=== PATIENT | female | born 1945 | race Caucasian/White ===

== ENCOUNTER 2017-06-12 07:41 | Day surgery (SDC) | payer MEDICARE ==
[2017-06-11 15:32] VITALS: BMI 31.2
--- NOTE | 2017-06-12 06:11 | HP ---
SHORT STAY HISTORY AND PHYSICAL HISTORY OF PRESENT ILLNESS: This is a 71-year-old female with anemia and occult GI bleeding. The patient was hospitalized in 01/2017 with abdominal pain and abnormal CAT scan. She has normal CBC. She was found to have poor energy, fatigue and tiredness over the last several months. She has seen Dr. Sheppard and was found to have anemia, which is microcytic. She was also seen by Dr. Vernon. The patient presently has no history of melena, hematochezia. No hematuria. The patient has seen Dr. Vernon and has received iron therapy. She had multiple stool testing done for occult blood. She had 5 stools done and all stools are positive for occult blood. The patient's anemia is getting better. She is currently much better. She comes in for an EGD and colonoscopy for anemia and also occult GI bleeding. ALLERGIES: SULFA. MEDICAL ILLNESSES: 1. Hypertension. 2. Hyperlipidemia. 3. Diabetes mellitus. 5. Colon polyp. 6. History of gastric polyp. 7. Family history of colon cancer. PHYSICAL EXAMINATION: VITAL SIGNS: Pulse is 70, blood pressure 130/80. HEENT: Conjunctivae are clear. CARDIOVASCULAR SYSTEM: Within normal limits. ABDOMEN: Soft to palpate. No organomegaly. No tenderness. No masses. ADMITTING DIAGNOSES: 1. Anemia, occult gastrointestinal bleed. 2. Colon polyp. PLAN: EGD and colonoscopy. MTDD
--- NOTE | 2017-06-12 11:53 | OP ---
DATE OF PROCEDURE: 06/12/2017 SURGEON: Oneida Miranda M.D. OPERATIVE PROCEDURE: 1. Colonoscopy with polypectomy. 2. Colonoscopy with 10 [place] heater probe therapy of polypectomy site. PREOPERATIVE DIAGNOSES: 1. Anemia. 2. History of colon polyp. 3. Occult gastrointestinal bleeding. POSTOPERATIVE DIAGNOSES: 1. Sigmoid diverticular disease. 2. Large, broad based sessile polyp in cecum, ascending colon. 3. Sessile polyp, hepatic flexure. 4. A sessile polyp descending colon, 2 sessile polyps x2 sigmoid colon. PROCEDURE IN DETAIL: The patient was placed on her left lateral position and was given sedation by A nesthesia Department. A rectal exam was done before the scope was advanced into the rectum. No lesi ons were felt on rectal exam. A [employer] video colonoscope was introduced into the rectum and advanced all the way into the cecum. The prep was excellent. The mucosa appeared normal. The appendiceal o rifice, ileocecal valve, and cecum, no pathology seen. The patient did have a polyp over the ascendi ng colon, cecum. This was a sessile broad-based polyp. This was removed completely with polypectomy snare. Post-polypectomy the polypectomy site showed mild friability. It was elected to cauterize t he polypectomy site with a 10-[place] probe with good hemostasis. A sessile hepatic flexure polyp rem corina with snare cautery with good hemostasis. Another sessile polyp over the descending colon remove d with snare cautery with good hemostasis. There were 2 small sessile polyps seen over the sigmoid c olon. Both were removed. The sigmoid colon does showed scattered diverticular disease. Retroflexio n of the scope in the rectum was normal.
--- NOTE | 2017-06-12 12:09 | OP ---
DATE OF SURGERY: 06/12/2017 DESCRIPTION OF PROCEDURE: A Pentax video gastroscope under direct vision was passed down the orophar ynx, past the GE junction, into the stomach and subsequently into the descending duodenum. The esoph ageal mucosa appeared normal. The GE junction, no pathology seen. Retroflexion failed to show any l esions in the fundus or cardia. The gastric body, gastric antrum, and incisura angularis, no patholo gy seen. The duodenal bulb and also the postbulbar area of the duodenum shows multiple ulcerations. The descending duodenum, no pathology seen. Biopsies obtained from the gastric antrum and gastric b tala. The stomach was decompressed and the scope removed. DISCHARGE PLANNING: Ms. Erika Guerrier is a very pleasant 71-year-old female with family h istory of colon cancer and also has a personal history of colon polyp. The patient was found to have anemia recently and has had stool exam done. The stool exam came back positive for occult blood. S he underwent a colonoscopy, polypectomy and also EGD with biopsy. DISCHARGE RECOMMENDATIONS: 1. Omeprazole 40 mg once a day. 2. Continue iron supplement. 3. The patient advised to call me if she develops abdominal pain, hematochezia or fever. 4. To come back to the clinic in 2 weeks.
[2017-06-12] MEDS ORDERED: Lidocaine 1% PF 5 ML VIAL ONE (14:45)
[2017-06-12] MEDS ORDERED: PROPOFOL 200 MG/20 ML VIAL ONE (14:45)
== END 2017-06-12 12:00 | disposition home or self-care (01) ==
LOC: SDC 07:41
PROVIDERS: ATTEND Internal Medicine Gastroenterology
PROC: 0DBK8ZX Excision of Ascending Colon, Via Natural or Artificial Opening Endoscopic, Diagnostic (ICD-10-PCS; principal; 2017-06-12)
PROC: 0DBL8ZX Excision of Transverse Colon, Via Natural or Artificial Opening Endoscopic, Diagnostic (ICD-10-PCS; 2017-06-12)
PROC: 0DBN8ZX Excision of Sigmoid Colon, Via Natural or Artificial Opening Endoscopic, Diagnostic (ICD-10-PCS; 2017-06-12)
PROC: 0DBM8ZX Excision of Descending Colon, Via Natural or Artificial Opening Endoscopic, Diagnostic (ICD-10-PCS; 2017-06-12)
PROC: 0DBH8ZX Excision of Cecum, Via Natural or Artificial Opening Endoscopic, Diagnostic (ICD-10-PCS; 2017-06-12)
PROC: 0DB68ZX Excision of Stomach, Via Natural or Artificial Opening Endoscopic, Diagnostic (ICD-10-PCS; 2017-06-12)
DX: D12.0 Benign neoplasm of cecum (principal); D12.4 Benign neoplasm of descending colon; D12.3 Benign neoplasm of transverse colon; D12.5 Benign neoplasm of sigmoid colon; K29.50 Unspecified chronic gastritis without bleeding; D50.0 Iron deficiency anemia secondary to blood loss (chronic); R19.5 Other fecal abnormalities; K57.30 Diverticulosis of large intestine without perforation or abscess without bleeding; I10 Essential (primary) hypertension; E78.5 Hyperlipidemia, unspecified; E11.9 Type 2 diabetes mellitus without complications; Z88.2 Allergy status to sulfonamides; Z80.0 Family history of malignant neoplasm of digestive organs; Z87.19 Personal history of other diseases of the digestive system; Z98.890 Other specified postprocedural states
CPT/HCPCS: 36416; 88305; 88312; J2001; J2704

== ENCOUNTER 2018-01-03 08:56 | Outpatient (CLI) | payer MEDICARE ==
--- NOTE | 2018-01-03 11:13 | ULT ---
COMPLETE ABDOMINAL ULTRASOUND: History: 72-year-old female with iron deficiency anemia, chronic kidney disease stage 3, check for liver size and texture and splenic size. R16.1 FINDINGS: The liver is minimally enlarged with heterogeneous echogenicity measuring approximately 20 cm in cran iocaudal length. The gallbladder has been removed. Common bile duct 0.8 cm without significant intrah epatic ductal dilatation. The visualized pancreas, IVC, and aorta are unremarkable. The spleen is at least borderline enlarged. By prior CT, maximum anterior posterior length was approximately 15 cm, on today's study spleen size measures approximately 6.1 x 11.3 x 11.5 cm which by volume size is certai nly borderline to minimally enlarged and probably not significantly changed. 4.4 x 4.9 cm diameter le ft lower pole renal cyst with other smaller too small to definitely characterized low attenuation foc i, evidence for multiple small cysts. No renal hydronephrosis. No abnormal fluid collection. IMPRESSION: Minimal liver enlargement with heterogenicity, evidence for nonspecific hepatic parenchymal disease. Status post cholecystectomy with 0.8 cm common bile duct but no intrahepatic ductal dilatation. At le ast borderline sized to minimally enlarged spleen with little change from the prior study, CT of 02-11-17. Bilateral renal cysts. No evidence for other significant acute process. POS: [facility]
== END 2018-01-03 08:57 | disposition home or self-care (01) ==
LOC: SCSULT 08:56
PROVIDERS: ATTEND Internal Medicine Medical Oncology
DX: R16.2 Hepatomegaly with splenomegaly, not elsewhere classified (principal); N28.1 Cyst of kidney, acquired; K76.9 Liver disease, unspecified; Z90.49 Acquired absence of other specified parts of digestive tract
CPT/HCPCS: 76700

== ENCOUNTER 2020-02-27 13:12 | Inpatient (IN) | payer MEDICARE, OTHER ==
[2020-02-27] MEDS ORDERED: Acetaminophen 500 MG TAB ONE (14:09)
--- NOTE | 2020-02-27 14:12 | RAD ---
Exam: Chest one view HISTORY:Cough. Positive COVID 9 days ago. Dyspnea. Comparison: 09/05/2016 FINDINGS: Cardiac silhouette: Normal Aorta: Atherosclerotic Pulmonary vessels: Normal Costophrenic angles: Clear LUNGS: Scattered interstitial opacities may represent infiltrate. No consolidation. Pneumothorax: None Osseous abnormalities: None IMPRESSION: 1. Scattered interstitial opacities may represent infiltrate from COVID pneumonia. 2. Atherosclerosis.
[2020-02-27 14:31] LABS: #Basophils 0.1 thou/uL (0.0-0.2); #Eosinphils 0.2 thou/uL (0.0-0.7); #Lymphocytes 1.4 thou/uL (1.20-3.40); #Monocytes 0.9 thou/uL (0.11-0.59); #Neutrophils 5.6 thou/uL (1.40-6.50); %Basophils 0.7 % (0.0-1.0); %Lymphocytes 17.1 % (21.0-51.0); %Monocytes 10.8 % (0.0-10.0); %Neutrophils 69.4 % (42.0-75.0); Mean Corpuscular HGB CONC 32.5 g/dL (32.0-36.0); Mean Corpuscular Hemoglobin 30.8 pg (27.0-31.0); Mean Corpuscular Volume 94.6 fL (78.0-98.0); Mean Platelet Volume 9.8 fL (7.4-10.4); Platelet Count 107 thou/uL (130-400); RBC Distribution Width 14.8 % (11.5-14.5); Red Blood Cell (RBC) Count 3.23 mill/uL (4.20-5.40)
[2020-02-27 14:53] LABS: ALT (SGPT) 29 U/L (8-55); AST (SGOT) 66 U/L (5-34); Albumin 2.9 g/dL (3.4-4.8); Alkaline Phosphatase 46 U/L (40-110); Anion Gap 10 mmol/L (10-20); BUN (Urea Nitrogen) 33 mg/dL (9.8-20.1); Bilirubin, Total 0.9 mg/dL (0.2-1.2); Calc. Creatinine Clearance 0 mL/min (70-130); Carbon Dioxide 19 mmol/L (23-31); Chloride 110 mmol/L (98-107); Estimated GFR-MDRD 31; Globulin 3.1 g/dL (2.4-3.5); Glucose 147 mg/dL (83-110); Magnesium 1.4 mg/dL (1.6-2.6); Potassium 4.4 mmol/L (3.5-5.1); Sodium 135 mmol/L (136-145)
[2020-02-27] MEDS ORDERED: Sodium Chloride 0.9% 1,000 ML IV SCH (16:15)
[2020-02-27] MEDS ORDERED: HYDROcodone/Acetaminophen 5/325 mg Tablet PO PRN (16:16)
[2020-02-27] MEDS ORDERED: Guaifenesin DM 100-10/5 ML UDCUP PO PRN (16:16)
[2020-02-27] MEDS ORDERED: Calcium Carbonate 500 MG ChewTAB PO PRN (16:16)
[2020-02-27] MEDS ORDERED: Acetaminophen 325 MG TAB PO PRN (16:16)
[2020-02-27] MEDS ORDERED: Senokot S 8.6-50 MG TAB PO PRN (16:16)
[2020-02-27] MEDS ORDERED: Ondansetron PF 4 MG/2 ML Vial IVP PRN (16:17)
[2020-02-27] MEDS ORDERED: Dextrose 50% Abboject 50 ML SYRINGE SLOW IVP PRN (16:21)
[2020-02-27] MEDS ORDERED: Dextrose 5% in Water 1,000 ML IV PRN (16:21)
[2020-02-27] MEDS ORDERED: Dexamethasone 4 mg/ml Vial SLOW IVP SCH (16:30)
--- NOTE | 2020-02-27 16:35 | PDOC.HHP ---
Hospitalist HPI - History of Present Illness Short of breath History of Present Illness: The patient is a pleasant 74 years old female who has significant past medical history of diabetes type 2, hypertension, dyslipidemia, who was diagnosed with Covid 9 days ago. Presented to ED with worsening dyspnea and hypoxia. Patient reported for the last couple days, she experienced more cough and progressive worsening dyspnea, and generalized weakness. It was reported that when EMS arrived, her oxygen was in the low 90, she was placed on 2 L. She also reports some diarrhea for the past few days, watery, denies any hematochezia. Patient reports positive for sick contact. Initial chest work-up in the ED including chest x-ray, finding consistent with Covid pneumonia. Patient also with multiple electrolytes abnormalities, secondary to her diarrhea. Patient attributes to the fact that she was on a course of antibiotics recently. She denies any abdominal pain. Hospitalist was asked to admit the patient for acute hypoxic respiratory failure secondary to Covid pneumonia Hospitalist ROS - Review of Systems Other: Complete review of systems have been assessed and discussed with the patient. Negative and positive pertinent symptoms noted in the HPI; ALL other systems are reviewed and negative. Hospitalist History - Past Medical History Cardiac: reports: HTN, Hyperlipidemia Endocrine: reports: Diabetes - Past Surgical History Past Surgical History: reports: Cholecystectomy, Tubal Ligation - Family History Family History: reports: no pertinent history - Social History Smoking Status: Never smoker Alcohol: reports: None Drugs: reports: none Living Situation: With Family Activity level: independent ambulation - Exam General Appearance: NAD, awake alert Eye: PERRL, anicteric sclera ENT: normocephalic atraumatic Neck: supple, symmetric Heart: RRR, no murmur Respiratory: rhonchi, wheezes Gastrointestinal: soft, non-tender Extremities: no cyanosis Skin: normal turgor Neurological: cranial nerve grossly intact, normal sensation to touch Musculoskeletal: normal tone, normal strength Psychiatric: normal affect, normal behavior, A&O x 3 Hospitalist Results - Labs Result Diagrams: 02/27/20 14:07 02/27/20 14:07 Lab results: WBC 8.0 thou/uL (4.8-10.8) 02/27/20 14:07 Hgb 10.0 g/dL (12.0-16.0) L 02/27/20 14:07 Hct 30.6 % (36.0-47.0) L 02/27/20 14:07 MCV 94.6 fL (78.0-98.0) 02/27/20 14:07 Plt Count 107 thou/uL (130-400) L 02/27/20 14:07 Neutrophils % 69.4 % (42.0-75.0) 02/27/20 14:07 Sodium 135 mmol/L (136-145) L 02/27/20 14:07 Potassium 4.4 mmol/L (3.5-5.1) 02/27/20 14:07 Chloride 110 mmol/L (98-107) H 02/27/20 14:07 Carbon Dioxide 19 mmol/L (23-31) L 02/27/20 14:07 BUN 33 mg/dL (9.8-20.1) H 02/27/20 14:07 Creatinine 1.61 mg/dL (0.6-1.1) H 02/27/20 14:07 Glucose 147 mg/dL (83-110) H 02/27/20 14:07 Calcium 8.0 mg/dL (7.8-10.44) 02/27/20 14:07 Total Bilirubin 0.9 mg/dL (0.2-1.2) 02/27/20 14:07 AST 66 U/L (5-34) H 02/27/20 14:07 ALT 29 U/L (8-55) 02/27/20 14:07 Alkaline Phosphatase 46 U/L (40-110) 02/27/20 14:07 Troponin I 0.020 ng/mL (< 0.028) 02/27/20 14:07 Serum Total Protein 6.0 g/dL (6.0-8.3) 02/27/20 14:07 Albumin 2.9 g/dL (3.4-4.8) L 02/27/20 14:07 - EKG Interpretation EKG: Exam: Chest one view HISTORY:Cough. Positive COVID 9 days ago. Dyspnea. Comparison: 09/05/2016 FINDINGS: Cardiac silhouette: Normal Aorta: Atherosclerotic Pulmonary vessels: Normal Costophrenic angles: Clear LUNGS: Scattered interstitial opacities may represent infiltrate. No consolidation. Pneumothorax: None Osseous abnormalities: None IMPRESSION: 1. Scattered interstitial opacities may represent infiltrate from COVID pneumonia. 2. Atherosclerosis. Hospitalist H&P A/P - Plan Plan: This is a pleasant 74 years old female who has significant past medical history of diabetes type 2, hypertension, dyslipidemia, who was diagnosed with positive for Covid 9 days ago, presented to ED with worsening dyspnea, generalized weakness, and diarrhea. Acute hypoxic respiratory failure secondary to Covid pneumonia --Continue O2 supplement, empiric IV antibiotics with azithromycin/Rocephin. --IV Decadron, vitamin C, D, zinc --Supportive cares COVID-Pneumonia --Management as above Diarrhea --This could be related to coronavirus, however, patient was attributed to recent antibiotic. check C. difficile --Start her on probiotics Diabetes type 2 --Pending home medication, will start her on low-dose basal insulin given the fact that she is on steroid, insulin sliding scale Hypertension --BP stable, pending home medication Dyslipidemia --Resume home meds when able LALA --Secondary to volume depletion, from diarrhea --Gentle IV fluid hydration Electrolyte abnormality --Replacement Mg, follow AM DVT ppx: Lovenox GI ppx: Pepcid as pt is on steroid Code Status: Full code Anticipated Dispo: Home once medically stable
[2020-02-27] MEDS ORDERED: Magnesium Sulfate 4 GM in Sodium Chloride 0.9% 250 ML 250 ML IVPB SCH (16:45)
[2020-02-27] MEDS ORDERED: Benzonatate 100 MG CAP PO PRN (16:46)
[2020-02-27] MEDS ORDERED: cefTRIAXone\\ROCEPHIN 1 GM in Sodium Chloride 0.9% 100 ML IVPB SCH ×2 (17:00→21:00)
[2020-02-27] MEDS ORDERED: Azithromycin 500 MG in Sodium Chloride 0.9% 250 ML 250 ML IVPB SCH ×2 (18:00→20:00)
[2020-02-27] MEDS ORDERED: Famotidine/PF 20 mg/2ml Vial SLOW IVP SCH (21:00)
[2020-02-27] MEDS ORDERED: Cholecalciferol 1,000 UNITS (25 MCG) TAB PO SCH (21:00)
[2020-02-27] MEDS ORDERED: Insulin Glargine 15 UNITS in Pre-Filled Syringe SC SCH (21:00)
[2020-02-27] MEDS: Lactinex Tablet PO SCH (21:22)
[2020-02-27] MEDS: Albuterol Sulfate 2.5 mg/3 ml Neb EZPAP SCH (22:07)
[2020-02-28] MEDS: Albuterol 200 PUFF (6.7GM INHALER) INH SCH ×4 (00:17→11:26)
[2020-02-28] MEDS: Albuterol Sulfate 2.5 mg/3 ml Neb EZPAP SCH (00:58)
[2020-02-28 04:57] LABS: #Lymphocytes 0.7 thou/uL (1.20-3.40); #Monocytes 0.1 thou/uL (0.11-0.59); %Basophils 0.5 % (0.0-1.0); %Eosinophils 0.2 % (0.0-10.0); %Lymphocytes 24.7 % (21.0-51.0); %Monocytes 4.2 % (0.0-10.0); %Neutrophils 70.4 % (42.0-75.0); Hemoglobin 9.3 g/dL (12.0-16.0); Mean Corpuscular HGB CONC 32.5 g/dL (32.0-36.0); Mean Corpuscular Volume 95.1 fL (78.0-98.0); Mean Platelet Volume 10.2 fL (7.4-10.4); Platelet Count 80 thou/uL (130-400); RBC Distribution Width 14.6 % (11.5-14.5); White Blood Cell (WBC) Count 2.9 thou/uL (4.8-10.8)
[2020-02-28 05:20] LABS: CRP (Inflammatory) 2.09 mg/dL (= or < 0.5); Magnesium 2.4 mg/dL (1.6-2.6)
[2020-02-28 05:24] LABS: Anion Gap 13 mmol/L (10-20); BUN (Urea Nitrogen) 34 mg/dL (9.8-20.1); Calc. Creatinine Clearance 39 mL/min (70-130); Calcium 8.4 mg/dL (7.8-10.44); Carbon Dioxide 16 mmol/L (23-31); Chloride 112 mmol/L (98-107); Estimated GFR-MDRD 34; Glucose 200 mg/dL (83-110); Potassium 4.6 mmol/L (3.5-5.1); Sodium 136 mmol/L (136-145)
[2020-02-28] MEDS: HumaLOG 300 UNITS/3 ML VIAL SC PRN ×2 (06:05→11:26)
[2020-02-28] MEDS: Lactinex Tablet PO SCH (08:15)
[2020-02-28] MEDS ORDERED: Enoxaparin Sodium 40 MG/0.4 ML SYRINGE SC SCH (09:00)
[2020-02-28] MEDS ORDERED: Zinc Sulfate 220 MG CAP PO SCH (09:00)
[2020-02-28] MEDS ORDERED: Dexamethasone 4 mg/ml Vial SLOW IVP SCH (09:00)
[2020-02-28 12:02] VITALS: BP 170/75; TEMP 98.2
--- NOTE | 2020-02-28 14:09 | EKG ---
Test Reason : Blood Pressure : / mmHG Vent. Rate : 066 BPM Atrial Rate : 066 BPM P-R Int : 114 ms QRS Dur : 080 ms QT Int : 424 ms P-R-T Axes : 037 -15 157 degrees QTc Int : 444 ms Normal sinus rhythm Voltage criteria for left ventricular hypertrophy Abnormal ECG Confirmed by ISAIAH GOLDMAN ([id number]), medical representative LIAM BLANC ([id number]) on 02/28/2020 2:08:47 PM Referred By: Confirmed By:ISAIAH Stubbs
[2020-02-28] MEDS ORDERED: FLU VACC QS2020-21(65YR UP)/PF 240 MCG/0.7 ML SYRINGE IM ONE (21:00)
[2020-02-28] MEDS ORDERED: Famotidine/PF 20 mg/2ml Vial SLOW IVP SCH (21:00)
--- NOTE | 2020-03-02 15:48 | DIS ---
DATE OF ADMISSION: 02/27/2020 DATE OF DISCHARGE: 02/28/2020 DISCHARGE DIAGNOSES: 1. COVID-19 infection. 2. Diarrhea. 3. Diabetes mellitus type 2. 4. Hypertension. 5. Hyperlipidemia. 6. Acute kidney injury. 7. Electrolyte abnormality. DISCHARGE MEDICATIONS: No new discharge medications. HISTORY OF PRESENT ILLNESS AND HOSPITAL COURSE: The patient is a 74-year-old female with past medical history of diabetes mellitus type 2, hypertension, hyperlipidemia, who was diagnosed with COVID-19 nine days prior to presentation. She presented to the ER with complaints of diarrhea and shortness of breath. The patient was admitted to the hospital. She was given IV fluids for dehydration. The patient remained stable on room air and did not exhibit any hypoxia. At this time, she is stable for discharge with outpatient followup with her PCP in 2 weeks. Job ID: [id number]
== END 2020-02-28 12:50 | disposition home or self-care (01) | DRG 177 ==
LOC: ERS 13:12 → 2SW 15:14
PROVIDERS: ADMIT Family Medicine; ATTEND Family Medicine
DX: U07.1 COVID-19 (principal); J96.01 Acute respiratory failure with hypoxia; J12.89 Other viral pneumonia; N17.9 Acute kidney failure, unspecified; R53.1 Weakness; I10 Essential (primary) hypertension; E11.9 Type 2 diabetes mellitus without complications; E78.5 Hyperlipidemia, unspecified; F41.9 Anxiety disorder, unspecified; Z88.2 Allergy status to sulfonamides; Z98.51 Tubal ligation status; Z90.710 Acquired absence of both cervix and uterus; Z90.49 Acquired absence of other specified parts of digestive tract; R19.7 Diarrhea, unspecified; E87.8 Other disorders of electrolyte and fluid balance, not elsewhere classified
CPT/HCPCS: 36415; 36416; 71045; 80048; 80053; 82728; 83735; 84484; 85025; 85652; 86140; 93005; J0456; J0696; J1100; J1815; J3475; J3490; J7050; J7611; S0028

== ENCOUNTER 2020-03-02 21:35 | Inpatient (IN) | payer MEDICARE, OTHER ==
[2020-03-02 23:50] LABS: Bacteria/HPF None Seen HPF (None Seen); Bilirubin Negative (Negative); Blood, Urine Trace (Negative); Clarity Turbid (Clear); Glucose, Urine (Dipstick) 50 mg/dL (Negative); Ketone, Urine Trace mg/dL (Negative); Leukocyte Negative Leu/uL (Negative); Nitrite Negative (Negative); Protein, Urine (Dipstick) 100 mg/dL (Neg-Trace); Specific Gravity, Urine 1.022 (1.002-1.036); Squamous Epithelial None Seen HPF (0-3); Urobilinogen Normal mg/dL (Less than 2)
--- NOTE | 2020-03-02 23:55 | RAD ---
Chest AP view INDICATION: History of dyspnea, cough and shortness of breath COMPARISON: Prior exam dated February 27, 2020 FINDINGS: Lungs: There is worsening airspace disease of the left lower lobe. Patchy airspace opacities persist within both lungs in the upper lobes. Cardiac silhouette: Mild cardiomegaly is stable Pulmonary vasculature: Normal Pleural spaces: No pleural effusion or pneumothorax is demonstrated. Upper abdomen: No abnormality seen. Osseous structures: No acute osseous abnormality. Additional findings: None. IMPRESSION: Worsening bilateral pneumonia particularly in the left lower lobe.
[2020-03-03] MEDS ORDERED: Sodium Chloride 0.9% 100 ML ONE (00:01)
[2020-03-03] MEDS ORDERED: Cefepime 2 GM VIAL ONE (00:01)
[2020-03-03 00:37] LABS: Hemoglobin 10.4 g/dL (12.0-16.0); Mean Corpuscular HGB CONC 31.9 g/dL (32.0-36.0); Mean Corpuscular Hemoglobin 30.7 pg (27.0-31.0); Mean Corpuscular Volume 96.3 fL (78.0-98.0); Mean Platelet Volume 9.9 fL (7.4-10.4); Platelet Count 136 thou/uL (130-400); RBC Distribution Width 15.5 % (11.5-14.5); White Blood Cell (WBC) Count 27.8 thou/uL (4.8-10.8)
[2020-03-03 00:54] LABS: Band 19 % (5-11); Hypochromia SLIGHT = 6-15 cells (100X) (0-5/hpf); Lymphocytes 2 % (21-51); MDiff Complete? YES; Monocytes 1 % (0-10); Neutrophil 78 % (42-75); Platelet Morphology Comment Appears Adequate
[2020-03-03 00:58] LABS: ALT (SGPT) 41 U/L (8-55); AST (SGOT) 72 U/L (5-34); Albumin 2.5 g/dL (3.4-4.8); Alkaline Phosphatase 66 U/L (40-110); Anion Gap 22 mmol/L (10-20); BUN (Urea Nitrogen) 86 mg/dL (9.8-20.1); Bilirubin, Total 0.9 mg/dL (0.2-1.2); CK (CPK) 654 U/L (29-168); Calc. Creatinine Clearance 0 mL/min (70-130); Calcium 6.1 mg/dL (7.8-10.44); Chloride 102 mmol/L (98-107); Estimated GFR-MDRD 6; Globulin 3.3 g/dL (2.4-3.5); Glucose 216 mg/dL (83-110); Protein, Total 5.8 g/dL (6.0-8.3); Sodium 127 mmol/L (136-145)
[2020-03-03 01:05] LABS: Carbon Dioxide 8 mmol/L (23-31)
[2020-03-03 01:25] LABS: CKMB 25.6 ng/mL (0-6.6)
[2020-03-03] MEDS ORDERED: Sodium Chloride 0.9% 1,000 ML IV SCH (01:30)
[2020-03-03] MEDS ORDERED: Vancomycin HCl 1 GM in Sodium Chloride 0.9% 250 ML 300 ML IVPB SCH (01:30)
[2020-03-03] MEDS ORDERED: Acetaminophen 325 MG TAB PO PRN (01:31)
[2020-03-03] MEDS ORDERED: Calcium Gluconate 4.6 MEQ in Sodium Chloride 0.9% 100 ML IVPB SCH (01:45)
[2020-03-03] MEDS ORDERED: Calcium Gluconate 100 MG/ML 10 ML IVPB SCH (01:45)
[2020-03-03] MEDS ORDERED: metroNIDAZOLE 500 MG/100 ML BAG ONE (01:47)
[2020-03-03] MEDS ORDERED: Dextrose 5% in Water 1,000 ML IV PRN (02:14)
[2020-03-03] MEDS ORDERED: Dextrose 50% Abboject 50 ML SYRINGE SLOW IVP PRN (02:14)
--- NOTE | 2020-03-03 02:14 | PDOC.EVN ---
Event Note - Event Note Event Note: [id number]
--- NOTE | 2020-03-03 02:52 | HP ---
CHIEF COMPLAINT: Shortness of breath, diarrhea, and weakness. HISTORY OF PRESENT ILLNESS: Ms. Guerrier is a 74-year-old female who was diagnosed with COVID-19 two weeks ago, presented to the emergency room with cough, shortness of breath, diarrhea, and generalized weakness. The patient was recently discharged from the hospital for the same complaint. The patient was diagnosed with COVID-19 two weeks ago. She denies chest pain, nausea, vomiting, abdominal pain, body aches, fever, or chills. Workup in the emergency room, patient was found to be in acute renal failure with elevated creatinine of 6.2. Also, she was found to have elevated WBC count of 27.8. Elevated lactic acid. Detectable troponin. Chest x-ray showed worsening of bilateral pneumonia, particularly in the left lower lobe. Septic workup in the ED. Started on IV antibiotics. The patient is also started on IV fluids. The patient is being admitted to the hospital for further management. PAST MEDICAL HISTORY: 1. Hypertension. 2. Diabetes mellitus, type 2. 3. Hyperlipidemia. PAST SURGICAL HISTORY: 1. Cholecystectomy. 2. Hysterectomy. 3. Tubal ligation. PAST PSYCHIATRIC HISTORY: Anxiety. SOCIAL HISTORY: Lives with family at home. Denies alcohol drinking. Denies drug use. No smoking history. HOME MEDICATIONS: Please see home medication reconciliation form for updated medications. ALLERGIES: ALLERGIC TO SULFA. REVIEW OF SYSTEMS: Review of 14 systems negative except what is mentioned in history of present illness. PHYSICAL EXAMINATION: GENERAL: The patient is awake, alert, in moderate distress. VITAL SIGNS: Blood pressure 118/48, pulse is 91, respiratory rate is 20, temperature is 98.6, oxygen saturations 97% on 2 L/minute nasal cannula. HEAD AND NECK: Normocephalic, atraumatic. NECK: Supple. CHEST: Coarse bilateral breath sounds. HEART: S1, S2. Regular. ABDOMEN: Nondistended. Mildly tender. Bowel sounds present. NEUROLOGIC: Awake, alert, oriented x3. No focal deficits. PSYCH: Unable to assess. EXTREMITIES: No clubbing, no cyanosis. LABORATORY DATA: Troponin 0.07. Sodium is 126, BUN is 86, creatinine 6.2, calcium is 6.1. WBC count is 27.8, hemoglobin 10.4, platelets 136, bands are 19. Lactic acid 3.4. Chest x-ray as mentioned above in history of present illness. ASSESSMENT: 1. Sepsis. 2. Pneumonia ? healthcare-associated pneumonia. 3. Diarrhea. 4. Acute renal failure. 5. COVID-19 virus infection, diagnosed two weeks ago. 6. Diabetes mellitus with hyperglycemia. 7. Hypocalcemia. 8. Detectable troponin. No chest pain. 9. Hyponatremia. 10. Lactic acidosis. PLAN: 1. Admit to IMCU. 2. Septic workup including blood cultures. 3. Sent for C diff. 4. IV fluids. 5. Monitor kidney function and urine output. 6. IV antibiotics. The patient will be started on cefepime, vancomycin, and metronidazole for now, reassess in a.m. 7. Consider Nephrology consultation in a.m. for evaluation and further management. 8. Replace calcium. 9. Reconcile home medications. 10. DVT prophylaxis as appropriate. 11. Expected length of stay, 3 midnights or more. Job ID: [id number]
[2020-03-03 03:52] LABS: Lactic Acid 3.3 mmol/L (0.5-2.2)
[2020-03-03 03:56] LABS: ALT (SGPT) 37 U/L (8-55); AST (SGOT) 59 U/L (5-34); Albumin 2.3 g/dL (3.4-4.8); Alkaline Phosphatase 57 U/L (40-110); Anion Gap 20 mmol/L (10-20); BUN (Urea Nitrogen) 85 mg/dL (9.8-20.1); Bilirubin, Total 0.8 mg/dL (0.2-1.2); Calc. Creatinine Clearance 0 mL/min (70-130); Chloride 105 mmol/L (98-107); Estimated GFR-MDRD 7; Glucose 203 mg/dL (83-110); Potassium 4.6 mmol/L (3.5-5.1); Protein, Total 5.3 g/dL (6.0-8.3); Sodium 129 mmol/L (136-145)
[2020-03-03 04:00] LABS: Calcium 5.9 mg/dL (7.8-10.44); Carbon Dioxide 9 mmol/L (23-31)
[2020-03-03 04:39] LABS: Band 26 % (5-11); Hemoglobin 10.1 g/dL (12.0-16.0); Hypochromia SLIGHT = 6-15 cells (100X) (0-5/hpf); MDiff Complete? YES; Mean Corpuscular HGB CONC 31.2 g/dL (32.0-36.0); Mean Corpuscular Hemoglobin 30.4 pg (27.0-31.0); Mean Corpuscular Volume 97.5 fL (78.0-98.0); Mean Platelet Volume 9.8 fL (7.4-10.4); Monocytes 1 % (0-10); Neutrophil 73 % (42-75); Platelet Count 112 thou/uL (130-400); Platelet Morphology Comment Appears Decreased; RBC Distribution Width 15.3 % (11.5-14.5); White Blood Cell (WBC) Count 24.4 thou/uL (4.8-10.8)
[2020-03-03] MEDS ORDERED: Vancomycin 1.5 GRAM/300 ML BAG 1.5 GM in Premix Bag 1 BAG IVPB SCH (05:00)
[2020-03-03] MEDS: HumaLOG 300 UNITS/3 ML VIAL SC PRN (05:24)
[2020-03-03] MEDS: metroNIDAZOLE 500 MG in Premix Bag 1 BAG IVPB SCH ×3 (05:24→21:06)
[2020-03-03 05:44] LABS: Lactic Acid 2.9 mmol/L (0.5-2.2)
[2020-03-03 07:56] LABS: Glucose 157 mg/dL (83-110)
[2020-03-03] MEDS ORDERED: Heparin 10,000 UNITS/ 10 ML VIAL ONE (08:49)
[2020-03-03] MEDS: Heparin 5,000 UNITS/ML VIAL SC SCH ×2 (08:56→21:06)
[2020-03-03] MEDS ORDERED: Cefepime 1 GM in Sodium Chloride 0.9% 100 ML IVPB SCH (09:00)
[2020-03-03] MEDS ORDERED: Sodium Bicarb 50 MEQ/50 ML Abboject 8.4% SYRINGE IVP STA (10:15)
--- NOTE | 2020-03-03 11:02 | CON ---
DATE OF CONSULTATION: 03/03/2020 This is 70 minutes time, of that time, greater than 50% spent with the patient and/or the patient's unit in the hospital. REASON FOR CONSULTATION: COVID-19 infection. HISTORY OF PRESENT ILLNESS: This is a nursing service protocol consult put in by the [facility] staff for evaluation of a 74-year-old female, who has bounced back to the hospital after being admitted between 02/26 and 03/02 for COVID-19 infection. It looks like she had pretty profound metabolic acidosis with a bicarbonate of 16. On 02/27, she did not have any followup labs after that. She presented last night with bicarbonate level of 8 and acute renal failure with a creatinine of 5.8. I have reviewed her discharge medications and she had been sent home on Lasix, but nothing else that I could see that could grossly affect her renal function. Her primary complaint at this time is shortness of breath. She is very tachypneic, trying to compensate for her severe metabolic acidosis. PAST MEDICAL HISTORY: 1. Hypertension. 2. Diabetes mellitus type 2. 3. Hyperlipidemia. 4. She also thinks she had some renal problems in the past. PAST SURGICAL HISTORY: 1. Cholecystectomy. 2. Hysterectomy. 3. Tubal ligation. SOCIAL HISTORY: Lives at home. Does not drink. Does not smoke. Does not use illicit drugs. HOME MEDICATIONS: Reviewed. See chart. ALLERGIES: SULFA DRUGS. REVIEW OF SYSTEMS: Remarkable for tachypnea. She says she has not made much urine. Otherwise, negative. PHYSICAL EXAMINATION: VITAL SIGNS: Temperature 98.4, pulse 79, blood pressure 115/41, O2 saturation 99% on 100% oxygen. The patient is tachypneic at rest. HEENT: Unremarkable. NECK: No adenopathy or JVD. LUNGS: Clear without wheezing. CARDIAC: S1 and S2 regular. ABDOMEN: Soft and nontender. EXTREMITIES: No clubbing, cyanosis, or edema. LABORATORY DATA: Sodium 129, potassium 4.6, chloride 105, CO2 is 9, BUN 85, creatinine 5.8, glucose 157. White blood cell count 24.4, hematocrit 32.2, and platelet count 112. Urinalysis shows cast, white blood cells, and red blood cells. X-ray shows no acute mass or effusion. There is possibly a left lateral infiltrate, but that is difficult to definitively call. ASSESSMENT: 1. Metabolic acidosis - her main problem is metabolic acidosis from acute renal failure. She is tachypneic in response to the acidosis. 2. Recent COVID-19 infection. 3. Diabetes mellitus. RECOMMENDATIONS: 1. I have personally called Dr. Snyder for Nephrology consultation. I think she may need a session to dialysis to help with the acidosis. In the meantime, I am starting her on a bicarbonate drip and given her 100 mEq of bicarb IV. 2. I have stopped the vancomycin and that will be deleterious to her kidneys at this point. 3. I do not honestly see a role for metronidazole or the cefepime, but I will defer to primary care on this. Job ID: [id number]
[2020-03-03] MEDS: Sodium Bicarbonate 140 MEQ in Dextrose 5% in Water 1,000 ML IV SCH (11:11)
[2020-03-03 11:59] LABS: Glucose 125 mg/dL (83-110)
[2020-03-03] MEDS ORDERED: Sodium Bicarb 50 MEQ/50 ML Abboject 8.4% SYRINGE ONE (12:00)
--- NOTE | 2020-03-03 13:01 | OP ---
DATE OF PROCEDURE: 03/03/2020 PREOPERATIVE DIAGNOSES: COVID illness, pneumonia, acute renal failure, insulin-dependent diabetes mellitus, hypertension, chronic kidney disease, and IV right deltopectoral cephalic vein and right antecubital vein. POSTOPERATIVE DIAGNOSES: COVID illness, pneumonia, acute renal failure, insulin-dependent diabetes mellitus, hypertension, chronic kidney disease, and IV right deltopectoral cephalic vein and right antecubital vein. ANESTHESIA: 1% Xylocaine. PROCEDURES PERFORMED: Placement of the right femoral vein Trialysis catheter. Removal of right arm antecubital vein IV and deltopectoral cephalic vein IV. ANESTHESIA: 1% xylocaine local. DESCRIPTION OF PROCEDURE: With the patient at bedside, with proper PPE, right groin was prepared with ChloraPrep and draped in routine fashion. 1% Xylocaine was infiltrated in the skin and subcutaneous tissue. Seldinger technique used to place a Trialysis catheter, removing the J-wire, securing the catheter with 3-0 nylon suture, sterile dressing applied. Each port aspirated blood, flushed with saline solution and heparinized saline solution. The right antecubital vein IV and right deltopectoral cephalic vein IV removed and should not be replaced in a patient with CKD. She will likely need dialysis access in the future. Job ID: [id number]
[2020-03-03] MEDS ORDERED: Lorazepam 2 MG/ML VIAL SLOW IVP PRN (13:45)
[2020-03-03 15:23] LABS: HBSAB Concentration Less than 8.00 mIU/mL; HBSAg Index 0.25 S/CO (0-0.99); Hep B Surf AB Non-Reactive (NonReactive); Hep B Surf Ag Non-Reactive S/CO (NonReactive)
[2020-03-03 17:13] LABS: Glucose 123 mg/dL (83-110)
[2020-03-03] MEDS: Famotidine/PF 20 mg/2ml Vial SLOW IVP SCH (21:05)
[2020-03-03 22:23] LABS: Glucose 131 mg/dL (83-110)
--- NOTE | 2020-03-03 23:13 | CON ---
DATE OF CONSULTATION: CONSULTING PHYSICIAN: Lillian Hayes MD REQUESTING PHYSICIAN: Dr. Fuchs. REASON FOR CONSULTATION: Severe acute kidney injury and profound metabolic acidosis. IMPRESSION: 1. Severe acute kidney injury. 2. Severe metabolic acidosis in the context of seriously reduced GFR and lactic acidemia. 3. COVID infection. HISTORY OF PRESENT ILLNESS: History is that of a 74-year-old female patient who presented here with severe respiratory distress, got diagnosed with COVID infection. The patient noted with severe acute kidney injury as well as severe metabolic acidosis. As a result of this, decision has been taken to involve Renal in the management of this case. Patient does have some component of lactic acidemia. The patient noted to be having a lot of Kussmaul breathing. PAST MEDICAL HISTORY: Significant for hypertension, type 2 diabetes, dyslipidemia, and chronic kidney disease. MEDICATIONS: Reviewed as documented on Locally. SOCIAL HISTORY: No alcohol. No tobacco. No illicit drug use. ALLERGIES: TO SULFA DRUGS. REVIEW OF SYSTEMS: Could not be obtained from this patient because of severe respiratory distress. PHYSICAL EXAMINATION: GENERAL: Patient noted to be in severe respiratory distress. VITAL SIGNS: Noted with the following vital signs; blood pressure 113/56, pulse of 89; O2 sat 98%. HEENT EXAMINATION: Unremarkable. CARDIOVASCULAR SYSTEM: First and second heart sounds were heard. RESPIRATORY SYSTEM: Clear to auscultation. DIGESTIVE SYSTEM: Reveal a benign abdomen. EXTREMITIES: No peripheral edema. SKIN EXAMINATION: No new gross rash. LYMPHATICS: No peripheral lymphadenopathy. In summary, a 74-year-old female patient with severe acute on chronic kidney disease and metabolic acidosis in the context of COVID infection. PLAN: 1. The patient to benefit from emergency dialysis because of the profound metabolic acidosis. Meanwhile, the patient to continue with bicarb infusion. 2. Renally dose all medications. 3. Avoid potentially nephrotoxic agents. 4. We will continue with hemodialysis until patient metabolic acidosis and renal function improves. 5. Further management to be dependent on the clinical course. Job ID: [id number]
[2020-03-04] MEDS ORDERED: Cefepime 0.5 GM, Admixture Fee 1 EACH in Sodium Chloride 0.9% 100 ML IVPB SCH (01:00)
[2020-03-04] MEDS: Sodium Bicarbonate 140 MEQ in Dextrose 5% in Water 1,000 ML IV SCH (01:33)
[2020-03-04] MEDS ORDERED: Vancomycin 1 GM in Premix Bag 1 BAG IVPB SCH (05:00)
[2020-03-04] MEDS: metroNIDAZOLE 500 MG in Premix Bag 1 BAG IVPB SCH ×2 (05:14→15:33)
[2020-03-04] MEDS: HumaLOG 300 UNITS/3 ML VIAL SC PRN (05:55)
[2020-03-04] MEDS: Loperamide HCl 2 MG CAP PO PRN (05:59)
[2020-03-04 06:23] LABS: Anion Gap 22 mmol/L (10-20); BUN (Urea Nitrogen) 57 mg/dL (9.8-20.1); Calc. Creatinine Clearance 14 mL/min (70-130); Calcium 4.7 mg/dL (7.8-10.44); Carbon Dioxide 19 mmol/L (23-31); Chloride 96 mmol/L (98-107); Estimated GFR-MDRD 10; Glucose 210 mg/dL (83-110); Potassium 4.7 mmol/L (3.5-5.1); Sodium 132 mmol/L (136-145)
[2020-03-04 06:34] LABS: Band 11 % (5-11); Lymphocytes 7 % (21-51); MDiff Complete? YES; Mean Corpuscular HGB CONC 32.8 g/dL (32.0-36.0); Mean Corpuscular Hemoglobin 30.6 pg (27.0-31.0); Mean Corpuscular Volume 93.2 fL (78.0-98.0); Mean Platelet Volume 10.3 fL (7.4-10.4); Monocytes 5 % (0-10); Neutrophil 77 % (42-75); Platelet Count 65 thou/uL (130-400); Platelet Morphology Comment Appears Decreased; RBC Distribution Width 15.4 % (11.5-14.5); Red Blood Cell (RBC) Count 3.92 mill/uL (4.20-5.40); White Blood Cell (WBC) Count 9.8 thou/uL (4.8-10.8)
[2020-03-04] MEDS ORDERED: Calcium Gluconate 4.6 MEQ in Sodium Chloride 0.9% 100 ML IVPB SCH (06:45)
[2020-03-04] MEDS: Heparin 5,000 UNITS/ML VIAL SC SCH ×3 (07:53→21:33)
[2020-03-04] MEDS ORDERED: FLU VACC QS2020-21(65YR UP)/PF 240 MCG/0.7 ML SYRINGE IM ONE (08:30)
--- NOTE | 2020-03-04 08:54 | PRG ---
DATE OF SERVICE: 03/04/2020 SUBJECTIVE: The patient is doing much better today compared to yesterday. Breathing is easier. OBJECTIVE: VITAL SIGNS: Temperature 98.2, pulse 78, blood pressure 123/46, O2 saturation 100%, respiratory rate 18. HEENT: Unremarkable. NECK: No JVD. LUNGS: Clear. CARDIAC: S1, S2. Regular. ABDOMEN: Soft. EXTREMITIES: No edema. LABORATORY DATA: Sodium 132, potassium 4.7, chloride 96, CO2 of 19, BUN 57, creatinine 4.3, glucose 207. White blood cell count 9.8, hematocrit 36.6, and platelet count 65. ASSESSMENT: 1. COVID-19 infection. 2. Acute renal failure. 3. Metabolic acidosis secondary to acute renal failure-improved after dialysis yesterday. PLAN: 1. I will reduce the amount of bicarbonate in her IV fluids. This IV can probably be stopped after dialysis today. 2. Calcium has been replaced. 3. I do not really see the role for the antibiotics in her case and we recommend stopping that unless there is another reason to give them. Job ID: [id number]
[2020-03-04] MEDS: Sodium Bicarbonate 70 MEQ in Sodium Chloride 0.45% 1,000 ML IV SCH (09:48)
[2020-03-04] MEDS ORDERED: Heparin 10,000 UNITS/ 10 ML VIAL ONE (14:42)
--- NOTE | 2020-03-04 16:57 | PDOC.HOSPP ---
- Subjective Encounter Date: 03/04/20 Encounter Time: 14:00 Subjective: Patient seen for follow-up regarding acute on chronic renal failure. She reports feeling better. - Objective Vital Signs & Weight: Vital Signs (12 hours) Temp Pulse Ox 03/04/20 15:34 95 03/04/20 12:00 98.2 F 03/04/20 08:00 98.0 F 98 03/04/20 06:00 98.2 F Weight Admit Weight 175 lb 11.2 oz Weight 181 lb 3.2 oz Most Recent Monitor Data Heart Rate from ECG 80 NIBP 104/43 NIBP BP-Mean 63 Respiration from ECG 25 SpO2 95 I&O: 03/03/20 03/04/20 03/05/20 06:59 06:59 06:59 Intake Total 450 4010 Output Total 0 Balance 450 4010 Result Diagrams: 03/04/20 05:50 03/04/20 05:50 Additional Labs: Accuchecks 03/04/20 03/04/20 03/03/20 15:47 05:20 21:16 POC Glucose 139 H 207 H 138 H 03/03/20 17:53 POC Glucose 128 H I reviewed patient's labs and MAR EKG Reviewed by me: Yes (Telemetry: NSR) Hospitalist ROS - Review of Systems Cardiovascular: denies: chest pain, palpitations, orthopnea, paroxysmal noc. dyspnea, edema, light headedness Gastrointestinal: denies: nausea, vomiting, abdominal pain, diarrhea, constipation, melena, hematochezia - Medication Medications: Active Medications Generic Name Dose Route Start Last Admin Trade Name Freq PRN Reason Stop Dose Admin Famotidine 20 mg 03/03/20 21:00 03/03/20 21:05 Famotidine/Pf 20 Mg/2ml Vial SLOW IVP 20 mg QPM GAGANDEEP Administration Heparin Sodium (Porcine) 5,000 units 03/03/20 09:00 03/04/20 09:48 Heparin 5,000 Units/Ml Vial SC 5,000 units BID GAGANDEEP Administration Cefepime HCl 0.5 gm/ 100 mls @ 200 mls/hr 03/04/20 01:00 03/04/20 01:33 Miscellaneous Medication 1 IVPB 100 mls each/ Sodium Chloride Q24HR GAGANDEEP Administration Sodium Bicarbonate 70 meq/ 1,070 mls @ 70 mls/hr 03/04/20 08:45 03/04/20 09:48 Sodium Chloride IV 1,070 mls .[id number] GAGANDEEP Administration Insulin Human Lispro 0 units 03/03/20 02:14 03/04/20 05:55 Humalog 300 Units/3 Ml Vial SC 3 unit .MILD SLIDING SCALE PRN Administration Mild Correctional Scale Loperamide HCl 2 mg 03/04/20 04:39 03/04/20 05:59 Loperamide Hcl 2 Mg Cap PO 2 mg PRN PRN Administration Diarrhea/Loose Stools Sodium Chloride 10 ml 03/03/20 09:00 03/04/20 09:48 Flush - Normal Saline 10 Ml Syringe IVF 10 ml Q12HR GAGANDEEP Administration - Exam General Appearance: awake alert General - other findings: Obese Eye: anicteric sclera ENT: moist mucosa Neck: supple Heart: RRR Respiratory: CTAB Gastrointestinal: soft, non-tender Extremities: no cyanosis Skin: no rashes Psychiatric: normal affect, normal behavior Hosp A/P (1) Acute worsening of stage 3 chronic kidney disease Code(s): N18.30 - CHRONIC KIDNEY DISEASE, STAGE 3 UNSPECIFIED Status: Acute (2) Metabolic acidosis Code(s): E87.2 - ACIDOSIS Status: Acute (3) Hypocalcemia Code(s): E83.51 - HYPOCALCEMIA Status: Acute (4) Diabetes mellitus Code(s): E11.9 - TYPE 2 DIABETES MELLITUS WITHOUT COMPLICATIONS Status: Chronic Qualifiers: Diabetes mellitus type: type 2 Diabetes mellitus complication status: without complication (5) Dyslipidemia Code(s): E78.5 - HYPERLIPIDEMIA, UNSPECIFIED Status: Chronic (6) Hypertension Code(s): I10 - ESSENTIAL (PRIMARY) HYPERTENSION Status: Chronic Qualifiers: Hypertension type: essential hypertension Qualified Code(s): I10 - Essential (primary) hypertension - Plan Patient is clinically improving. Being dialyzed in the IMCU. Discontinue antibiotics and observe. Continue Accu-Cheks and insulin sliding scale. Monitor vital signs and titrate antihypertensives as needed. Patient received calcium gluconate earlier today. Recheck calcium level and administer calcium as needed. DVT prophylaxis with heparin.
--- NOTE | 2020-03-04 20:19 | PRG ---
DATE OF SERVICE: 03/04/2020 SUBJECTIVE: The patient is seen and examined. Noted with the following vital signs. OBJECTIVE: VITAL SIGNS: Blood pressure , pulse 89, respiratory rate of 22, O2 saturation of 98%. HEENT: Unremarkable. CARDIOVASCULAR SYSTEM: First and second heart sounds were heard. RESPIRATORY SYSTEM: Shows some rales. DIGESTIVE SYSTEM: Revealed a benign abdomen. Positive bowel sounds. EXTREMITIES: No peripheral edema. LABORATORY INVESTIGATION: Showed a sodium of 132, bicarb of 19, creatinine 4.33 with BUN of 57. IMPRESSION: 1. Severe acute kidney injury. 2. Severe metabolic acidosis responding very well to renal replacement therapy (hemodialysis). 3. Hypocalcemia. 4. Diabetes mellitus type 2. 5. Positive for . PLAN: 1. We will continue renal replacement therapy. 2. Discontinue bicarb supplementation. 3. Renally dose all medications. 4. Further management to be dependent on the clinical course. Job ID: [id number]
[2020-03-04] MEDS: Famotidine/PF 20 mg/2ml Vial SLOW IVP SCH (21:32)
[2020-03-05] MEDS: Sodium Bicarbonate 70 MEQ in Sodium Chloride 0.45% 1,000 ML IV SCH (00:51)
[2020-03-05] MEDS: Loperamide HCl 2 MG CAP PO PRN (05:15)
[2020-03-05 05:54] LABS: Anion Gap 14 mmol/L (10-20); BUN (Urea Nitrogen) 33 mg/dL (9.8-20.1); Calc. Creatinine Clearance 18 mL/min (70-130); Calcium 6.2 mg/dL (7.8-10.44); Carbon Dioxide 26 mmol/L (23-31); Chloride 97 mmol/L (98-107); Estimated GFR-MDRD 12; Glucose 163 mg/dL (83-110); Potassium 3.6 mmol/L (3.5-5.1); Sodium 133 mmol/L (136-145)
[2020-03-05 06:35] LABS: Anisocytosis SLIGHT = 6-15 cells (100X) (0-5/hpf); Band 28 % (5-11); Eosinophils 3 % (0-10); Hemoglobin 9.1 g/dL (12.0-16.0); Lymphocytes 1 % (21-51); MDiff Complete? YES; Mean Corpuscular HGB CONC 31.9 g/dL (32.0-36.0); Mean Corpuscular Hemoglobin 30.7 pg (27.0-31.0); Mean Corpuscular Volume 96.2 fL (78.0-98.0); Mean Platelet Volume 9.6 fL (7.4-10.4); Monocytes 2 % (0-10); Myelocyte 1 % (0-0); Neutrophil 65 % (42-75); Ovalocytes SLIGHT = 2-5 cells (100X) (0-1/hpf); Platelet Count 73 thou/uL (130-400); Platelet Morphology Comment Appears Decreased; RBC Distribution Width 15.5 % (11.5-14.5); Red Blood Cell (RBC) Count 2.97 mill/uL (4.20-5.40); White Blood Cell (WBC) Count 13.7 thou/uL (4.8-10.8)
--- NOTE | 2020-03-05 09:40 | PRG ---
DATE OF SERVICE: 03/05/2020 SUBJECTIVE: The patient seems to be doing okay all things considered. OBJECTIVE: VITAL SIGNS: Temperature 97.2, pulse 79, blood pressure 135/57, O2 sat 99%. Total intake 2560, output at least 200 was removed by dialysis yesterday. HEENT: Unremarkable. NECK: No adenopathy or JVD. LUNGS: Clear. CARDIAC: S1 and S2, regular. ABDOMEN: Soft. EXTREMITIES: No edema. LABORATORY DATA: Sodium 133, potassium 3.6, chloride 97, CO2 of 26, BUN 33, creatinine 3.5, glucose 163, and calcium 6.2. White blood cell count 13.7, hematocrit 28.6, and platelet count 73. ASSESSMENT: 1. COVID-19 infection. 2. Acute renal failure. 3. Corrected metabolic acidosis after dialysis. PLAN: I will stop the bicarbonate drip. Main issues now pertain to her kidneys. There are no active pulmonary issues. From my standpoint, she can move out to the floor after dialysis today. No further pulmonary recommendations at this time. We will sign off. Job ID: [id number]
[2020-03-05] MEDS: Heparin 5,000 UNITS/ML VIAL SC SCH ×2 (10:52→20:11)
[2020-03-05] MEDS ORDERED: Saccharomyces boulardii 250 MG CAP PO SCH (11:45)
--- NOTE | 2020-03-05 12:46 | RAD ---
Chest AP view INDICATION: Evaluate for infection COMPARISON: Prior exam dated March 02, 2020 FINDINGS: Lungs: There is persistent airspace disease within the left lower lobe. Patchy opacities within both upper lobes persist. Cardiac silhouette: Mild cardiac megaly is stable. Pulmonary vasculature: Normal Pleural spaces: No pleural effusion or pneumothorax is demonstrated. Upper abdomen: No abnormality seen. Osseous structures: No acute osseous abnormality. Additional findings: None. IMPRESSION: Stable bilateral pneumonia, most prominent within the left lower lobe.
[2020-03-05] MEDS ORDERED: Heparin 10,000 UNITS/ 10 ML VIAL ONE (14:38)
--- NOTE | 2020-03-05 17:26 | PDOC.HOSPP ---
- Subjective Encounter Date: 03/05/20 Encounter Time: 11:30 Subjective: Patient seen for follow-up regarding acute on chronic renal failure. She denies chest pain. She reports cough. She denies nausea or vomiting. - Objective Vital Signs & Weight: Vital Signs (12 hours) Temp Pulse Ox 03/05/20 16:00 98.4 F 03/05/20 12:00 97.8 F 03/05/20 08:00 98.7 F 03/05/20 07:53 97 Weight Admit Weight 175 lb 11.2 oz Weight 181 lb 3.2 oz Most Recent Monitor Data Heart Rate from ECG 86 NIBP 113/54 NIBP BP-Mean 73 Respiration from ECG 24 SpO2 95 I&O: 03/04/20 03/05/20 03/06/20 06:59 06:59 06:59 Intake Total 4010 2560 Output Total 0 200 Balance 4010 2360 Result Diagrams: 03/05/20 05:20 03/05/20 05:20 Additional Labs: Accuchecks 03/04/20 21:44 POC Glucose 154 H Labs and MAR reviewed by me EKG Reviewed by me: Yes (Telemetry: NSR) Hospitalist ROS - Review of Systems Respiratory: reports: cough, dry. denies: shortness of breath, hemoptysis, SOB with excertion, pleuritic pain, sputum, wheezing Cardiovascular: denies: chest pain, palpitations, orthopnea, paroxysmal noc. dyspnea, edema, light headedness - Medication Medications: Active Medications Generic Name Dose Route Start Last Admin Trade Name Freq PRN Reason Stop Dose Admin Famotidine 20 mg 03/03/20 21:00 03/04/20 21:32 Famotidine/Pf 20 Mg/2ml Vial SLOW IVP 20 mg QPM GAGANDEEP Administration Heparin Sodium (Porcine) 5,000 units 03/03/20 09:00 03/05/20 10:52 Heparin 5,000 Units/Ml Vial SC Not Given BID [facility] Insulin Human Lispro 0 units 03/03/20 02:14 03/04/20 05:55 Humalog 300 Units/3 Ml Vial SC 3 unit .MILD SLIDING SCALE PRN Administration Mild Correctional Scale Loperamide HCl 2 mg 03/04/20 04:39 03/05/20 05:15 Loperamide Hcl 2 Mg Cap PO 2 mg PRN PRN Administration Diarrhea/Loose Stools Sodium Chloride 10 ml 03/03/20 09:00 03/05/20 10:52 Flush - Normal Saline 10 Ml Syringe IVF Not Given Q12HR GAGANDEEP - Exam General - other findings: Obese ENT: moist mucosa Neck: supple Heart: RRR Respiratory: CTAB Gastrointestinal: soft, non-tender Skin: no rashes Psychiatric: normal affect, normal behavior Hosp A/P (1) Acute worsening of stage 3 chronic kidney disease Code(s): N18.30 - CHRONIC KIDNEY DISEASE, STAGE 3 UNSPECIFIED Status: Acute (2) Metabolic acidosis Code(s): E87.2 - ACIDOSIS Status: Acute (3) Hypocalcemia Code(s): E83.51 - HYPOCALCEMIA Status: Acute (4) Diabetes mellitus Code(s): E11.9 - TYPE 2 DIABETES MELLITUS WITHOUT COMPLICATIONS Status: Chronic Qualifiers: Diabetes mellitus type: type 2 Diabetes mellitus complication status: without complication (5) Dyslipidemia Code(s): E78.5 - HYPERLIPIDEMIA, UNSPECIFIED Status: Chronic (6) Hypertension Code(s): I10 - ESSENTIAL (PRIMARY) HYPERTENSION Status: Chronic Qualifiers: Hypertension type: essential hypertension Qualified Code(s): I10 - Essential (primary) hypertension - Plan Patient is clinically improving. Being dialyzed in the IMCU today. Continue Accu-Cheks and insulin sliding scale. Reasonable control of blood sugars. Monitor vital signs and titrate antihypertensives as needed. Hypertension is controlled. Calcium corrected for albumin is slightly low at 7.6. Replace calcium, recheck calcium level and albumin. Transfer to medical floor. Updated patient's daughter and separately over the telephone today. Antibiotics were discontinued yesterday.
[2020-03-05] MEDS ORDERED: Calcium Gluc 4.6 MEQ/10 ML (100 MG/ML) SLOW IVP SCH (17:45)
[2020-03-05] MEDS: Famotidine/PF 20 mg/2ml Vial SLOW IVP SCH (20:11)
[2020-03-06] MEDS ORDERED: Sodium Chloride 0.9% 500 ML IV SCH (07:15)
[2020-03-06 07:22] LABS: Actual Bicarbonate (HCO3a) 24.2 mEq/L (22-28); Calcium, Ionized (arterial) 1.05 mmol/L (1.12-1.30); Carboxyhemoglobin (COHb) 0.6 gm% (0.0-3.0); Hemoglobin (Hb) 12.4 g/dL (12.0-16.0); Potassium - ABG Lab 3.69 mmol/L (3.70-5.30); pH, Arterial 7.42 (7.35-7.45)
[2020-03-06 07:25] LABS: O2 Tension (PaO2), arterial 57.3 mmHg (> 70.0); Puncture Site LRA
[2020-03-06 07:30] LABS: Anisocytosis SLIGHT = 6-15 cells (100X) (0-5/hpf); Band 20 % (5-11); Hemoglobin 10.5 g/dL (12.0-16.0); Lymphocytes 2 % (21-51); MDiff Complete? YES; Mean Corpuscular HGB CONC 32.5 g/dL (32.0-36.0); Mean Corpuscular Hemoglobin 31.1 pg (27.0-31.0); Mean Corpuscular Volume 95.7 fL (78.0-98.0); Mean Platelet Volume 9.8 fL (7.4-10.4); Monocytes 11 % (0-10); Neutrophil 67 % (42-75); Nucleated RBC 1 % (0); Platelet Count 85 thou/uL (130-400); Platelet Morphology Comment Appears Decreased; Polychromasia SLIGHT = 2-3 cells (100X) (0-2/hpf); RBC Distribution Width 15.7 % (11.5-14.5); Red Blood Cell (RBC) Count 3.37 mill/uL (4.20-5.40); White Blood Cell (WBC) Count 21.4 thou/uL (4.8-10.8)
[2020-03-06 07:34] LABS: Anion Gap 17 mmol/L (10-20); BUN (Urea Nitrogen) 27 mg/dL (9.8-20.1); Calc. Creatinine Clearance 20 mL/min (70-130); Calcium 7.4 mg/dL (7.8-10.44); Carbon Dioxide 26 mmol/L (23-31); Chloride 98 mmol/L (98-107); Estimated GFR-MDRD 14; Glucose 112 mg/dL (83-110); Potassium 3.8 mmol/L (3.5-5.1); Sodium 137 mmol/L (136-145)
[2020-03-06] MEDS: Piperacillin/Tazobactam 2.25 GM in Sodium Chloride 0.9% 100 ML IVPB SCH ×3 (08:20→19:57)
[2020-03-06] MEDS: Saccharomyces boulardii 250 MG CAP PO SCH (08:21)
[2020-03-06] MEDS ORDERED: Vancomycin HCl 1.25 GM in Sodium Chloride 0.9% 250 ML 250 ML IVPB SCH (08:30)
--- NOTE | 2020-03-06 08:30 | RAD ---
XR Chest 1 View Portable History: Tachycardia Comparison: Radiograph prior day Findings: Pulmonary arteries are dilated. Mild pulmonary edema. Small-moderate effusions. Lungs are h ypoinflated. Multifocal peripheral airspace opacities appear somewhat nodular. Impression: Similar examination of the chest given differences in inspiratory effort.
--- NOTE | 2020-03-06 08:31 | PDOC.HOSPP ---
- Subjective Encounter Date: 03/06/20 Encounter Time: 08:00 Subjective: This morning patient's heart rate increased to 130. She was noted to be in atrial flutter. She denies palpitations or chest discomfort, but states she couldn't sleep all night due to awkward position of her bed. When I saw her, she was in Trendelenburg position. Nursing staff overnight placed her in Trendelenburg due to BP 90 systolic which improved to 113 after being placed in this position Patient reports mild productive cough. SHe states she was diagnosed with COVID two weeks ago at [facility]. ABG shows pO2 of 57. She was on 4L nasal cannula saturating 94%. This has been increased to 6L based off ABG results. Discussed convalescent plasma with the patient, she was not sure whether she wanted to consent to this and asked that I call her daughter. However her daughter is unavailable. Discussed with pulmonary who stated probably not that beneficial - Objective Vital Signs & Weight: Vital Signs (12 hours) Pulse Resp BP Pulse Ox 03/06/20 06:47 135 H 24 H 137/62 94 L Weight Admit Weight 175 lb 11.2 oz Weight 181 lb 3.2 oz Most Recent Monitor Data Heart Rate from ECG 86 NIBP 113/54 NIBP BP-Mean 73 Respiration from ECG 24 SpO2 95 I&O: 03/05/20 03/06/20 03/07/20 06:59 06:59 06:59 Intake Total 2560 480 Output Total 200 300 Balance 2360 180 Result Diagrams: 03/06/20 06:40 03/06/20 06:40 Additional Labs: Accuchecks 03/06/20 03/05/20 05:27 22:33 POC Glucose 128 H 131 H Hospitalist ROS - Review of Systems Constitutional: denies: fever, chills - Medication Medications: Active Medications Generic Name Dose Route Start Last Admin Trade Name Freq PRN Reason Stop Dose Admin Famotidine 20 mg 03/03/20 21:00 03/05/20 20:11 Famotidine/Pf 20 Mg/2ml Vial SLOW IVP 20 mg QPM GAGANDEEP Administration Heparin Sodium (Porcine) 5,000 units 03/03/20 09:00 03/05/20 20:11 Heparin 5,000 Units/Ml Vial SC Not Given BID GAGANDEEP Piperacillin Sod/Tazobactam 100 mls @ 200 mls/hr 03/06/20 09:00 03/06/20 08:20 Sod 2.25 gm/ Sodium Chloride IVPB 100 mls 0300,0900,1500,2100 GAGANDEEP Administration Insulin Human Lispro 0 units 03/03/20 02:14 03/04/20 05:55 Humalog 300 Units/3 Ml Vial SC 3 unit .MILD SLIDING SCALE PRN Administration Mild Correctional Scale Loperamide HCl 2 mg 03/04/20 04:39 03/05/20 05:15 Loperamide Hcl 2 Mg Cap PO 2 mg PRN PRN Administration Diarrhea/Loose Stools Saccharomyces Boulardii 250 mg 03/06/20 09:00 03/06/20 08:21 Saccharomyces Boulardii 250 Mg Cap PO 250 mg DAILY GAGANDEEP Administration Sodium Chloride 10 ml 03/03/20 09:00 03/06/20 08:22 Flush - Normal Saline 10 Ml Syringe IVF 10 ml Q12HR GAGANDEEP Administration - Exam General Appearance: NAD, awake alert General - other findings: agitated Eye: PERRL, anicteric sclera ENT: normocephalic atraumatic, no oropharyngeal lesions Neck: no JVD Heart: RRR, no murmur, no gallops, no rubs Respiratory - other findings: diminished breath sounds bilaterally Gastrointestinal: soft, non-tender, non-distended, normal bowel sounds Extremities: no cyanosis, no clubbing, no edema Skin: normal turgor, no lesions, no rashes Neurological: cranial nerve grossly intact, normal sensation to touch, no focal deficits, no new deficit Musculoskeletal: normal tone, normal strength, no muscle wasting Hosp A/P - Plan This is a 74 year old female who was recently diagnosed with COVID two weeks ago presenting with cough, shortness of breath, diarrhea, weakness, and was recently discharged with COVID pneumonia. Xray on admission showed bilateral pneumonia. She was originally admitted to IM and started on broad-spectrum antibiotics, but these were not continued Acute hypoxic respiratory failure possibly secondary to COVID pneumonia - chest X ray shows persistent bilateral pneumonia. Received 3L of dialysis today - WBC has increased to 21, will reorder IV vancomycin and zosyn - she received one 500 cc bolus . Oxygen requirement has been increased to 6L due to low pO2. Consider transferring to IMCU if worsens. Patient states she would prefer not to be intubated, but would be okay with non-invasive ventialtion - check ferritin, ESR, CRP, d-dimer. Heparin was on hold due to low platelets per nursing staff. If d-dimer elevated, will order therapeutic dose - pulmonary was following and signed off. Discussed with ID, no benefit to convalescent plasma Anemia - Hb 10.5, ESRD - patient received dialysis yesterday Atrial flutter - resume oral metoprolol 50 mg Hypocalcemia - corrected calcium 8.6. He received calcium gluconate 03/05
[2020-03-06] MEDS ORDERED: Vancomycin HCl 1.75 GM in Sodium Chloride 0.9% 500 ML IVPB SCH ×2 (08:45→10:00)
[2020-03-06] MEDS ORDERED: Dexamethasone 10 MG in Sodium Chloride 0.9% 50 ML IVPB SCH (09:00)
[2020-03-06] MEDS ORDERED: Piperacillin/Tazobactam 3.375 GM in Sodium Chloride 0.9% 100 ML IVPB SCH (09:00)
[2020-03-06 09:14] LABS: Glucose 114 mg/dL (83-110)
[2020-03-06] MEDS: Loperamide HCl 2 MG CAP PO PRN (09:56)
[2020-03-06] MEDS ORDERED: Vancomycin 1 GM in Premix Bag 1 BAG IVPB SCH (10:00)
[2020-03-06] MEDS ORDERED: Enoxaparin Sodium 80 MG/0.8 ML SYRINGE SC SCH ×2 (10:13→10:30)
[2020-03-06] MEDS: Heparin 5,000 UNITS/ML VIAL SC SCH ×2 (10:31→20:33)
--- NOTE | 2020-03-06 12:00 | CT ---
CTA Angio Chest W Con History: Hypoxia and tachycardia Comparison: Radiograph same day Findings: CT angiogram chest performed after the intravenous administration of contrast. 3-D renderin g provided. No proximal seminal pulmonary arterial filling defect. Pulmonary trunk is enlarged. Heart size is enlarged. No significant pericardial effusion. Large volume ascites. Abnormal peripancreatic edema, incompletely evaluated. Spleen is enlarged. Peripheral airspace opacities throughout the lungs. Small effusions. Impression: 1. No pulmonary embolism. 2. Findings of acute pancreatitis although incompletely evaluated. Pancreatic enzyme evaluation recom mended. 3. Moderate ascites. 4. Splenomegaly. 5. Commonly reported imaging findings of Covid-19 pneumonia.
[2020-03-06] MEDS ORDERED: Iopamidol-370 76% 500 ML 1 ML ONE (15:41)
[2020-03-06] MEDS: HumaLOG 300 UNITS/3 ML VIAL SC PRN (16:19)
[2020-03-06 18:09] LABS: Anion Gap 17 mmol/L (10-20); BUN (Urea Nitrogen) 33 mg/dL (9.8-20.1); Calc. Creatinine Clearance 17 mL/min (70-130); Calcium 7.2 mg/dL (7.8-10.44); Carbon Dioxide 22 mmol/L (23-31); Chloride 99 mmol/L (98-107); Estimated GFR-MDRD 12; Glucose 213 mg/dL (83-110); Potassium 4.3 mmol/L (3.5-5.1); Sodium 134 mmol/L (136-145)
[2020-03-06] MEDS: Famotidine/PF 20 mg/2ml Vial SLOW IVP SCH (19:58)
[2020-03-06] MEDS: Enoxaparin Sodium 80 MG/0.8 ML SYRINGE SC SCH (19:58)
[2020-03-07] MEDS: Piperacillin/Tazobactam 2.25 GM in Sodium Chloride 0.9% 100 ML IVPB SCH ×4 (02:12→19:52)
[2020-03-07 05:04] LABS: Anion Gap 17 mmol/L (10-20); BUN (Urea Nitrogen) 42 mg/dL (9.8-20.1); Calc. Creatinine Clearance 15 mL/min (70-130); Calcium 7.6 mg/dL (7.8-10.44); Carbon Dioxide 23 mmol/L (23-31); Chloride 99 mmol/L (98-107); Estimated GFR-MDRD 11; Glucose 218 mg/dL (83-110); Potassium 4.2 mmol/L (3.5-5.1); Sodium 135 mmol/L (136-145)
[2020-03-07] MEDS: HumaLOG 300 UNITS/3 ML VIAL SC PRN ×3 (05:30→19:53)
[2020-03-07 07:09] LABS: Band 25 % (5-11); Crenated RBC SLIGHT = 1-5 cells (100X) (None Seen); Eosinophils 1 % (0-10); Hemoglobin 9.5 g/dL (12.0-16.0); Lymphocytes 4 % (21-51); MDiff Complete? YES; Mean Corpuscular HGB CONC 31.3 g/dL (32.0-36.0); Mean Corpuscular Hemoglobin 30.7 pg (27.0-31.0); Mean Platelet Volume 9.4 fL (7.4-10.4); Monocytes 6 % (0-10); Myelocyte 1 % (0-0); Neutrophil 63 % (42-75); Platelet Count 83 thou/uL (130-400); Platelet Morphology Comment Appears Decreased; RBC Distribution Width 15.9 % (11.5-14.5); White Blood Cell (WBC) Count 26.8 thou/uL (4.8-10.8)
--- NOTE | 2020-03-07 07:10 | PRG ---
DATE OF SERVICE: 03/06/2020 SUBJECTIVE: The patient was seen. Events of today noted. The patient was transferred back to [facility] with the following vital signs. OBJECTIVE: VITAL SIGNS: Afebrile, temperature 97.4, pulse 82, respiratory rate of 22, O2 saturation of 97%, with a blood pressure 121/66. HEENT: Unremarkable. CARDIOVASCULAR SYSTEM: First and second heart sounds were heard. RESPIRATORY SYSTEM: Shows some rales. DIGESTIVE SYSTEM: Revealed a benign abdomen. Positive bowel sounds. EXTREMITIES: No peripheral edema. SKIN: No new gross rash. LYMPHATICS: No peripheral lymphadenopathy. LABORATORY INVESTIGATION: Showed a creatinine of 3.14, BUN 27, calcium of 7.4. IMPRESSION: 1. Severe acute kidney injury in the context of COVID infection. 2. Metabolic acidosis, which seems to have responded well to renal replacement therapy. 3. COVID infection. PLAN: 1. The patient is being given a break from dialysis today to allow the body to . We will re-evaluate the patient's renal function tomorrow vis-a-vis the continued need for renal replacement therapy (hemodialysis). 2. Further management to be dependent on the clinical course. Job ID: [id number]
[2020-03-07] MEDS: Enoxaparin Sodium 80 MG/0.8 ML SYRINGE SC SCH ×2 (08:21→19:51)
[2020-03-07] MEDS: Loperamide HCl 2 MG CAP PO PRN (08:22)
[2020-03-07] MEDS: Saccharomyces boulardii 250 MG CAP PO SCH (08:22)
[2020-03-07] MEDS: Heparin 5,000 UNITS/ML VIAL SC SCH ×2 (08:23→19:51)
[2020-03-07] MEDS ORDERED: Vancomycin HCl 1.25 GM in Sodium Chloride 0.9% 250 ML 250 ML IVPB SCH ×2 (09:00→10:00)
[2020-03-07] MEDS: Hydrocortisone Sod Succ/PF 100 mg/2 ml Vial IVP SCH ×2 (12:12→17:44)
--- NOTE | 2020-03-07 12:59 | PRG ---
DATE OF SERVICE: 03/07/2020 SUBJECTIVE: This patient was moved back to the [facility] for increasing respiratory discomfort related to her COVID-19 infection. In fact, she is about 10 days out of initial diagnosis. She had a CT yesterday showing diffuse infiltrates. OBJECTIVE: VITAL SIGNS: Temperature 98, pulse 74, blood pressure 137/85, O2 saturations running in the low 90s on high-flow oxygen. She will be on 3 L nasal cannula. HEENT: Unremarkable. NECK: No JVD. LUNGS: Crackles bilaterally. CARDIAC: S1, S2. Regular. ABDOMEN: Soft. EXTREMITIES: No edema. LABORATORY DATA: White blood cell count 26.8, hematocrit 30, and platelet count 83. Sodium 135, potassium 4.2, BUN 42, creatinine 4.1, glucose 219. ASSESSMENT: 1. COVID-19 infection with pneumonia. 2. Acute renal failure related to COVID infection. RECOMMENDATION: 1. Continue dialysis. 2. The patient has been started on broad-spectrum IV antibiotics by the hospitalist team - I think we are most likely looking into the COVID situation and not a secondary infection. 3. Hemodialysis is indicated by the Nephrology service. 4. Continue supplemental oxygen. Job ID: [id number]
[2020-03-07] MEDS: Diphenoxylate HCl/Atropine Tablet PO PRN (17:49)
[2020-03-07] MEDS ORDERED: Fluconazole 100 MG TAB PO SCH (18:00)
--- NOTE | 2020-03-07 18:01 | PDOC.HOSPP ---
- Subjective Encounter Date: 03/07/20 Encounter Time: 17:59 Subjective: F/u : COVID Per nursing, patient pulled off her high flow nasal cannula this morning and was placed back on 2L nasal cannula. SHe is saturating 93 to 94%. Patient still complains of weakness. Per nursing, patient ate ice cream, drank one shake. She did not have abdominal pain while eating this. Patient has poor appetite. She is still short of breath Family states patient was exposed on 02/13 to COVID. Developed rash on leg that was staph infection which was treated with antibiotics. COVID test positive on the . Her only symptom was diarrhea. Family are desperate to visit her and want a repeat COVID test. She states primary doctor told her if she is past 20 days of infection, she can be off isolation, however currently not 20 days yet . They are eager to face-time her - Objective Vital Signs & Weight: Vital Signs (12 hours) Temp Pulse Ox 03/07/20 12:00 97.7 F 03/07/20 08:00 97.4 F L 91 L Weight Admit Weight 175 lb 11.2 oz Weight 181 lb 3.2 oz Most Recent Monitor Data Heart Rate from ECG 63 NIBP 111/58 NIBP BP-Mean 75 Respiration from ECG 19 SpO2 95 I&O: 03/06/20 03/07/20 03/08/20 06:59 06:59 06:59 Intake Total 480 1842 Output Total 300 Balance 180 1842 Result Diagrams: 03/07/20 03:58 03/07/20 03:58 Additional Labs: Accuchecks 03/07/20 03/06/20 05:35 22:11 POC Glucose 185 H 186 H Hospitalist ROS - Review of Systems Constitutional: denies: fever, chills - Medication Medications: Active Medications Generic Name Dose Route Start Last Admin Trade Name Freq PRN Reason Stop Dose Admin Acetaminophen 650 mg 03/03/20 01:31 03/07/20 08:22 Acetaminophen 325 Mg Tab PO 650 mg Q4H PRN Administration Headache/Fever/Mild Pain (1-3) Diphenoxylate HCl/Atropine 1 tab 03/06/20 14:54 03/07/20 17:49 Diphenoxylate Hcl/Atropine Tablet PO 1 tab Q6H PRN Administration Diarrhea/Loose Stools Enoxaparin Sodium 80 mg 03/06/20 21:00 03/07/20 08:21 Enoxaparin Sodium 80 Mg/0.8 Ml Syringe SC 80 mg 0900,2100 GAGANDEEP Administration Famotidine 20 mg 03/03/20 21:00 03/06/20 19:58 Famotidine/Pf 20 Mg/2ml Vial SLOW IVP 20 mg QPM GAGANDEEP Administration Heparin Sodium (Porcine) 5,000 units 03/03/20 09:00 03/07/20 08:23 Heparin 5,000 Units/Ml Vial SC Not Given BID GAGANDEEP Hydrocortisone Sodium Succinate 50 mg 03/07/20 12:00 03/07/20 17:44 Hydrocortisone Sod Succ/Pf 100 Mg/2 Ml Vial IVP 03/14/20 12:01 50 mg Q6HR GAGANDEEP Administration Piperacillin Sod/Tazobactam 100 mls @ 200 mls/hr 03/06/20 09:00 03/07/20 14:05 Sod 2.25 gm/ Sodium Chloride IVPB 100 mls 0300,0900,1500,2100 GAGANDEEP Administration Insulin Human Lispro 0 units 03/03/20 02:14 03/07/20 14:07 Humalog 300 Units/3 Ml Vial SC 5 unit .MILD SLIDING SCALE PRN Administration Mild Correctional Scale Metoprolol Succinate 50 mg 03/06/20 21:00 03/06/20 19:58 Metoprolol Succinate Xl 50 Mg Tab PO 50 mg HS GAGANDEEP Administration Saccharomyces Boulardii 250 mg 03/06/20 09:00 03/07/20 08:22 Saccharomyces Boulardii 250 Mg Cap PO 250 mg DAILY GAGANDEEP Administration Sodium Chloride 10 ml 03/03/20 09:00 03/07/20 08:22 Flush - Normal Saline 10 Ml Syringe IVF 10 ml Q12HR GAGANDEEP Administration - Exam General Appearance: NAD, awake alert Eye: PERRL, anicteric sclera ENT: normocephalic atraumatic, no oropharyngeal lesions Neck: no JVD Heart: RRR, no murmur, no gallops, no rubs Respiratory - other findings: diminished breath sounds bilaterally Gastrointestinal: soft, non-tender, non-distended Extremities: no cyanosis, no clubbing, no edema Skin: normal turgor, no lesions, no rashes Neurological: cranial nerve grossly intact, normal sensation to touch, no weakness, no focal deficits Musculoskeletal: normal tone, normal strength, no muscle wasting Hosp A/P - Plan CT abdomen: moderate ascites, splenomegaly, acute pancreatitis. No PE. Peripheral opacities throughout lungs This is a 74 year old female who was recently diagnosed with COVID two weeks ago presenting with cough, shortness of breath, diarrhea, weakness, and was recently discharged with COVID pneumonia. Xray on admission showed bilateral pneumonia. She was originally admitted to [facility] and started on broad-spectrum antibiotics, but these were not continued Acute hypoxic respiratory failure possibly secondary to COVID pneumonia vs pulmonary edema - chest X ray shows persistent bilateral pneumonia. CTA showed no PE but some bilateral opacities and small effusions. She received dialysis 03/05 and will receive again tomorrow - WBC has increased to 26. She was started on dexamethasone yesterday 03/06. This could be steroid effect, will monitor. She was switched to hydrocortisone today. Continue IV vancomycin and zosyn. Send sputum culture - she was weaned down to 2L nasal cannula. Will repeat ABG since she was hypoxic on 2L yesterday - started on anticoagulation with therapeutic lovenox. Will recheck d-dimer, ferritin, ESR, CRP - pulmonary is following Malnutrition - will place dietary consult Pancreatitis - incidentally noted on CT scan. Will check a lipase Anemia - Hb 9.5, will monitor ESRD - patient received dialysis, and will be scheduled for dialysis tomorrow potentially Atrial flutter - resume oral metoprolol 50 mg . Started on anticoagulation Hypocalcemia - corrected calcium 8.6. He received calcium gluconate 03/05
[2020-03-07 18:29] LABS: Actual Bicarbonate (HCO3a) 22.5 mEq/L (22-28); Base Excess (BEa) -2.8 mEq/L (-2.0 to +3.0); CO2 Tension 41.4 mmHg (35.0-45.0); Calcium, Ionized (arterial) 1.08 mmol/L (1.12-1.30); Carboxyhemoglobin (COHb) 0.3 gm% (0.0-3.0); Hemoglobin (Hb) 10.9 g/dL (12.0-16.0); Potassium - ABG Lab 3.82 mmol/L (3.70-5.30); pH, Arterial 7.35 (7.35-7.45)
[2020-03-07 18:33] LABS: O2 Tension (PaO2), arterial 55.4 mmHg (> 70.0)
[2020-03-07 18:34] LABS: Puncture Site L RADIAL
[2020-03-07] MEDS: Famotidine/PF 20 mg/2ml Vial SLOW IVP SCH (19:51)
--- NOTE | 2020-03-07 19:58 | PRG ---
DATE OF SERVICE: 03/07/2020 SUBJECTIVE: The patient is seen and examined. OBJECTIVE: VITAL SIGNS: Blood pressure 140/48, pulse of 75, respiratory rate of 24, O2 sat 93%. HEENT: Unremarkable. CARDIOVASCULAR SYSTEM: First and second heart sounds were heard. RESPIRATORY SYSTEM: Clear to auscultation. DIGESTIVE SYSTEM: Revealed a benign abdomen. EXTREMITIES: No peripheral edema. SKIN: No new gross rash. LYMPHATICS: No peripheral lymphadenopathy. NEUROLOGIC: The patient seems to be more confused. IMPRESSION: 1. Acute on chronic kidney disease. 2. COVID infestation. 3. Metabolic acidosis improved. PLAN: Dialysis was placed on hold today. We will re-evaluate the patient's renal function tomorrow and we will likely dialyze this patient tomorrow. Afterwards, the patient will be on Sunday, Sunday, Sunday schedule. The patient's renal function is not showing any clear-cut evidence of recovery. We will make arrangements for a longer-term hemodialysis. Therefore, we will evaluate the patient in need for long-term dialysis access. Job ID: [id number]
[2020-03-08] MEDS: Hydrocortisone Sod Succ/PF 100 mg/2 ml Vial IVP SCH ×4 (00:29→16:58)
[2020-03-08] MEDS: Piperacillin/Tazobactam 2.25 GM in Sodium Chloride 0.9% 100 ML IVPB SCH ×2 (03:25→14:04)
[2020-03-08 03:43] LABS: Lactic Acid 1.9 mmol/L (0.5-2.2)
[2020-03-08 04:10] LABS: Band 12 % (5-11); Hemoglobin 9.8 g/dL (12.0-16.0); Lymphocytes 3 % (21-51); MDiff Complete? YES; Mean Corpuscular Hemoglobin 30.6 pg (27.0-31.0); Mean Corpuscular Volume 95.7 fL (78.0-98.0); Mean Platelet Volume 10.1 fL (7.4-10.4); Metamyelocyte 1 % (0-0); Monocytes 6 % (0-10); Myelocyte 1 % (0-0); Neutrophil 77 % (42-75); Platelet Count 102 thou/uL (130-400); Platelet Morphology Comment Appears Decreased; RBC Distribution Width 15.8 % (11.5-14.5); Red Blood Cell (RBC) Count 3.19 mill/uL (4.20-5.40); White Blood Cell (WBC) Count 30.8 thou/uL (4.8-10.8)
[2020-03-08] MEDS: HumaLOG 300 UNITS/3 ML VIAL SC PRN ×3 (05:42→21:02)
[2020-03-08 06:50] LABS: Anion Gap 18 mmol/L (10-20); BUN (Urea Nitrogen) 60 mg/dL (9.8-20.1); Calc. Creatinine Clearance 13 mL/min (70-130); Calcium 7.5 mg/dL (7.8-10.44); Carbon Dioxide 20 mmol/L (23-31); Chloride 100 mmol/L (98-107); Estimated GFR-MDRD 9; Glucose 288 mg/dL (83-110); Sodium 134 mmol/L (136-145)
[2020-03-08 09:24] LABS: Vancomycin, Random 24.6 ug/mL (See Comment)
--- NOTE | 2020-03-08 09:31 | RAD ---
XR Chest 1 View Portable HISTORY: Worsening leukocytosis, pneumonia COMPARISON: 03/06/2020 FINDINGS: The heart size normal. The aorta is tortuous. There patchy multifocal opacities. No pneumot horaces are seen. There are small bilateral pleural effusions.
--- NOTE | 2020-03-08 09:59 | PRG ---
DATE OF SERVICE: 03/08/2020 SUBJECTIVE: The patient is doing okay aside from confusion. She is about to start dialysis morning. OBJECTIVE: VITAL SIGNS: On exam, her O2 saturation is 99% on 5 L, temperature 96.9, pulse 54, and blood pressure 120/45. HEENT: Unremarkable. NECK: No JVD. LUNGS: Few inspiratory crackles. CARDIAC: S1 and S2. Regular. ABDOMEN: Soft. EXTREMITIES: No edema. IMAGING STUDIES: Her chest x-ray shows some infiltrates, but overall not bad compared to most COVID patients. LABORATORY DATA: Sodium 134, potassium 4, BUN 60, creatinine 4.9, glucose 288. Ferritin is 513. C-reactive protein 15. White blood cell count 30, hematocrit 30.5, and platelet count 102. ASSESSMENT: 1. COVID-19 pneumonia. 2. Acute hypoxic respiratory failure. 3. Acute renal failure. 4. 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 PLAN: The patient was started on broad-spectrum IV antibiotics over the weekend by the Hospitalist Group. I am going to reduce her steroid dose because of the development of steroid psychosis. Overall, her oxygenation looks good. Job ID: [id number]
[2020-03-08] MEDS ORDERED: Heparin 10,000 UNITS/ 10 ML VIAL ONE (10:06)
[2020-03-08] MEDS ORDERED: Vancomycin HCl 1.25 GM in Sodium Chloride 0.9% 250 ML 250 ML IVPB SCH (10:30)
[2020-03-08] MEDS ORDERED: Vancomycin Sliding Scale 1 EACH FS ONE (10:30)
[2020-03-08] MEDS ORDERED: HOLD VANCOMYCIN FOR LEVEL >20 FS SCH (10:30)
[2020-03-08] MEDS ORDERED: Vancomycin HCl 750 MG in Sodium Chloride 0.9% 250 ML 250 ML IVPB SCH (10:30)
[2020-03-08] MEDS ORDERED: Vancomycin HCl 500 MG in Sodium Chloride 0.9% 100 ML IVPB SCH (10:30)
[2020-03-08] MEDS ORDERED: Vancomycin 1 GM in Premix Bag 1 BAG IVPB SCH (10:30)
[2020-03-08 10:31] LABS: SARS-CoV-2 MS2 Positive; SARS-CoV-2 N Gene Positive; SARS-CoV-2 S Gene Positive; SARS-CoV-2 by NAA DETECTED (NotDetected); SARS-CoV-2 orf1ab Positive
[2020-03-08] MEDS ORDERED: Piperacillin/Tazobactam 2.25 GM in Sodium Chloride 0.9% 100 ML IVPB SCH (11:00)
[2020-03-08] MEDS: Saccharomyces boulardii 250 MG CAP PO SCH (14:05)
[2020-03-08] MEDS: Fluconazole 100 MG TAB PO SCH (14:05)
[2020-03-08] MEDS: Heparin 5,000 UNITS/ML VIAL SC SCH ×2 (14:05→20:57)
[2020-03-08] MEDS: Diphenoxylate HCl/Atropine Tablet PO PRN (14:05)
[2020-03-08] MEDS ORDERED: Cefepime 1 GM in Sodium Chloride 0.9% 100 ML IVPB SCH (16:00)
--- NOTE | 2020-03-08 17:58 | PDOC.HOSPP ---
- Subjective Encounter Date: 03/08/20 Encounter Time: 15:00 Subjective: F/u: COVID pneumonia, diarrhea The patient states she still feels weak. She has nonproductive cough. She still has no appetite because of her shortness of breath. She denies abdominal pain, nausea or vomiting . She reports having three loose stools today. She did get lomotil ABG yesterday showed pO2 of 55 on 2L nasal cannula, therefore she was placed on 4L nasal cannula Dialysis was attempted today but her blood pressure dropped to 90 systolic per occupational therapy technician - Objective Vital Signs & Weight: Vital Signs (12 hours) Temp Pulse Ox 03/08/20 17:45 96.3 F L 03/08/20 12:00 96.3 F L 03/08/20 08:00 97.0 F L 03/08/20 07:55 98 Weight Admit Weight 175 lb 11.2 oz Weight 181 lb 3.2 oz Most Recent Monitor Data Heart Rate from ECG 62 NIBP 123/42 NIBP BP-Mean 69 Respiration from ECG 19 SpO2 99 I&O: 03/07/20 03/08/20 03/09/20 06:59 06:59 06:59 Intake Total 1842 1521 240 Output Total 2 Balance 1842 1519 240 Result Diagrams: 03/08/20 03:15 03/08/20 03:15 Additional Labs: Accuchecks 03/08/20 03/08/20 03/08/20 16:12 11:26 05:46 POC Glucose 223 H 174 H 266 H 03/08/20 03/07/20 03/07/20 00:40 19:59 18:01 POC Glucose 276 H 317 H 311 H 03/07/20 03/06/20 14:11 16:16 POC Glucose 304 H 208 H Hospitalist ROS - Review of Systems Constitutional: denies: fever, chills - Medication Medications: Active Medications Generic Name Dose Route Start Last Admin Trade Name Freq PRN Reason Stop Dose Admin Acetaminophen 650 mg 03/03/20 01:31 03/07/20 08:22 Acetaminophen 325 Mg Tab PO 650 mg Q4H PRN Administration Headache/Fever/Mild Pain (1-3) Diphenoxylate HCl/Atropine 1 tab 03/06/20 14:54 03/08/20 14:05 Diphenoxylate Hcl/Atropine Tablet PO 1 tab Q6H PRN Administration Diarrhea/Loose Stools Famotidine 20 mg 03/03/20 21:00 03/07/20 19:51 Famotidine/Pf 20 Mg/2ml Vial SLOW IVP 20 mg QPM GAGANDEEP Administration Fluconazole 100 mg 03/08/20 09:00 03/08/20 14:05 Fluconazole 100 Mg Tab PO 100 mg DAILY GAGANDEEP Administration Heparin Sodium (Porcine) 5,000 units 03/03/20 09:00 03/08/20 14:05 Heparin 5,000 Units/Ml Vial SC Not Given BID GAGANDEEP Hydrocortisone Sodium Succinate 50 mg 03/08/20 12:00 03/08/20 16:58 Hydrocortisone Sod Succ/Pf 100 Mg/2 Ml Vial IVP 03/15/20 12:01 50 mg Q6HR GAGANDEEP Administration Cefepime HCl 1 gm/ Sodium 100 mls @ 200 mls/hr 03/08/20 16:00 03/08/20 16:18 Chloride IVPB 03/08/20 18:00 100 mls 1600 GAGANDEEP Administration Insulin Human Lispro 0 units 03/03/20 02:14 03/08/20 17:24 Humalog 300 Units/3 Ml Vial SC 3 unit .MILD SLIDING SCALE PRN Administration Mild Correctional Scale Metoprolol Succinate 50 mg 03/06/20 21:00 03/07/20 19:52 Metoprolol Succinate Xl 50 Mg Tab PO 50 mg HS GAGANDEEP Administration Saccharomyces Boulardii 250 mg 03/06/20 09:00 03/08/20 14:05 Saccharomyces Boulardii 250 Mg Cap PO 250 mg DAILY GAGANDEEP Administration Sodium Chloride 10 ml 03/03/20 09:00 03/08/20 14:06 Flush - Normal Saline 10 Ml Syringe IVF 10 ml Q12HR GAGANDEEP Administration - Exam General Appearance: NAD, awake alert Eye: PERRL, anicteric sclera ENT: normocephalic atraumatic, no oropharyngeal lesions Neck: no JVD Heart: RRR, no murmur, no gallops, no rubs Respiratory: no rales, no ronchi Respiratory - other findings: diminished breath sounds bilaterally Gastrointestinal: soft, non-tender, non-distended, normal bowel sounds Extremities: no cyanosis, no clubbing, no edema Skin: normal turgor, no lesions, no rashes Hosp A/P - Plan CT abdomen: moderate ascites, splenomegaly, acute pancreatitis. No PE. Peripheral opacities throughout lungs This is a 74 year old female who was recently diagnosed with COVID two weeks ago presenting with cough, shortness of breath, diarrhea, weakness, and was recently discharged with COVID pneumonia. Xray on admission showed bilateral pneumonia. She was originally admitted to [facility] and started on broad-spectrum antibiotics, but these were not continued Acute hypoxic respiratory failure possibly secondary to COVID pneumonia vs pulmonary edema - chest X ray shows persistent bilateral pneumonia. CTA showed no PE but some bilateral opacities and small effusions. -She is getting dialysis today however did have some hypotension during dialysis unclear how much fluid was removed -White blood cell count has increased to 30. We will continue vancomycin ,and switch Zosyn to cefepime -Continue hydrocortisone -Continue 4 L nasal cannula. Mental status appears to be better with this -Continue therapeutic Lovenox. D-dimer has decreased from 16-7 -Ferritin is still around 500, but CRP has improved to 15 from 22 -We will attempt convalescent plasma although I am not hopeful that this will help much -attempted calling [facility] today however there is no response Diarrhea - patient was started on lomotil prn. Stool cultures, C. difficile were negative - will check fecal fat content Malnutrition -Dietitian was consulted and recommended Nepro 3 times daily Pancreatitis - incidentally noted on CT scan. Will check a lipase level. No abdominal pain, nausea, vomiting Anemia - Hb 9.5, will monitor ESRD - patient received dialysis, and will be scheduled for dialysis tomorrow potentially Atrial flutter - resume oral metoprolol 50 mg . Started on anticoagulation Hypocalcemia - corrected calcium 8.6. He received calcium gluconate 03/05 Disposition: pending improvement in oxygenation
--- NOTE | 2020-03-08 18:35 | PRG ---
DATE OF SERVICE: 03/08/2020 SUBECTIVE: The patient was seen and examined, noted with the following vital signs. OBJECTIVE: VITAL SIGNS: Afebrile, temperature 96.3, blood pressure 123/42, with a pulse of 61, O2 saturation of 98%. HEENT: Unremarkable. CARDIOVASCULAR: First and second heart sounds were heard. RESPIRATORY SYSTEM: Clear to auscultation. DIGESTIVE SYSTEM: Revealed a benign abdomen. EXTREMITIES: No peripheral edema LABORATORY INVESTIGATION: Showed a hemoglobin of 9.8. Chemistry showed a creatinine 4.92, BUN of 60. IMPRESSION: 1. Acute on chronic kidney disease, not yet ready to come off dialysis. 2. Mild metabolic acidosis. 3. Mild hyponatremia. PLAN: The patient to be dialyzed today and to remain on Sunday, Sunday, Sunday, in which, we will be re-evaluating the renal function for any possible recovery to the point of not requiring hemodialysis. If the patient is to continue to require hemodialysis, we will begin to make arrangement for permanent dialysis catheter for long-term plan/outpatient dialysis placement. Job ID: [id number]
[2020-03-08] MEDS: Famotidine/PF 20 mg/2ml Vial SLOW IVP SCH (20:56)
[2020-03-08] MEDS: Enoxaparin Sodium 80 MG/0.8 ML SYRINGE SC SCH (20:57)
[2020-03-08] MEDS ORDERED: Hydrocortisone Sod Succ/PF 100 mg/2 ml Vial IVP SCH (21:00)
[2020-03-09] MEDS: Hydrocortisone Sod Succ/PF 100 mg/2 ml Vial IVP SCH ×4 (00:26→20:47)
[2020-03-09 04:09] LABS: Anion Gap 16 mmol/L (10-20); BUN (Urea Nitrogen) 39 mg/dL (9.8-20.1); Calc. Creatinine Clearance 19 mL/min (70-130); Calcium 7.7 mg/dL (7.8-10.44); Carbon Dioxide 22 mmol/L (23-31); Chloride 101 mmol/L (98-107); Estimated GFR-MDRD 14; Glucose 241 mg/dL (83-110); Lipase 182 U/L (8-78); Potassium 3.9 mmol/L (3.5-5.1); Sodium 135 mmol/L (136-145)
[2020-03-09] MEDS: HumaLOG 300 UNITS/3 ML VIAL SC PRN ×4 (05:39→20:52)
[2020-03-09 05:42] LABS: Anisocytosis SLIGHT = 6-15 cells (100X) (0-5/hpf); Band 25 % (5-11); Hemoglobin 9.1 g/dL (12.0-16.0); Lymphocytes 1 % (21-51); MDiff Complete? YES; Mean Corpuscular HGB CONC 31.6 g/dL (32.0-36.0); Mean Corpuscular Hemoglobin 30.4 pg (27.0-31.0); Mean Corpuscular Volume 96.1 fL (78.0-98.0); Mean Platelet Volume 10.2 fL (7.4-10.4); Monocytes 4 % (0-10); Neutrophil 70 % (42-75); Platelet Count 67 thou/uL (130-400); Platelet Morphology Comment Appears Decreased; RBC Distribution Width 16.1 % (11.5-14.5); Red Blood Cell (RBC) Count 2.99 mill/uL (4.20-5.40); White Blood Cell (WBC) Count 24.6 thou/uL (4.8-10.8)
[2020-03-09] MEDS: Heparin 5,000 UNITS/ML VIAL SC SCH ×2 (07:20→21:49)
[2020-03-09] MEDS: Fluconazole 100 MG TAB PO SCH (08:38)
[2020-03-09] MEDS: Saccharomyces boulardii 250 MG CAP PO SCH (08:38)
--- NOTE | 2020-03-09 09:05 | PRG ---
DATE OF SERVICE: 03/09/2020 SUBJECTIVE: This is hospital day 7 for this patient. I have told she was originally diagnosed with the wilcox virus back on the , but I am not entirely sure of the date. The nurse is wanting to get her out of isolation. OBJECTIVE: VITAL SIGNS: Temperature 97.6, pulse 60, blood pressure 139/57, O2 saturation 93% on 4 L. HEENT: Unremarkable. NECK: No adenopathy or JVD. LUNGS: Some inspiratory crackles bilaterally. CARDIAC: S1 and S2, regular. ABDOMEN: Soft. EXTREMITIES: No edema. LABORATORY DATA: White blood cell count 24.6, hematocrit 28.7, and platelet count 67. Sodium 135, potassium 3.9, BUN 39, creatinine 3.3, glucose 241. ASSESSMENT: 1. Acute renal failure secondary to COVID-19. 2. COVID-19 infection. 3. Altered mental status. PLAN: I am going to decrease her steroids further today. She needs to get up in a chair. She needs to continue evaluation with Physical Therapy and Occupational Therapy. Job ID: [id number]
[2020-03-09] MEDS: Diphenoxylate HCl/Atropine Tablet PO PRN (13:50)
[2020-03-09] MEDS ORDERED: BIOTENE MOUTH SPRAY 44.3 ML MM PRN (16:40)
[2020-03-09] MEDS: Cefepime 0.5 GM, Admixture Fee 1 EACH in Sodium Chloride 0.9% 100 ML IVPB SCH (18:25)
--- NOTE | 2020-03-09 18:35 | PDOC.HOSPP ---
- Subjective Encounter Date: 03/09/20 Encounter Time: 13:00 Subjective: F/u: COVID The patient appears to be more alert . She still has diminished appetite. She states she received imodium this morning for diarrhea. Her cough has improved some. She is still weak. She is tired of not being able to see her family She desaturated to 70% while sitting on the edge of the bed for a few seconds but saturations improved from 85 to 93%. She received convalescent plasma 03/08 - Objective Vital Signs & Weight: Vital Signs (12 hours) Temp Pulse Ox 03/09/20 16:00 97.5 F L 03/09/20 12:00 97.6 F 03/09/20 08:14 94 L 03/09/20 08:00 97.8 F 03/09/20 07:30 98 Weight Admit Weight 175 lb 11.2 oz Weight 181 lb 3.2 oz Most Recent Monitor Data Heart Rate from ECG 61 NIBP 162/56 NIBP BP-Mean 91 Respiration from ECG 19 SpO2 95 I&O: 03/08/20 03/09/20 03/10/20 06:59 06:59 06:59 Intake Total 1521 1930 Output Total 2 Balance 1519 1930 Result Diagrams: 03/09/20 03:30 03/09/20 03:30 Additional Labs: Accuchecks 03/09/20 03/09/20 03/08/20 12:30 05:39 21:00 POC Glucose 241 H 216 H 210 H Hospitalist ROS - Review of Systems Constitutional: denies: fever, chills - Medication Medications: Active Medications Generic Name Dose Route Start Last Admin Trade Name Lamonteq PRN Reason Stop Dose Admin Acetaminophen 650 mg 03/03/20 01:31 03/07/20 08:22 Acetaminophen 325 Mg Tab PO 650 mg Q4H PRN Administration Headache/Fever/Mild Pain (1-3) Diphenoxylate HCl/Atropine 1 tab 03/06/20 14:54 03/09/20 13:50 Diphenoxylate Hcl/Atropine Tablet PO 1 tab Q6H PRN Administration Diarrhea/Loose Stools Enoxaparin Sodium 80 mg 03/08/20 21:00 03/08/20 20:57 Enoxaparin Sodium 80 Mg/0.8 Ml Syringe SC 80 mg 2100 GAGANDEEP Administration Famotidine 20 mg 03/03/20 21:00 03/08/20 20:56 Famotidine/Pf 20 Mg/2ml Vial SLOW IVP 20 mg QPM GAGANDEEP Administration Fluconazole 100 mg 03/08/20 09:00 03/09/20 08:38 Fluconazole 100 Mg Tab PO 100 mg DAILY GAGANDEEP Administration Heparin Sodium (Porcine) 5,000 units 03/03/20 09:00 03/09/20 07:20 Heparin 5,000 Units/Ml Vial SC Not Given BID GAGANDEEP Hydrocortisone Sodium Succinate 50 mg 03/09/20 09:00 03/09/20 12:09 Hydrocortisone Sod Succ/Pf 100 Mg/2 Ml Vial IVP 03/15/20 12:01 50 mg BID GAGANDEEP Administration Cefepime HCl 0.5 gm/ 100 mls @ 200 mls/hr 03/09/20 16:00 03/09/20 18:25 Miscellaneous Medication 1 IVPB 100 mls each/ Sodium Chloride 1600 GAGANDEEP Administration Insulin Human Lispro 0 units 03/03/20 02:14 03/09/20 13:51 Humalog 300 Units/3 Ml Vial SC 3 unit .MILD SLIDING SCALE PRN Administration Mild Correctional Scale Metoprolol Succinate 50 mg 03/06/20 21:00 03/08/20 20:56 Metoprolol Succinate Xl 50 Mg Tab PO 50 mg HS GAGANDEEP Administration Saccharomyces Boulardii 250 mg 03/06/20 09:00 03/09/20 08:38 Saccharomyces Boulardii 250 Mg Cap PO 250 mg DAILY GAGANDEEP Administration Sodium Chloride 10 ml 03/03/20 09:00 03/09/20 08:38 Flush - Normal Saline 10 Ml Syringe IVF 10 ml Q12HR GAGANDEEP Administration - Exam General Appearance: NAD, awake alert Eye: PERRL, anicteric sclera ENT: normocephalic atraumatic, no oropharyngeal lesions Neck: supple, symmetric, no JVD Heart: RRR, no murmur, no gallops, no rubs Respiratory - other findings: diminished breath sounds bilaterally Gastrointestinal: soft, non-tender, non-distended, normal bowel sounds Extremities: no cyanosis, no clubbing, no edema Skin: normal turgor, no lesions, no rashes Hosp A/P - Plan CT abdomen: moderate ascites, splenomegaly, acute pancreatitis. No PE. Peripheral opacities throughout lungs This is a 74 year old female who was recently diagnosed with COVID two weeks ago presenting with cough, shortness of breath, diarrhea, weakness, and was recently discharged with COVID pneumonia. Xray on admission showed bilateral pneumonia. She was originally admitted to [facility] and started on broad-spectrum antibiotics, but these were not continued Acute hypoxic respiratory failure possibly secondary to COVID pneumonia vs p ulmonary edema - chest X ray shows persistent bilateral pneumonia. CTA showed no PE but some bilateral opacities and small effusions. - she received convalescent plasma 03/08 - she was on vancomycin and zosyn. Due to worsening leukocytosis to 30, antibiotic switched from zosyn to cefepime 03/09. WBC has improved to 24 - she received some dialysis on 03/08. - hydrocortisone has been weaned to 50 mg IV bid -Continue 4 L nasal cannula. Mental status appears to be better with this -Continue therapeutic Lovenox. - monitor d-dimer, ferritin and CRP Diarrhea - continue lomotil prn. Stool cultures negative Malnutrition -Dietitian was consulted and recommended Nepro 3 times daily Pancreatitis - incidentally noted on CT scan. Lipase elevated, patient denies abdominal pain, nausea, vomiting Anemia - Hb 9.5, will monitor ESRD - patient received dialysis, and will be scheduled for dialysis tomorrow potentially Atrial flutter - resume oral metoprolol 50 mg . Started on anticoagulation Hypocalcemia - corrected calcium 8.6. He received calcium gluconate 03/05 Disposition: pending improvement in oxygenation
--- NOTE | 2020-03-09 19:30 | PRG ---
DATE OF SERVICE: 03/09/2020 SUBJECTIVE: The patient noted with the following vital signs. OBJECTIVE: VITAL SIGNS: Blood pressure , pulse of 58, respiratory rate of 15, and O2 saturations are 96%. HEENT: Unremarkable. CARDIOVASCULAR SYSTEM: First and second heart sounds were heard. RESPIRATORY SYSTEM: Clear to auscultation. DIGESTIVE SYSTEM: Revealed a benign abdomen. EXTREMITIES: No peripheral edema. SKIN: No new gross rash. LYMPHATICS: No peripheral lymphadenopathy. LABORATORY INVESTIGATION: Showed a creatinine of 3.3, BUN of 39, sodium 135. Hemoglobin of 9.1. IMPRESSION: 1. Acute on chronic kidney disease, on hemodialysis. 2. COVID pneumonitis. 3. Anemia. PLAN: 1. The patient's dialysis is on hold today and we will re-evaluate the renal function tomorrow. 2. Further management to be dependent on the clinical course. Job ID: [id number]
[2020-03-09] MEDS: Famotidine/PF 20 mg/2ml Vial SLOW IVP SCH (20:45)
[2020-03-09] MEDS: Enoxaparin Sodium 80 MG/0.8 ML SYRINGE SC SCH (21:49)
[2020-03-10] MEDS: HumaLOG 300 UNITS/3 ML VIAL SC PRN ×2 (05:43→20:38)
[2020-03-10 06:49] LABS: Anion Gap 16 mmol/L (10-20); BUN (Urea Nitrogen) 57 mg/dL (9.8-20.1); Calc. Creatinine Clearance 15 mL/min (70-130); Carbon Dioxide 22 mmol/L (23-31); Chloride 101 mmol/L (98-107); Estimated GFR-MDRD 10; Glucose 278 mg/dL (83-110); Potassium 3.8 mmol/L (3.5-5.1); Sodium 135 mmol/L (136-145)
[2020-03-10 06:57] LABS: Band 10 % (5-11); Lymphocytes 1 % (21-51); MDiff Complete? YES; Mean Corpuscular HGB CONC 31.8 g/dL (32.0-36.0); Mean Corpuscular Hemoglobin 30.9 pg (27.0-31.0); Mean Corpuscular Volume 97.1 fL (78.0-98.0); Mean Platelet Volume 10.7 fL (7.4-10.4); Metamyelocyte 1 % (0-0); Monocytes 4 % (0-10); Neutrophil 84 % (42-75); Platelet Count 65 thou/uL (130-400); Platelet Morphology Comment Appears Decreased; RBC Distribution Width 16.2 % (11.5-14.5); White Blood Cell (WBC) Count 22.9 thou/uL (4.8-10.8)
[2020-03-10] MEDS: Heparin 5,000 UNITS/ML VIAL SC SCH ×2 (07:13→20:32)
--- NOTE | 2020-03-10 08:16 | EKG ---
Test Reason : Blood Pressure : / mmHG Vent. Rate : 134 BPM Atrial Rate : 268 BPM P-R Int : 000 ms QRS Dur : 088 ms QT Int : 382 ms P-R-T Axes : 265 -15 177 degrees QTc Int : 570 ms Atrial flutter with 2:1 A-V conduction Left ventricular hypertrophy with repolarization abnormality Abnormal ECG When compared with ECG of 02-MAR-2020 23:02, (Unconfirmed) Atrial flutter has replaced Sinus rhythm Vent. rate has increased BY [address] now depressed in Inferior leads ST now depressed in Anterolateral leads T wave inversion now evident in Inferior leads T wave inversion now evident in Anterior leads Confirmed by MICHAEL GARCIA (2) on 03/10/2020 8:16:08 AM Referred By: JAG Confirmed By:MICHAEL GARCIA
[2020-03-10] MEDS ORDERED: Heparin 10,000 UNITS/ 10 ML VIAL ONE (08:57)
--- NOTE | 2020-03-10 09:04 | PRG ---
DATE OF SERVICE: 03/10/2020 SUBJECTIVE: The patient is very calm this morning compared to what she has been. OBJECTIVE: VITAL SIGNS: Temperature 97.5, pulse 55, pulse 131/64, and O2 saturation 100% on 5 L. HEENT: Unremarkable. NECK: No adenopathy or JVD. CHEST: Clear anteriorly. CARDIAC: S1 and S2, regular. ABDOMEN: Soft. EXTREMITIES: Trace edema. LABORATORY DATA: Sodium 135, potassium 3.8, BUN 57, creatinine 4.3, and glucose 278. White blood cell count 22.9, hematocrit 28.2, and platelet count 65. ASSESSMENT: 1. COVID-19 pneumonia. 2. Renal failure secondary to COVID-19 infection. PLAN: 1. Given her renal failure, she does not need to be on enoxaparin and subcutaneous heparin. In fact, the enoxaparin is contraindicated in chronic renal failure; therefore, that will be stopped. Subcu heparin is 5000 units subcu b.i.d. that should be more than enough. 2. I will go ahead and wean the steroid dose down further. Job ID: [id number]
[2020-03-10 09:21] LABS: Vancomycin, Random 15.5 ug/mL (See Comment)
[2020-03-10] MEDS: Fluconazole 100 MG TAB PO SCH (14:35)
[2020-03-10] MEDS: Hydrocortisone Sod Succ/PF 100 mg/2 ml Vial IVP SCH ×2 (14:35→20:29)
[2020-03-10] MEDS: Saccharomyces boulardii 250 MG CAP PO SCH (14:35)
[2020-03-10] MEDS: Cefepime 0.5 GM, Admixture Fee 1 EACH in Sodium Chloride 0.9% 100 ML IVPB SCH (14:35)
[2020-03-10] MEDS ORDERED: Lorazepam 0.5 MG TAB PO PRN (16:56)
--- NOTE | 2020-03-10 16:56 | PDOC.EVN ---
Event Note - Event Note Event Note: Patient is on 4- 5 L nasal cannula. The patient was given ativan for agitation overnight. She became more lethargic . She was also bradycardic this morning but now her heart rate has improved to the 50's to 60's. She had two bowel movements today . She ate 60% of her lunch today. She did not eat her breakfast Physical exam: Gen: drowsy, but now more awake she is on 4L nasal cannula CV: sinus bradycardia Lungs: diminished per nursing Abdomen: + BS, soft, nontender Extremities: no edema This is a 74 year old female who was recently diagnosed with COVID two weeks ago presenting with cough, shortness of breath, diarrhea, weakness, and was recently discharged with COVID pneumonia. Xray on admission showed bilateral pneumonia. She was originally admitted to [facility] and started on broad-spectrum antibiotics. Acute hypoxic respiratory failure possibly secondary to COVID pneumonia vs pulmonary edema - chest X ray shows persistent bilateral pneumonia. CTA showed no PE but some bilateral opacities and small effusions. - she received convalescent plasma 03/08. She was on vancomycin and zosyn, switched to vanc and cefepime 03/09 due to worsening leukocytosis. WBC has improved to 22 - hydrocortisone is being weaned to 25 mg bid - continue dialysis prn - lovenox discontinued due to kidney dysfunction Diarrhea - continue lomotil prn. Stool cultures negative Malnutrition -Dietitian was consulted and recommended Nepro 3 times daily Pancreatitis - incidentally noted on CT scan. Lipase elevated, patient denies abdominal pain, nausea, vomiting Anemia - Hb 9.5, will monitor ESRD - patient received dialysis, and will be scheduled for dialysis tomorrow potentially Atrial flutter - resume oral metoprolol 50 mg . Started on anticoagulation Hypocalcemia - corrected calcium 8.6. He received calcium gluconate 03/05
--- NOTE | 2020-03-10 18:52 | PRG ---
DATE OF SERVICE: 03/10/2020 SUBJECTIVE: The patient was seen and examined, still confused. Noted with the following vital signs. OBJECTIVE: VITAL SIGNS: Blood pressure 157/72, pulse of 63, respiratory rate of 19, O2 saturations are 97%. HEENT: Unremarkable. CARDIOVASCULAR SYSTEM: First and second heart sounds were heard. RESPIRATORY SYSTEM: Clear to auscultation. DIGESTIVE SYSTEM: Revealed a benign abdomen. EXTREMITIES: No peripheral edema. SKIN: No new gross rash. LYMPHATICS: No peripheral lymphadenopathy. IMPRESSION: 1. Renal failure, which seems to be progressing toward end stage as the patient seems not to be making much of any urine. 2. COVID pneumonitis. 3. Mental status change. PLAN: 1. The patient is going to be dialyzed today. 2. Given the persistent renal failure, we will make arrangements to change this patient's dialysis access from temporary femoral dialysis to tunneled dialysis to mitigate the risk of infection and also to expedite disposition planning. I will go ahead and consult access surgeon to evaluate this patient for potential dialysis access placement. Job ID: [id number]
[2020-03-10] MEDS: Famotidine/PF 20 mg/2ml Vial SLOW IVP SCH (20:29)
[2020-03-11] MEDS: HumaLOG 300 UNITS/3 ML VIAL SC PRN (05:46)
[2020-03-11 06:38] LABS: Anion Gap 15 mmol/L (10-20); BUN (Urea Nitrogen) 41 mg/dL (9.8-20.1); Calc. Creatinine Clearance 19 mL/min (70-130); Calcium 8.1 mg/dL (7.8-10.44); Carbon Dioxide 24 mmol/L (23-31); Chloride 103 mmol/L (98-107); Estimated GFR-MDRD 14; Glucose 221 mg/dL (83-110); Potassium 3.7 mmol/L (3.5-5.1); Sodium 138 mmol/L (136-145)
[2020-03-11 07:34] LABS: Anisocytosis SLIGHT = 6-15 cells (100X) (0-5/hpf); Band 8 % (5-11); Eosinophils 1 % (0-10); Hemoglobin 9.8 g/dL (12.0-16.0); Hypochromia SLIGHT = 6-15 cells (100X) (0-5/hpf); Lymphocytes 3 % (21-51); MDiff Complete? YES; Mean Corpuscular HGB CONC 31.6 g/dL (32.0-36.0); Mean Corpuscular Hemoglobin 30.6 pg (27.0-31.0); Mean Corpuscular Volume 97.1 fL (78.0-98.0); Mean Platelet Volume 10.4 fL (7.4-10.4); Monocytes 3 % (0-10); Neutrophil 85 % (42-75); Platelet Count 77 thou/uL (130-400); Platelet Morphology Comment Appears Decreased; RBC Distribution Width 16.4 % (11.5-14.5); White Blood Cell (WBC) Count 25.9 thou/uL (4.8-10.8)
[2020-03-11] MEDS ORDERED: CEFAZOLIN 2 GM in Premix Bag 1 BAG IVPB SCH (09:30)
--- NOTE | 2020-03-11 09:33 | PRG ---
DATE OF SERVICE: 03/11/2020 SUBJECTIVE: The patient is somnolent, in no distress. OBJECTIVE: VITAL SIGNS: Temperature 96.8, pulse in the 50s, blood pressure 113/52, O2 saturation 95%. HEENT: Unremarkable. CHEST: Fairly clear anteriorly. CARDIAC: S1 and S2. Regular. ABDOMEN: Soft. EXTREMITIES: Trace edema. LABORATORY DATA: White blood cell count 25.9, hematocrit 31, and platelet count 77. Sodium 138, potassium 3.7, chloride 103, CO2 of 24, BUN 41, creatinine 3.3, and glucose 222. ASSESSMENT: 1. COVID-19 pneumonia. 2. Renal failure. PLAN: The patient continues anticoagulation. She is continuing hemodialysis. She is on minimal dose of steroid. Main issue now is rehabilitation. She also remains on empiric antibiotics, but so far nothing has grown out of cultures. Job ID: [id number]
[2020-03-11] MEDS: Hydrocortisone Sod Succ/PF 100 mg/2 ml Vial IVP SCH ×2 (09:45→21:02)
[2020-03-11 09:52] LABS: Lactic Acid 2.1 mmol/L (0.5-2.2)
[2020-03-11 09:54] LABS: Vancomycin, Random 16.7 ug/mL (See Comment)
--- NOTE | 2020-03-11 10:42 | CON ---
DATE OF CONSULTATION: HISTORY OF PRESENT ILLNESS: Erika Guerrier is a 74-year-old female hospitalized since 03/02/2020 with COVID illness. I saw her on 03/03/2020 and placed a right femoral vein Trialysis catheter for acute on chronic renal failure and now continues dialysis. At the time I saw her, she was noted to have an IV in her right deltopectoral cephalic vein and right antecubital IV which I took out immediately. Trialysis catheter has been placed. Ultrasound vein mapping both arms have been ordered. Plan is to place a cuffed tunneled hemodialysis catheter IJ tomorrow and a central line tomorrow and possibly a left arm fistula or graft tomorrow pending vein mapping. I have discussed with her and questions answered. BUN 41, creatinine 3, GFR 14. The patient has a chronic kidney disease, elevation of her creatinine since 2017 and is felt that by Dr. Snyder that she will need long-term dialysis. MEDICATIONS: In the hospital 1. Cefepime. 2. Hydrocortisone. 3. Insulin. 4. Metoprolol. 5. . Home medications 1. Sertraline. 2. Metoprolol. 3. Cytomel. 4. Levothyroxine. 5. Insulin. 6. Ferrous sulfate. 7. Aspirin. 8. Amlodipine. PAST MEDICAL HISTORY: Hypertension, diabetes mellitus type 2, hyperlipidemia. PAST SURGICAL HISTORY: Cholecystectomy, hysterectomy, prior tubal ligation. She states her ovaries remain in place. The patient has been treated for anxiety in the past. SOCIAL HISTORY: Patient lives with her . Alcohol, none. Drug use, none. Tobacco none. ALLERGIES: SULFA. PHYSICAL EXAMINATION: VITAL SIGNS: Height 5 feet 2 inches, 209 pounds, 38 BMI, temperature 96.8 degrees, blood pressure 113/52. LUNGS: Clear to auscultation. CARDIAC: Regular rate and rhythm. No murmur or gallop. ABDOMEN: Soft, nontender. No hernias. EXTREMITIES: Mild edema. Palpable radial pulses. Groin catheter. IMAGING: Chest x-ray 3 days ago, multifocal opacities, bilateral effusions, slight improvement from admission x-ray. ASSESSMENT/PLAN: 1. Recovering COVID pneumonia. 2. Chronic kidney disease with superimposed acute kidney injury, now endstage renal disease. It is felt that she will need long-term dialysis access. We will plan placement of hemodialysis catheter tomorrow. We will obtain ultrasound vein mapping of both arms today. Plan placement of left or right arm fistula or graft tomorrow pending vein mapping. We will plan placement of a central line due to difficult IV access renal disease. 3. Diabetes mellitus. 4. Morbid obesity. 5. Hypertension. 6. Metabolic syndrome. 7. Anxiety. 8. This hospitalization, right antecubital IV and right cephalic vein deltopectoral placed that I removed immediately in a patient with chronic kidney disease. Await vein mapping. Job ID: [id number]
[2020-03-11] MEDS: Saccharomyces boulardii 250 MG CAP PO SCH (10:54)
[2020-03-11] MEDS: Fluconazole 100 MG TAB PO SCH (10:54)
[2020-03-11] MEDS: Heparin 5,000 UNITS/ML VIAL SC SCH ×2 (10:54→21:04)
--- NOTE | 2020-03-11 17:13 | PDOC.HOSPP ---
- Subjective Encounter Date: 03/11/20 Encounter Time: 10:00 Subjective: The patient states she feels tired. She still has no appetite. She has mild SOB. Mild cough Discussed plan with Celina and in the room for about 40 minutes. Explained that permanent dialysis catheter needed, family asked whether this would be local or general. Dr Clemons mentioned local with sedation Discussed that if she improves, then she would likely need to go to rehab Diarrhea - resolved. SHe reports no bowel movement since last night - Objective Vital Signs & Weight: Vital Signs (12 hours) Temp Pulse Ox 03/11/20 12:26 98.8 F 03/11/20 08:00 96 03/11/20 07:16 96.8 F L Weight Admit Weight 175 lb 11.2 oz Weight 209 lb 7.026 oz Most Recent Monitor Data Heart Rate from ECG 72 NIBP 117/46 NIBP BP-Mean 69 Respiration from ECG 29 SpO2 92 I&O: 03/10/20 03/11/20 03/12/20 06:59 06:59 06:59 Intake Total 760 480 Output Total 0 0 Balance 760 480 Result Diagrams: 03/11/20 05:40 03/11/20 05:40 Additional Labs: Accuchecks 03/11/20 03/10/20 05:09 20:37 POC Glucose 200 H 210 H Hospitalist ROS - Review of Systems Constitutional: denies: fever, chills - Medication Medications: Active Medications Generic Name Dose Route Start Last Admin Trade Name Freq PRN Reason Stop Dose Admin Acetaminophen 650 mg 03/03/20 01:31 03/07/20 08:22 Acetaminophen 325 Mg Tab PO 650 mg Q4H PRN Administration Headache/Fever/Mild Pain (1-3) Diphenoxylate HCl/Atropine 1 tab 03/06/20 14:54 03/09/20 13:50 Diphenoxylate Hcl/Atropine Tablet PO 1 tab Q6H PRN Administration Diarrhea/Loose Stools Famotidine 20 mg 03/03/20 21:00 03/10/20 20:29 Famotidine/Pf 20 Mg/2ml Vial SLOW IVP 20 mg QPM GAGANDEEP Administration Fluconazole 100 mg 03/08/20 09:00 03/11/20 10:54 Fluconazole 100 Mg Tab PO 100 mg DAILY GAGANDEEP Administration Heparin Sodium (Porcine) 5,000 units 03/03/20 09:00 03/11/20 10:54 Heparin 5,000 Units/Ml Vial SC Not Given BID GAGANDEEP Hydrocortisone Sodium Succinate 25 mg 03/10/20 09:00 03/11/20 09:45 Hydrocortisone Sod Succ/Pf 100 Mg/2 Ml Vial IVP 03/15/20 09:01 25 mg BID GAGANDEEP Administration Cefepime HCl 0.5 gm/ 100 mls @ 200 mls/hr 03/09/20 16:00 03/10/20 14:35 Miscellaneous Medication 1 IVPB 100 mls each/ Sodium Chloride 1600 GAGANDEEP Administration Insulin Human Lispro 0 units 03/03/20 02:14 03/11/20 05:46 Humalog 300 Units/3 Ml Vial SC 2 unit .MILD SLIDING SCALE PRN Administration Mild Correctional Scale Metoprolol Succinate 50 mg 03/06/20 21:00 03/10/20 20:32 Metoprolol Succinate Xl 50 Mg Tab PO 50 mg HS GAGANDEEP Administration Saccharomyces Boulardii 250 mg 03/06/20 09:00 03/11/20 10:54 Saccharomyces Boulardii 250 Mg Cap PO 250 mg DAILY GAGANDEEP Administration Sodium Chloride 10 ml 03/03/20 09:00 03/11/20 10:54 Flush - Normal Saline 10 Ml Syringe IVF 10 ml Q12HR GAGANDEEP Administration - Exam General Appearance: NAD, awake alert Eye: PERRL, anicteric sclera ENT: normocephalic atraumatic, no oropharyngeal lesions Neck: no JVD Heart: RRR, no murmur, no gallops, no rubs Respiratory - other findings: diminished breath sounds Gastrointestinal - other findings: abdomen tense, mildly distended Extremities: no cyanosis, no clubbing, 1+ LE edema Skin: normal turgor, no lesions, no rashes Neurological: cranial nerve grossly intact, normal sensation to touch, no focal deficits, no new deficit Musculoskeletal: normal tone, normal strength, no muscle wasting Psychiatric: A&O x 3 Hosp A/P - Plan CT abdomen: moderate ascites, splenomegaly, acute pancreatitis. No PE. Peripheral opacities throughout lungs This is a 74 year old female who was recently diagnosed with COVID two weeks ago presenting with cough, shortness of breath, diarrhea, weakness, and was recently discharged with COVID pneumonia. Xray on admission showed bilateral pneumonia. She was originally admitted to [facility] and started on broad-spectrum antibiotics, but these were not continued Acute hypoxic respiratory failure possibly secondary to COVID pneumonia vs pulmonary edema - chest X ray shows persistent bilateral pneumonia. CTA showed no PE but some bilateral opacities and small effusions. - she received convalescent plasma 03/08 - she was on vancomycin and zosyn. Due to worsening leukocytosis to 30, antibiotic switched from zosyn to cefepime 03/09. WBC had improved to 22, then increased to 25. Hydrocortisone weaned to 25 mg IV bid - she is on 3L nasal cannula. Continue dialysis as toleated LALA on CKD, likely ESRD - per nephrology, patient headed towards ESRD. Tunneled catheter and central line plan to be placed by general surgery Diarrhea - continue lomotil prn. Stool cultures negative Malnutrition -Dietitian was consulted and recommended Nepro 3 times daily Pancreatitis - incidentally noted on CT scan. Lipase elevated, patient denies abdominal p ain, nausea, vomiting Anemia - Hb 9.5, will monitor Atrial flutter - resume oral metoprolol 50 mg . Started on anticoagulation Hypocalcemia - corrected calcium 8.6. He received calcium gluconate 03/05 Disposition: pending improvement in oxygenation
[2020-03-11] MEDS: Cefepime 0.5 GM, Admixture Fee 1 EACH in Sodium Chloride 0.9% 100 ML IVPB SCH (17:44)
--- NOTE | 2020-03-11 18:27 | ULT ---
BILATERAL UPPER EXTREMITY VENOUS DOPPLER ULTRASOUND FOR VEIN MAPPING/DIALYSIS ACCESS: 06/11/19 HISTORY: End-stage renal disease. FINDINGS: RIGHT UPPER EXTREMITY BRACHIAL ARTERY: 4.9 mm RADIAL ARTERY: 1.6 mm ULNAR ARTERY: 3.8 mm CEPHALIC VEIN Proximal Arm: 3 mm Mid Arm: 2.4 mm Distal Arm: 2.2 mm Antecubital Fossa: 1.5 mm Proximal Forearm: 1.6 mm Mid Forearm: 1.2 mm Distal Forearm: 1.7 mm BASILIC VEIN Proximal Arm: 5.5 mm Mid Arm: 2.9 mm Distal Arm: 3 mm Antecubital Fossa: 2.9 mm Proximal Forearm: 1.2 mm Mid Forearm: 1.6 mm Distal Forearm: 1.2 mm LEFT UPPER EXTREMITY BRACHIAL ARTERY: 3.9 mm RADIAL ARTERY: 2.5 mm ULNAR ARTERY: 2.9 mm CEPHALIC VEIN Proximal Arm: 2.8 mm Mid Arm: 3 mm Distal Arm: 3.2 mm Antecubital Fossa: 4.1 mm Proximal Forearm: 0.8 mm Mid Forearm: 0.7 mm Distal Forearm: 1.7 mm BASILIC VEIN Proximal Arm: 3.7 mm Mid Arm: 3.4 mm Distal Arm: 3 mm Antecubital Fossa: 3 mm Proximal Forearm: 1.4 mm Mid Forearm: 1.7 mm Distal Forearm: 1.4 mm POS: [facility]
--- NOTE | 2020-03-11 19:18 | PRG ---
DATE OF SERVICE: 03/11/2020 SUBJECTIVE: The patient was seen and examined, noted with the following vital signs. OBJECTIVE: VITAL SIGNS: Blood pressure 117/46, pulse 72, respiratory rate of 22, O2 saturations of 93%. HEENT: Unremarkable. CARDIOVASCULAR SYSTEM: First and second heart sounds were heard. RESPIRATORY SYSTEM: Clear to auscultation. DIGESTIVE SYSTEM: Revealed a benign abdomen. EXTREMITIES: No peripheral edema. SKIN: No new gross rash. LYMPHATICS: No peripheral lymphadenopathy. LABORATORY INVESTIGATION: Showed a white count of 25,900, hemoglobin of 9.8. Chemistry showed a creatinine of 3.3, BUN of 41. IMPRESSION: 1. Acute kidney injury possible end-stage renal disease. 2. COVID pneumonitis. PLAN: 1. Given the prolonged recovery of this renal function, we will switch out the patient temporary dialysis catheter for a more durable tunneled dialysis catheter in preparation for possible discharge. 2. Continue erythropoiesis stimulating agents. 3. Renally dose all medications. 4. business analytics manager consultation to coordinate outpatient dialysis placement. Job ID: [id number]
[2020-03-11] MEDS: Famotidine/PF 20 mg/2ml Vial SLOW IVP SCH (21:02)
[2020-03-11] MEDS: guaiFENesin ER 600 MG TAB PO SCH (21:04)
[2020-03-12 04:01] LABS: Anion Gap 20 mmol/L (10-20); BUN (Urea Nitrogen) 58 mg/dL (9.8-20.1); Calc. Creatinine Clearance 17 mL/min (70-130); Calcium 7.6 mg/dL (7.8-10.44); Carbon Dioxide 20 mmol/L (23-31); Chloride 103 mmol/L (98-107); Estimated GFR-MDRD 10; Glucose 250 mg/dL (83-110); Potassium 4.6 mmol/L (3.5-5.1); Sodium 138 mmol/L (136-145)
[2020-03-12 04:02] LABS: Vancomycin, Random 16.6 ug/mL (See Comment)
[2020-03-12 04:05] LABS: Band 14 % (5-11); Hemoglobin 9.4 g/dL (12.0-16.0); Hypochromia SLIGHT = 6-15 cells (100X) (0-5/hpf); Lymphocytes 6 % (21-51); MDiff Complete? YES; Mean Corpuscular HGB CONC 32.4 g/dL (32.0-36.0); Mean Corpuscular Hemoglobin 30.9 pg (27.0-31.0); Mean Corpuscular Volume 95.5 fL (78.0-98.0); Mean Platelet Volume 10.4 fL (7.4-10.4); Monocytes 3 % (0-10); Neutrophil 77 % (42-75); Platelet Count 82 thou/uL (130-400); Platelet Morphology Comment Appears Decreased; RBC Distribution Width 16.7 % (11.5-14.5); Red Blood Cell (RBC) Count 3.02 mill/uL (4.20-5.40); White Blood Cell (WBC) Count 29.7 thou/uL (4.8-10.8)
--- NOTE | 2020-03-12 09:09 | PRG ---
DATE OF SERVICE: 03/12/2020 SUBJECTIVE: Ms. Guerrier has been taken out of isolation as she is now day 21 of COVID. She is actually doing reasonably well. She is bothered by some secretions and has a difficult time coughing. OBJECTIVE: VITAL SIGNS: Temperature 96.7, pulse 70, blood pressure 124/47. 24-hour intake 480, output not quantitated. HEENT: Unremarkable. NECK: No JVD. LUNGS: Coarse rhonchi. CARDIAC: S1 and S2, regular. ABDOMEN: Soft. EXTREMITIES: No edema. LABORATORY DATA: White blood cell count 29.7, hematocrit 28.9, and platelet count 82. Sodium 138, potassium 4.6, chloride 103, CO2 of 20, BUN 58, creatinine 4.2, glucose 250. ASSESSMENT: COVID-19 infection, mainly manifested by heavy secretions and acute renal failure. PLAN: 1. Honestly at this point, I would recommend discontinuing the vancomycin as nothing has grown. The cefepime can be stopped after 7 full days of treatment. 2. I will add nebs with EzPAP to see if that helps. 3. Continue dialysis. 4. Continue low-dose steroids. Job ID: [id number]
[2020-03-12] MEDS: Fluconazole 100 MG TAB PO SCH (10:02)
[2020-03-12] MEDS: guaiFENesin ER 600 MG TAB PO SCH ×2 (10:02→21:15)
[2020-03-12] MEDS: Saccharomyces boulardii 250 MG CAP PO SCH (10:03)
[2020-03-12] MEDS: Heparin 5,000 UNITS/ML VIAL SC SCH ×2 (10:03→21:15)
[2020-03-12] MEDS ORDERED: Albumin 25% 25 GM/100 ML BOT IVPB SCH (10:15)
[2020-03-12] MEDS ORDERED: Heparin 10,000 UNITS/ 10 ML VIAL ONE ×2 (10:18→13:53)
[2020-03-12] MEDS ORDERED: Sodium Chloride 0.9% 30 ML ONE (10:19)
[2020-03-12] MEDS ORDERED: Lidocaine 2% PF 5 ML VIAL ONE (10:19)
[2020-03-12] MEDS ORDERED: Ketamine 50 MG/ML (10ML VIAL) ONE (10:23)
[2020-03-12] MEDS ORDERED: Acetaminophen 500 MG TAB PO PRN (10:28)
[2020-03-12] MEDS ORDERED: traMADol HCl 50 MG TAB PO PRN (10:28)
[2020-03-12] MEDS ORDERED: CEFAZOLIN 2 GM in Premix Bag 1 BAG IVPB SCH (10:30)
[2020-03-12 10:36] LABS: ALT (SGPT) 35 U/L (8-55); AST (SGOT) 56 U/L (5-34); Albumin 1.9 g/dL (3.4-4.8); Alkaline Phosphatase 73 U/L (40-110); Bilirubin, Direct 0.5 mg/dL (0.1-0.3); Bilirubin, Total 0.8 mg/dL (0.2-1.2); Protein, Total 5.3 g/dL (6.0-8.3)
--- NOTE | 2020-03-12 12:04 | OP ---
DATE OF PROCEDURE: 03/12/2020 PREOPERATIVE DIAGNOSES: Recovering COVID illness; end-stage renal disease; metabolic syndrome; morbid obesity; diabetes; hypertension; not medically fit for left arm fistula, but we will plan that in the future. POSTOPERATIVE DIAGNOSES: Recovering COVID illness; end-stage renal disease; metabolic syndrome; morbid obesity; diabetes; hypertension; not medically fit for left arm fistula, but we will plan that in the future. PROCEDURES PERFORMED: Right internal jugular cuffed tunneled hemodialysis catheter and left internal jugular triple-lumen catheter. ANESTHESIA: Sedation, local 0.5% Marcaine with epinephrine 30 mL mixed with 2% Xylocaine. Fluoroscopy and ultrasound used. DESCRIPTION OF PROCEDURE: The patient was taken to the operating room, where under intravenous sedation, neck and chest were prepared with ChloraPrep and draped in routine fashion. Local anesthetic mixture was infiltrated into the skin and subcutaneous tissue about the operative site. Using ultrasound guidance, the right and left internal jugular veins were cannulated with trocar catheter. J-wire was threaded. Trocar catheter was removed. The skin site was enlarged sharply at the J-wire entry site. A stab incision was made over the right chest. Using Seldinger technique, a triple-lumen catheter was placed on the left and secured with 3-0 nylon suture. Each port aspirated blood and flushed with saline solution. Sterile dressing was applied. On the right, the pre-curved [employer] cuffed tunneled hemodialysis catheter tunneled between 2 incisions, placed the fabric cuff beneath the skin exit site securing the catheter with 3-0 nylon suture. Sterile dressing was applied. Smaller and medium size dilators were placed over the J-wire into the internal jugular vein and removed. Dilator and Peel-Away sheath were placed over the J-wire into superior vena cava. Dilator and J-wire were removed. Catheter was placed with Peel-Away sheath. Peel-Away sheath was removed. Platysma was approximated with 4-0 Monocryl and skin with subdermal 4-0 Monocryl. Each port aspirated blood and flushed with saline solution and then heparinized saline solution, 1000 units of heparin per mL, indicating volume of the port. Fluoroscopic images revealed good line placement. The patient tolerated the procedure well. Job ID: [id number]
--- NOTE | 2020-03-12 12:08 | RAD ---
XR Chest 1 View Portable History: Central line placement Comparison: Radiograph March 08, 2020 Findings: Left IJ central venous catheter tip poorly seen due to numerous overlying leads although li dread at the mid SVC. Right IJ dialysis catheter tip projects of the right atrium. Small effusions. Bibasilar atelectasis. Mild volume overload. Impression: No pneumothorax post central line placement.
[2020-03-12] MEDS: Hydrocortisone Sod Succ/PF 100 mg/2 ml Vial IVP SCH ×2 (15:17→21:04)
--- NOTE | 2020-03-12 17:11 | PDOC.HOSPP ---
- Subjective Encounter Date: 03/12/20 Encounter Time: 15:00 Subjective: F/u: COVID infection The patient states she feels tired. She is not sure if she feels better or not. She still has poor oral intake. She is diffusely edematous. Dialysis is happening currently and they are trying to take off fluid. IV fluids were started to prevent her blood pressure from dropping. Per renal dialysis rn, they were only able to remove about 300 mL of fluid on Sunday and possibly inadequate amount on Sunday Family is agreeable to NG tube feeding after if the patient is still not eating - Objective Vital Signs & Weight: Vital Signs (12 hours) Temp Pulse Resp Pulse Ox 03/12/20 15:50 97.5 F L 03/12/20 14:09 77 17 93 L 03/12/20 07:47 94 L 03/12/20 07:22 96.7 F L Weight Admit Weight 175 lb 11.2 oz Weight 210 lb 1.6 oz Most Recent Monitor Data Heart Rate from ECG 74 NIBP 113/36 NIBP BP-Mean 61 Respiration from ECG 21 SpO2 93 I&O: 03/11/20 03/12/20 03/13/20 06:59 06:59 06:59 Intake Total 480 240 Output Total 0 0 Balance 480 240 Result Diagrams: 03/12/20 03:30 03/12/20 03:30 Hospitalist ROS - Review of Systems Constitutional: denies: fever, chills - Medication Medications: Active Medications Generic Name Dose Route Start Last Admin Trade Name Freq PRN Reason Stop Dose Admin Albumin Human 50 gm 03/12/20 10:15 03/12/20 13:58 Albumin 25% 25 Gm/100 Ml Bot IVPB 03/12/20 20:00 50 gm WILLCALL GAGANDEEP Administration Albuterol/Ipratropium 3 ml 03/12/20 13:00 03/12/20 14:09 Ipratropium/Albuterol Sulfate 3 Ml Neb EZPAP 3 ml [id number] GAGANDEEP Administration Diphenoxylate HCl/Atropine 1 tab 03/06/20 14:54 03/09/20 13:50 Diphenoxylate Hcl/Atropine Tablet PO 1 tab Q6H PRN Administration Diarrhea/Loose Stools Famotidine 20 mg 03/03/20 21:00 03/11/20 21:02 Famotidine/Pf 20 Mg/2ml Vial SLOW IVP 20 mg QPM GAGANDEEP Administration Fluconazole 100 mg 03/08/20 09:00 03/12/20 10:02 Fluconazole 100 Mg Tab PO Not Given DAILY GAGANDEEP Guaifenesin 600 mg 03/11/20 21:00 03/12/20 10:02 Guaifenesin Er 600 Mg Tab PO Not Given Q12HR GAGANDEEP Heparin Sodium (Porcine) 5,000 units 03/03/20 09:00 03/12/20 10:03 Heparin 5,000 Units/Ml Vial SC Not Given BID GAGANDEEP Hydrocortisone Sodium Succinate 25 mg 03/10/20 09:00 03/12/20 15:17 Hydrocortisone Sod Succ/Pf 100 Mg/2 Ml Vial IVP 03/15/20 09:01 Not Given BID GAGANDEEP Cefepime HCl 0.5 gm/ 100 mls @ 200 mls/hr 03/09/20 16:00 03/11/20 17:44 Miscellaneous Medication 1 IVPB 100 mls each/ Sodium Chloride 1600 GAGANDEEP Administration Insulin Human Lispro 0 units 03/03/20 02:14 03/11/20 05:46 Humalog 300 Units/3 Ml Vial SC 2 unit .MILD SLIDING SCALE PRN Administration Mild Correctional Scale Saccharomyces Boulardii 250 mg 03/06/20 09:00 03/12/20 10:03 Saccharomyces Boulardii 250 Mg Cap PO Not Given DAILY GAGANDEEP Sodium Chloride 10 ml 03/03/20 09:00 03/12/20 15:18 Flush - Normal Saline 10 Ml Syringe IVF Not Given Q12HR GAGANDEEP - Exam General Appearance: NAD, awake alert Eye: PERRL, anicteric sclera ENT: no oropharyngeal lesions Neck: no JVD Heart: RRR, no murmur, no gallops, no rubs Respiratory - other findings: crackles bilaterally Gastrointestinal: soft, non-tender, non-distended Extremities: 2+ LE edema Extremities - other findings: anasarca Skin: normal turgor, no lesions, no rashes Neurological: cranial nerve grossly intact, normal sensation to touch, no weakness Musculoskeletal: normal tone, normal strength, no muscle wasting Hosp A/P - Plan CT abdomen: moderate ascites, splenomegaly, acute pancreatitis. No PE. Peripheral opacities throughout lungs This is a 74 year old female who was recently diagnosed with COVID two weeks ago presenting with cough, shortness of breath, diarrhea, weakness, and was recently discharged with COVID pneumonia. Xray on admission showed bilateral pneumonia. She was originally admitted to [facility] and started on broad-spectrum antibiotics, but these were not continued Acute hypoxic respiratory failure possibly secondary to COVID pneumonia vs pulmonary edema - chest X ray shows persistent bilateral pneumonia. CTA showed no PE but some bilateral opacities and small effusions. - she received convalescent plasma 03/08 - she was on vancomycin and zosyn. Due to worsening leukocytosis to 30, a ntibiotic switched from zosyn to cefepime 03/09. WBC initially improved, now up to 29 again. Possibly reactive from fluid overload - steroids have been discontinued .She is on 3L nasal cannula. She received inadequate dialysis Sunday and Sunday. Hopefully can remove more fluid off today - she is on 3L nasal cannula LALA on CKD, likely ESRD - per nephrology, patient headed towards ESRD. Tunneled catheter and central line placed today Diarrhea - continue lomotil prn. Stool cultures negative Malnutrition -Dietitian was consulted and recommended Nepro 3 times daily. Plan to start NG feeding possibly after dialysis with tube feedings if patient can tolerate it Pancreatitis - incidentally noted on CT scan. Lipase elevated, patient denies abdominal pain, nausea, vomiting Anemia - Hb 9.5, will monitor Atrial flutter - resume oral metoprolol 50 mg . Started on anticoagulation Hypocalcemia - corrected calcium 8.6. He received calcium gluconate 03/05 Disposition: pending improvement in oxygenation
--- NOTE | 2020-03-12 17:53 | PRG ---
DATE OF SERVICE: 03/12/2020 SUBJECTIVE: The patient was noted with the following. OBJECTIVE: VITAL SIGNS: Blood pressure is somewhat labile, especially during dialysis, 108/49 to 100/47; pulse of 71; respiratory rate of 23; saturation of 90%. HEENT: Unremarkable. CARDIOVASCULAR SYSTEM: First and second heart sounds were heard. RESPIRATORY SYSTEM: Clear to auscultation. DIGESTIVE SYSTEM: Revealed a benign abdomen. EXTREMITIES: No peripheral edema. SKIN: No new gross rash. LYMPHATICS: No peripheral lymphadenopathy. IMPRESSION: 1. Acute on chronic kidney disease coordinating to end-stage renal disease. 2. COVID pneumonitis. PLAN: 1. The patient did receive long-term dialysis access today. The patient is being dialyzed today in accordance with Sunday, Sunday, and Sunday schedule with some labile hemodynamics. 2. Outpatient dialysis placement work in progress. rehab therapy manager is coordinating. 3. Further management to be dependent on the clinical course. Job ID: [id number]
--- NOTE | 2020-03-12 19:19 | RAD ---
KUB INDICATION: NG tube placement COMPARISON: None FINDINGS: Bowel gas: Bowel gas pattern is nonspecific. Gastric catheter is coiled in the region of the gastric antrum with the tip projecting back to the level of the gastric body. Lung bases: Subsegmental volume loss in the left lung base. Right lung base is not well seen. Additional findings: No suspicious calcification. Surgical clips are present within the right upper q uadrant of the abdomen. Osseous structures: There are several bone IMPRESSION: 1. Gastric catheter as above.
[2020-03-12] MEDS: Famotidine/PF 20 mg/2ml Vial SLOW IVP SCH (21:04)
[2020-03-12] MEDS: Cefepime 0.5 GM, Admixture Fee 1 EACH in Sodium Chloride 0.9% 100 ML IVPB SCH (21:05)
[2020-03-13 05:14] LABS: Anion Gap 23 mmol/L (10-20); BUN (Urea Nitrogen) 45 mg/dL (9.8-20.1); Calc. Creatinine Clearance 21 mL/min (70-130); Calcium 8.6 mg/dL (7.8-10.44); Carbon Dioxide 21 mmol/L (23-31); Chloride 101 mmol/L (98-107); Estimated GFR-MDRD 13; Glucose 226 mg/dL (83-110); Potassium 4.2 mmol/L (3.5-5.1); Sodium 141 mmol/L (136-145)
[2020-03-13] MEDS: Cefepime 0.5 GM, Admixture Fee 1 EACH in Sodium Chloride 0.9% 100 ML IVPB SCH ×2 (05:15→22:59)
[2020-03-13 05:27] LABS: Band 2 % (5-11); Hemoglobin 8.7 g/dL (12.0-16.0); Lymphocytes 1 % (21-51); MDiff Complete? YES; Mean Corpuscular HGB CONC 31.8 g/dL (32.0-36.0); Mean Corpuscular Hemoglobin 30.6 pg (27.0-31.0); Mean Corpuscular Volume 96.4 fL (78.0-98.0); Mean Platelet Volume 10.1 fL (7.4-10.4); Monocytes 3 % (0-10); Neutrophil 94 % (42-75); Platelet Count 93 thou/uL (130-400); Platelet Morphology Comment Appears Decreased; RBC Morphology Normal; Red Blood Cell (RBC) Count 2.83 mill/uL (4.20-5.40); White Blood Cell (WBC) Count 30.4 thou/uL (4.8-10.8)
[2020-03-13] MEDS: HumaLOG 300 UNITS/3 ML VIAL SC PRN ×3 (06:28→19:29)
[2020-03-13] MEDS: guaiFENesin ER 600 MG TAB PO SCH ×2 (09:18→21:39)
[2020-03-13] MEDS: Heparin 5,000 UNITS/ML VIAL SC SCH ×2 (09:18→21:40)
[2020-03-13] MEDS: Hydrocortisone Sod Succ/PF 100 mg/2 ml Vial IVP SCH ×2 (09:18→22:59)
[2020-03-13] MEDS: Fluconazole 100 MG TAB PO SCH (09:18)
[2020-03-13] MEDS: Saccharomyces boulardii 250 MG CAP PO SCH (09:19)
--- NOTE | 2020-03-13 09:34 | PDOC.HOSPP ---
- Subjective Encounter Date: 03/13/20 Encounter Time: 11:00 Subjective: Patient states she feels bad. No other specific complaints. at bedside and states that she has been talking like she is on the phone with people, but that she has been a little altered on and off since she got very sick. - Objective Vital Signs & Weight: Vital Signs (12 hours) Temp Pulse Resp Pulse Ox 03/13/20 07:44 95 03/13/20 07:19 97.8 F 03/13/20 07:04 92 24 H 93 L 03/13/20 03:45 97.6 F 03/13/20 01:08 95 03/13/20 00:24 94 32 H 95 03/12/20 23:43 97.8 F Weight Admit Weight 175 lb 11.2 oz Weight 211 lb 10.3 oz Most Recent Monitor Data Heart Rate from ECG 88 NIBP 130/51 NIBP BP-Mean 77 Respiration from ECG 19 SpO2 94 I&O: 03/12/20 03/13/20 03/14/20 06:59 06:59 05:59 Intake Total 240 240 Output Total 0 750 Balance 240 -510 Result Diagrams: 03/13/20 04:20 03/13/20 04:20 Additional Labs: Accuchecks 03/13/20 03/12/20 03/12/20 06:10 20:56 17:02 POC Glucose 241 H 173 H 139 H 03/12/20 03/11/20 03/11/20 06:56 22:57 18:36 POC Glucose 219 H 217 H 215 H 03/11/20 12:15 POC Glucose 209 H Hospitalist ROS - Review of Systems ROS unobtainable: due to mental status - Medication Medications: Active Medications Generic Name Dose Route Start Last Admin Trade Name Freq PRN Reason Stop Dose Admin Albuterol/Ipratropium 3 ml 03/12/20 13:00 03/13/20 07:04 Ipratropium/Albuterol Sulfate 3 Ml Neb EZPAP 3 ml [id number] GAGANDEEP Administration Diphenoxylate HCl/Atropine 1 tab 03/06/20 14:54 03/09/20 13:50 Diphenoxylate Hcl/Atropine Tablet PO 1 tab Q6H PRN Administration Diarrhea/Loose Stools Famotidine 20 mg 03/03/20 21:00 03/12/20 21:04 Famotidine/Pf 20 Mg/2ml Vial SLOW IVP 20 mg QPM GAGANDEEP Administration Fluconazole 100 mg 03/08/20 09:00 03/13/20 09:18 Fluconazole 100 Mg Tab PO 100 mg DAILY GAGANDEPE Administration Guaifenesin 600 mg 03/11/20 21:00 03/13/20 09:18 Guaifenesin Er 600 Mg Tab PO 600 mg Q12HR GAGANDEEP Administration Heparin Sodium (Porcine) 5,000 units 03/03/20 09:00 03/13/20 09:18 Heparin 5,000 Units/Ml Vial SC 5,000 units BID GAGANDEEP Administration Hydrocortisone Sodium Succinate 25 mg 03/10/20 09:00 03/13/20 09:18 Hydrocortisone Sod Succ/Pf 100 Mg/2 Ml Vial IVP 03/15/20 09:01 25 mg BID GAGANDEEP Administration Cefepime HCl 0.5 gm/ 100 mls @ 200 mls/hr 03/12/20 20:00 03/12/20 21:05 Miscellaneous Medication 1 IVPB 100 mls each/ Sodium Chloride 2000 GAGANDEEP Administration Insulin Human Lispro 0 units 03/03/20 02:14 03/13/20 06:28 Humalog 300 Units/3 Ml Vial SC 3 unit .MILD SLIDING SCALE PRN Administration Mild Correctional Scale Saccharomyces Boulardii 250 mg 03/06/20 09:00 03/13/20 09:19 Saccharomyces Boulardii 250 Mg Cap PO 250 mg DAILY GAGANDEEP Administration Sodium Chloride 10 ml 03/03/20 09:00 03/13/20 09:19 Flush - Normal Saline 10 Ml Syringe IVF 10 ml Q12HR GAGANDEEP Administration - Exam General Appearance: ill appearing General - other findings: Eyes closed, but talks when stimulated ENT: moist mucosa Heart: RRR, no murmur, no gallops, no rubs Respiratory: CTAB, no wheezes, no rales, no ronchi Gastrointestinal: soft, non-tender, non-distended, normal bowel sounds Extremities: 1+ LE edema Psychiatric: not oriented Hosp A/P - Plan CT abdomen: moderate ascites, splenomegaly, acute pancreatitis. No PE. Periph eral opacities throughout lungs This is a 74 year old female who was recently diagnosed with COVID two weeks ago presenting with cough, shortness of breath, diarrhea, weakness, and was recently discharged with COVID pneumonia. Xray on admission showed bilateral pneumonia. She was originally admitted to [facility] and started on broad-spectrum antibiotics, but these were not continued Acute hypoxic respiratory failure possibly secondary to COVID pneumonia vs pulmonary edema - chest X ray shows persistent bilateral pneumonia. CTA showed no PE but some bilateral opacities and small effusions. - she received convalescent plasma 03/08 - she was on vancomycin and zosyn. Due to worsening leukocytosis to 30, antibiotic switched from zosyn to cefepime 03/09. WBC initially improved, now up to 29 again. Possibly reactive from fluid overload. Vanc discontinued. Day 09/17 Cefepime then can d/c that as well. - steroids have been discontinued .She is on 3L nasal cannula. She received inadequate dialysis Sunday and Sunday. Hopefully can remove more fluid off today - she is on 3L nasal cannula Leukocytosis - uncertain etiology at this point, cultures negative LALA on CKD, likely ESRD - per nephrology, patient headed towards ESRD. Tunneled catheter and central line placed and getting dialysis, arranging outpatient dialysis Diarrhea - continue lomotil prn. Stool cultures negative Malnutrition -Dietitian was consulted and recommended Nepro 3 times daily. Plan to start NG feeding possibly after dialysis with tube feedings if patient can tolerate it Pancreatitis - incidentally noted on CT scan. Lipase elevated, patient denies abdominal pain, nausea, vomiting Anemia - Hb 9.5, will monitor Atrial flutter - resume oral metoprolol 50 mg . Started on anticoagulation Hypocalcemia - corrected calcium 8.6. He received calcium gluconate 03/05 Disposition: pending improvement in oxygenation
--- NOTE | 2020-03-13 12:13 | PRG ---
DATE OF SERVICE: 03/13/2020 SUBJECTIVE: Ms. Guerrier is still requiring supplemental oxygen, although today 5 L. She had dialysis yesterday which she tolerated relatively well. EzPAP was initiated with a goal of improving pulmonary toilet and cough, but she did not do very well with it. OBJECTIVE: VITAL SIGNS: Blood pressure 130/51, heart rate 92, she is afebrile, currently on 4 L nasal cannula. She is awake and alert. HEENT: Shows no adenopathy. LUNGS: Show bronchial breath sounds without wheezing. HEART: Regular rate and rhythm. ABDOMEN: Soft. There is no organomegaly. EXTREMITIES: She has 1+ edema. LABORATORY DATA: White count 29,700, hemoglobin 8.7, hematocrit 27.2, and platelet count is 93,000. She has 94 segs and 2 bands. Electrolytes notable for sodium 141, potassium 4.2, chloride 101, CO2 is 21, BUN 45, creatinine 3.45. IMPRESSION: 1. COVID pneumonia. She has completed a full course of therapy. She remains on low-flow oxygen, but otherwise seems to be very slowly recovering. 2. Renal failure, on maintenance hemodialysis. PLAN: I agree that there is no indication for ongoing vancomycin and we could discontinue that. If there is clinical deterioration, repeat cultures and re-initiation of therapy would be appropriate. Job ID: [id number]
[2020-03-13 15:48] VITALS: BP 159/59
[2020-03-13] MEDS: Famotidine/PF 20 mg/2ml Vial SLOW IVP SCH (21:40)
--- NOTE | 2020-03-13 23:50 | RAD ---
Chest AP view INDICATION: Reduced lung sounds COMPARISON: March 12, 2020 FINDINGS: Lungs: Bilateral airspace disease persists. Cardiac silhouette: Moderate cardiomegaly is stable. Right IJ dialysis catheter and left IJ central venous catheter is stable. Pulmonary vasculature: There is mild pulmonary vascular congestion. Pleural spaces: There are worsening small bilateral pleural effusions Upper abdomen: No abnormality seen. Osseous structures: No acute osseous abnormality. Additional findings: Gastric catheter is now present and projects in the region of the gastric body. IMPRESSION: 1. Stable bilateral pneumonia. 2. Moderate cardiomegaly with mild pulmonary vascular congestion and slightly increased small bilater al pleural effusions. 3. Interval placement of a gastric catheter. Stable right IJ dialysis catheter and left IJ central ve nous catheter.
[2020-03-14] MEDS: HumaLOG 300 UNITS/3 ML VIAL SC PRN ×2 (00:33→07:50)
[2020-03-14 00:40] LABS: Actual Bicarbonate (HCO3a) 22.8 mEq/L (22-28); Base Excess (BEa) -1.9 mEq/L (-2.0 to +3.0); CO2 Tension 38.3 mmHg (35.0-45.0); Calcium, Ionized (arterial) 1.13 mmol/L (1.12-1.30); Carboxyhemoglobin (COHb) 0.1 gm% (0.0-3.0); Potassium - ABG Lab 4.25 mmol/L (3.70-5.30); pH, Arterial 7.39 (7.35-7.45)
[2020-03-14 00:41] LABS: O2 Tension (PaO2), arterial 55.5 mmHg (> 70.0); Puncture Site RRA
[2020-03-14 00:44] LABS: ALV-art Gradient 153.305 mmHg (0-20)
[2020-03-14 01:00] LABS: BUN (Urea Nitrogen) 65 mg/dL (9.8-20.1); Calc. Creatinine Clearance 16 mL/min (70-130); Calcium 8.7 mg/dL (7.8-10.44); Carbon Dioxide 22 mmol/L (23-31); Chloride 100 mmol/L (98-107); Estimated GFR-MDRD 10; Glucose 371 mg/dL (83-110); Magnesium 2.4 mg/dL (1.6-2.6); Potassium 4.2 mmol/L (3.5-5.1); Sodium 140 mmol/L (136-145)
[2020-03-14 01:02] LABS: Anion Gap 22 mmol/L (10-20)
[2020-03-14 01:04] LABS: Band 9 % (5-11); Hemoglobin 9.4 g/dL (12.0-16.0); Hypochromia SLIGHT = 6-15 cells (100X) (0-5/hpf); Lymphocytes 7 % (21-51); MDiff Complete? YES; Mean Corpuscular HGB CONC 31.8 g/dL (32.0-36.0); Mean Corpuscular Hemoglobin 30.5 pg (27.0-31.0); Mean Corpuscular Volume 95.9 fL (78.0-98.0); Mean Platelet Volume 10.4 fL (7.4-10.4); Metamyelocyte 1 % (0-0); Monocytes 9 % (0-10); Neutrophil 74 % (42-75); Platelet Count 97 thou/uL (130-400); Platelet Morphology Comment Appears Decreased; RBC Distribution Width 17.2 % (11.5-14.5); Red Blood Cell (RBC) Count 3.07 mill/uL (4.20-5.40); White Blood Cell (WBC) Count 31.7 thou/uL (4.8-10.8)
[2020-03-14 01:12] LABS: Lactic Acid 2.6 mmol/L (0.5-2.2)
[2020-03-14 01:59] LABS: ALT (SGPT) 41 U/L (8-55); AST (SGOT) 67 U/L (5-34); Albumin 2.7 g/dL (3.4-4.8); Alkaline Phosphatase 82 U/L (40-110); Bilirubin, Direct 0.7 mg/dL (0.1-0.3); Bilirubin, Total 1.1 mg/dL (0.2-1.2)
[2020-03-14] MEDS: Saccharomyces boulardii 250 MG CAP PO SCH (08:07)
[2020-03-14] MEDS: Fluconazole 100 MG TAB PO SCH (08:07)
[2020-03-14] MEDS: guaiFENesin ER 600 MG TAB PO SCH ×2 (08:07→22:23)
--- NOTE | 2020-03-14 08:55 | CT ---
PRELIMINARY REPORT/[facility]/AFTER HOURS PROCEDURE CT ABDOMEN AND PELVIS WITHOUT INTRAVENOUS CONTRAST: CLINICAL HISTORY: Abdominal distention; eval for possible SBO. TECHNIQUE: Axial computed tomography images of the abdomen and pelvis without intravenous contrast. CONTRAST: None. COMPARISON: CT abdomen and pelvis with and without contrast from 02/28/2017 at 10:48 a.m. CDT. FINDINGS: LUNG BASES: No basilar airspace consolidation or pleural effusion. LIVER: The liver demonstrates cirrhotic morphology, new since the last examination. GALLBLADDER AND BILE DUCTS: The patient has had a cholecystectomy. PANCREAS: Unremarkable. SPLEEN: There is splenomegaly. ADRENAL GLANDS: Unremarkable. KIDNEYS, URETERS, AND BLADDER: Unremarkable. No hydronephrosis or nephrolithiasis. No ureteral or cain dder calculi. STOMACH AND BOWEL: There is a diffuse wall thickening of the colon, may represent colitis. No eviden ce of obstruction. The NG tube is seen in the body of the stomach appeared. APPENDIX: No CT evidence for appendicitis. PERITONEUM: There is a large amount of ascites, new since the last examination. LYMPH NODES: No lymphadenopathy. REPRODUCTIVE: Unremarkable as visualized. VASCULATURE: No aortic aneurysm. ABDOMINAL WALL AND SOFT TISSUES: Unremarkable. BONES: No fracture or suspicious osseous abnormality. MISCELLANEOUS: There is a diffuse body wall edema. IMPRESSION: 1. There is a large amount of ascites, new since the last examination. 2. The liver demonstrates cirrhotic morphology, new since the last examination. 3. The patient has had a cholecystectomy. 4. There is splenomegaly. 5. There is a diffuse wall thickening of the colon, may represent colitis. 6. There is a diffuse body wall edema. ELECTRONICALLY SIGNED BY: Mayco Casanova MD Mar 14, 2020 3:44:51 AM POULTRYMAN This report is intended for review by the ordering physician only, in accordance of law. If you recei ve this report in error, please call [facility] at [phone]. FINAL REPORT EMERGENT AFTER HOURS CT ABDOMEN AND PELVIS: IMPRESSION: I agree with the impression given in the preliminary interpretation. Additional findings include: There is an ovoid focus of increased density, similar to the density of oral contrast material, withi n the right lower quadrant. Although this is difficult to localize intraluminally with certainty, the lack of associated gas within this collection or elsewhere within the abdomen, in terms of free air, likely reflects that this contrast is within a patulous loop of small bowel. Exophytic hyperdense cyst arising from the inferior pole of the left kidney appears stable with respe ct to 12/23/2016. There is bibasilar consolidation and small bilateral pleural fluid. There is opacification of right l ower lobe bronchi, compatible with aspiration. CODE QA POS: EDUARDO
--- NOTE | 2020-03-14 09:23 | PRG ---
DATE OF SERVICE: 03/14/2020 SUBJECTIVE: Ms. Guerrier is not significantly different in the past 24 hours. She is recovering from placement of a tunneled temporary dialysis catheter. She remains on modest oxygen supplementation, currently with Ventiface mask at 50%. She has not had any cough or sputum, she has had no nausea or vomiting. OBJECTIVE: VITAL SIGNS: Blood pressure 104/34, afebrile. Heart rate is in the 80s. Saturation 96%. NECK: There is no adenopathy. LUNGS: Show rhonchi, but no wheezing. HEART: Regular rate and rhythm. ABDOMEN: Soft. There is no organomegaly. Bowel sounds are normal. LABORATORY DATA: White count [id number], slowly trending upward over the past three or four days. She has 74 segs and 9 bands. Hemoglobin 9.4 with hematocrit 29.4. Blood gas today includes pH 7.39, CO2 of 38, pO2 of 55, and bicarbonate 23. Chemistry panel includes sodium 140, potassium 4.2, chloride 100, CO2 is 22, BUN 65, creatinine 4.5. Lactic acid remains mildly elevated at 2.6. Glucose is over 200 to as much as 350. IMPRESSION: 1. Bilateral pneumonia consistent with COVID. Unfortunately, she remains on moderate oxygen supplements, today Ventiface mask at 50%. 2. Renal failure, receiving maintenance hemodialysis. 3. Persistent and worsening leukocytosis. There is no obvious infectious source. This is most likely related to steroids. She is on empiric broad antibiotics. PLAN: We will continue current therapies. Medically, she is not on traditional high-flow nasal cannula and could go to the medical floor if bed availability allow it. Job ID: [id number]
[2020-03-14] MEDS: Heparin 5,000 UNITS/ML VIAL SC SCH ×2 (11:04→22:22)
--- NOTE | 2020-03-14 11:14 | PDOC.HOSPP ---
- Subjective Encounter Date: 03/14/20 Encounter Time: 11:00 Subjective: f/u ESRD on HD with persistent anasarca/ascites and AMS receiving TF's via NGT. Remains weak and lethargic with plans on HD today. - Objective Vital Signs & Weight: Vital Signs (12 hours) Temp Pulse Resp Pulse Ox 03/14/20 07:19 97.4 F L 03/14/20 07:02 90 26 H 96 03/14/20 03:45 97.3 F L 03/14/20 01:19 SHERIFF SERGEANT 97 03/14/20 00:35 97.0 F L 03/14/20 00:14 105 H 35 H 95 Weight Admit Weight 175 lb 11.2 oz Weight 211 lb 10.3 oz Most Recent Monitor Data Heart Rate from ECG 90 NIBP 145/61 NIBP BP-Mean 89 Respiration from ECG 23 SpO2 96 I&O: 03/13/20 03/14/20 03/15/20 07:59 06:59 06:59 Intake Total 100 Output Total 600 Balance -500 Result Diagrams: 03/14/20 01:17 SHERIFF SERGEANT 03/14/20 01:17 SHERIFF SERGEANT Additional Labs: Accuchecks 03/14/20 03/14/20 03/13/20 07:04 00:13 18:04 POC Glucose 348 H 328 H 295 H 03/13/20 12:09 POC Glucose 269 H Laboratory Tests 03/07/20 03/11/20 03/11/20 07:15 05:40 09:07 WBC 25.9 H Hgb 9.8 L Plt Count 77 L Lactic Acid 2.1 Magnesium Ammonia SARS-CoV-2 (PCR) DETECTED A* 03/12/20 03/13/20 03/14/20 03:30 04:20 01:17 SHERIFF SERGEANT WBC 29.7 H 30.4 H Hgb 9.4 L 8.7 L Plt Count 82 L 93 L Lactic Acid Magnesium 2.4 Ammonia SARS-CoV-2 (PCR) 03/14/20 03/14/20 01:17 SHERIFF SERGEANT 01:35 SHERIFF SERGEANT WBC Hgb Plt Count Lactic Acid 2.6 H Magnesium Ammonia 34 SARS-CoV-2 (PCR) Radiology Reviewed by me: Yes (CT abd/pel - anasarca, ascites, cirrhotic changes of liver, NGT in place) EKG Reviewed by me: Yes (Tele - SR) Hospitalist ROS - Medication Medications: Active Medications Generic Name Dose Route Start Last Admin Trade Name Lamonteq PRN Reason Stop Dose Admin Albuterol/Ipratropium 3 ml 03/12/20 13:00 03/14/20 07:02 Ipratropium/Albuterol Sulfate 3 Ml Neb EZPAP 3 ml [id number] GAGANDEEP Administration Diphenoxylate HCl/Atropine 1 tab 03/06/20 14:54 03/09/20 13:50 Diphenoxylate Hcl/Atropine Tablet PO 1 tab Q6H PRN Administration Diarrhea/Loose Stools Famotidine 20 mg 03/03/20 21:00 03/13/20 21:40 Famotidine/Pf 20 Mg/2ml Vial SLOW IVP Not Given QPM GAGANDEEP Fluconazole 100 mg 03/08/20 09:00 03/14/20 08:07 Fluconazole 100 Mg Tab PO Not Given DAILY GAGANDEEP Guaifenesin 600 mg 03/11/20 21:00 03/14/20 08:07 Guaifenesin Er 600 Mg Tab PO Not Given Q12HR [facility] Heparin Sodium (Porcine) 5,000 units 03/03/20 09:00 03/14/20 11:04 Heparin 5,000 Units/Ml Vial SC Not Given BID GAGANDEEP Hydrocortisone Sodium Succinate 25 mg 03/10/20 09:00 03/13/20 22:59 Hydrocortisone Sod Succ/Pf 100 Mg/2 Ml Vial IVP 03/15/20 09:01 25 mg BID GAGANDEEP Administration Cefepime HCl 0.5 gm/ 100 mls @ 200 mls/hr 03/12/20 20:00 03/13/20 22:59 Miscellaneous Medication 1 IVPB 100 mls each/ Sodium Chloride 2000 GAGANDEEP Administration Insulin Human Lispro 0 units 03/03/20 02:14 03/14/20 07:50 Humalog 300 Units/3 Ml Vial SC 5 unit .MILD SLIDING SCALE PRN Administration Mild Correctional Scale Saccharomyces Boulardii 250 mg 03/06/20 09:00 03/14/20 08:07 Saccharomyces Boulardii 250 Mg Cap PO Not Given DAILY GAGANDEEP Sodium Chloride 10 ml 03/03/20 09:00 03/13/20 23:00 Flush - Normal Saline 10 Ml Syringe IVF 10 ml Q12HR GAGANDEEP Administration - Exam General Appearance: ill appearing General - other findings: somnolent Eye: PERRL, anicteric sclera ENT: normocephalic atraumatic, no oropharyngeal lesions ENT - other findings: NGT in place Neck: supple, symmetric, no JVD, no thyromegaly, no lymphadenopathy Heart: RRR, no gallops, no rubs, normal peripheral pulses Heart - other findings: S1, S2 Respiratory: no wheezes, rhonchi Respiratory - other findings: diminished with basilar crackles Gastrointestinal: non-tender, normal bowel sounds, no guarding, distended Gastrointestinal - other findings: obese Extremities: no cyanosis, 2+ LE edema Skin: normal turgor Neurological: no new deficit Musculoskeletal: generalized weakness Psychiatric: flat affect, somnolent, lethargic Hosp A/P (1) Acute respiratory failure with hypoxia Code(s): J96.01 - ACUTE RESPIRATORY FAILURE WITH HYPOXIA Status: Acute Plan: Continue O2 supplementation with VM, titrate to clinical response (2) Pneumonia due to COVID-19 virus Code(s): U07.1 - COVID-19; J12.89 - OTHER VIRAL PNEUMONIA Status: Acute Plan: s/p convalescent plasma, off isolation precautions, continue pulmonary support, O2 (3) Acute metabolic encephalopathy Code(s): G93.41 - METABOLIC ENCEPHALOPATHY Status: Acute Plan: Persistent and likely multifactorial given co-morbid status, HD planned today for filtration and toxin removal (4) Acute worsening of stage 3 chronic kidney disease Code(s): N18.30 - CHRONIC KIDNEY DISEASE, STAGE 3 UNSPECIFIED Status: Acute Plan: HD planned today per Renal service (5) Leukocytosis Code(s): D72.829 - ELEVATED WHITE BLOOD CELL COUNT, UNSPECIFIED Status: Acute Plan: Suspect due to Hydrocortisone, serial monitoring - Plan plan discussed w/ family, continue antibiotics, PT/OT, social worker delinquency prevention, speech therapy, respiratory therapy, DVT proph w/SCDs Continue supportive mgmt Continue Cefepime HD per Renal service today Continue NGT Consider Palliative care Limit sedation/pain meds AM lab: BMP, CBC
--- NOTE | 2020-03-14 11:44 | PRG ---
DATE OF SERVICE: 03/14/2020 SUBJECTIVE: The patient is seen and examined today, very somnolent. OBJECTIVE: VITAL SIGNS: Blood pressure 124/56 to 145/91, pulse of 91, respiratory rate of 22, O2 sats of 96%. HEENT: Unremarkable. CARDIOVASCULAR SYSTEM: First and second heart sounds were heard. RESPIRATORY SYSTEM: Revealed a loud transmitted sound. DIGESTIVE SYSTEM: Revealed a distended abdomen, somewhat tense. EXTREMITIES: Showed 2 to 3+ bilateral edema. NEUROLOGIC: The patient is very somnolent. No lateralizing sign. LABORATORY INVESTIGATION: Showed a creatinine of 4.48, BUN of 65, blood sugar of . ABG showed a pH of 7.39 with PO2 of 55. IMPRESSION: 1. Acute on chronic kidney disease, culminating into end-stage renal disease. 2. Toxic metabolic encephalopathy. 3. trending towards anasarca. 4. COVID pneumonitis resulting in respiratory failure. PLAN: 1. We will try and dialyze this patient today with ultrafiltration as tolerated by hemodynamics and we will lean towards a modified daily dialysis until the patient's mental status and fluid status improves, and the ammonia level is within normal range. 2. Renally dose all medications avoiding potentially nephrotoxic agents. 3. Further management to be dependent on the clinical course. Job ID: [id number]
[2020-03-14] MEDS: Hydrocortisone Sod Succ/PF 100 mg/2 ml Vial IVP SCH ×2 (13:35→22:22)
[2020-03-14] MEDS ORDERED: Heparin 10,000 UNITS/ 10 ML VIAL ONE (13:55)
[2020-03-14] MEDS ORDERED: Albumin 25% 100 ML ONE (14:59)
[2020-03-14] MEDS ORDERED: Albumin 25% 25 GM/100 ML BOT IVPB SCH ×2 (16:15→17:15)
[2020-03-14] MEDS: Famotidine/PF 20 mg/2ml Vial SLOW IVP SCH (22:22)
[2020-03-14] MEDS: Cefepime 0.5 GM, Admixture Fee 1 EACH in Sodium Chloride 0.9% 100 ML IVPB SCH (22:22)
[2020-03-15] MEDS ORDERED: Metoprolol Tartrate 5 MG/5 ML VIAL IVP SCH ×2 (00:45→04:30)
[2020-03-15] MEDS: HumaLOG 300 UNITS/3 ML VIAL SC PRN ×3 (00:59→21:00)
[2020-03-15 04:00] LABS: Band 9 % (5-11); Hemoglobin 8.9 g/dL (12.0-16.0); Lymphocytes 4 % (21-51); MDiff Complete? YES; Mean Corpuscular HGB CONC 31.6 g/dL (32.0-36.0); Mean Corpuscular Hemoglobin 30.8 pg (27.0-31.0); Mean Corpuscular Volume 97.4 fL (78.0-98.0); Mean Platelet Volume 10.2 fL (7.4-10.4); Monocytes 2 % (0-10); Neutrophil 85 % (42-75); Platelet Count 60 thou/uL (130-400); Platelet Morphology Comment Appears Decreased; RBC Distribution Width 17.9 % (11.5-14.5); Red Blood Cell (RBC) Count 2.89 mill/uL (4.20-5.40); White Blood Cell (WBC) Count 27.3 thou/uL (4.8-10.8)
[2020-03-15 04:27] LABS: Anion Gap 18 mmol/L (10-20); BUN (Urea Nitrogen) 54 mg/dL (9.8-20.1); Calc. Creatinine Clearance 19 mL/min (70-130); Calcium 8.7 mg/dL (7.8-10.44); Carbon Dioxide 28 mmol/L (23-31); Chloride 100 mmol/L (98-107); Estimated GFR-MDRD 11; Glucose 269 mg/dL (83-110); Potassium 4.1 mmol/L (3.5-5.1); Sodium 142 mmol/L (136-145)
[2020-03-15] MEDS ORDERED: Sodium Chloride 0.9% 250 ML 250 ML IVPB SCH (04:30)
[2020-03-15] MEDS: Hydrocortisone Sod Succ/PF 100 mg/2 ml Vial IVP SCH (08:08)
[2020-03-15] MEDS ORDERED: EPOETIN ALFA-EPBX (ESRD) 2,000 UNIT/ML VIAL IVP SCH (09:00)
[2020-03-15] MEDS ORDERED: EPOETIN ALFA-EPBX (ESRD) 3,000 UNIT/ML VIAL IVP SCH (09:00)
[2020-03-15] MEDS: Fluconazole 100 MG TAB PO SCH (10:24)
[2020-03-15] MEDS: guaiFENesin ER 600 MG TAB PO SCH ×2 (10:25→20:59)
[2020-03-15] MEDS: Heparin 5,000 UNITS/ML VIAL SC SCH ×2 (10:27→20:59)
[2020-03-15] MEDS: Saccharomyces boulardii 250 MG CAP PO SCH (10:27)
[2020-03-15] MEDS ORDERED: Epoetin (ESRD) 20,000 UNITS/ML IVP SCH (11:15)
[2020-03-15] MEDS ORDERED: Heparin 10,000 UNITS/ 10 ML VIAL ONE (11:42)
[2020-03-15 12:11] VITALS: BMI 38.7
--- NOTE | 2020-03-15 12:18 | PRG ---
DATE OF SERVICE: 03/15/2020 SUBJECTIVE: Erika Guerrier is a 74-year-old female, remains in the MICU, being dialyzed. OBJECTIVE: VITAL SIGNS: Temperature 97, blood pressure respiratory rate 18. GENERAL: She is very encephalopathic, I spoke to the nurse. CHEST: Reveals no wheezing, no crackles. CARDIAC: Normal S1, S2. No gallops. ABDOMEN: No masses. LABORATORY DATA: White count 27,000, big left shift. Creatinine 3, BUN 54. She has an NG tube because of some ileus she had yesterday. CT of abdomen was performed, large amount of ascites. She has a new history of cirrhosis. IMPRESSION AND PLAN: Pitts positive pneumonia, ascites, chronic renal failure, severe deconditioning, and encephalopathy. I think, her overall prognosis remains poor. She is 74 years old. I wonder whether it is worth doing a paracentesis pressure. All her steroids were discontinued as of today. Continue neb treatments, supportive care. Prognosis is grave. Palliative Care is going to talk to the family regarding ongoing issues. Job ID: [id number]
--- NOTE | 2020-03-15 15:50 | CT ---
CT BRAIN NONCONTRAST: DATE: 03/15/2020 HISTORY: 74-year-old female with mental status change: Altered mental status FINDINGS: There is no evidence of acute intra-axial or extra-axial hemorrhage. There is no midline shift or any other mass effect. There is no extra-axial fluid collection. There is no evidence of obstructive hydrocephalus. Calvarium is intact. There are low attenuation areas in the white matter. These are no nspecific, but in a patient of this age, they are probably chronic ischemic white matter changes due to microvascular atherosclerosis. IMPRESSION: 1) No acute intracranial findings. 2) chronic ischemic white matter changes, not unusual for age 74 years.
--- NOTE | 2020-03-15 16:41 | PDOC.HOSPP ---
- Subjective Encounter Date: 03/15/20 Encounter Time: 16:40 Subjective: f/u for ESRD receiving HD/AMS with minimal improvement per who reports pt mainly sleeping most of the day. - Objective Vital Signs & Weight: Vital Signs (12 hours) Temp Pulse Resp 03/15/20 13:43 76 18 03/15/20 11:29 96.4 F L 03/15/20 07:00 96.4 F L 03/15/20 06:50 80 23 H Weight Admit Weight 175 lb 11.2 oz Weight 211 lb 10.3 oz Most Recent Monitor Data Heart Rate from ECG 80 NIBP 129/40 NIBP BP-Mean 69 Respiration from ECG 16 SpO2 95 I&O: 03/14/20 03/15/20 03/16/20 06:59 06:59 06:59 Intake Total 480 Output Total 1850 Balance -1370 Result Diagrams: 03/15/20 03:35 03/15/20 03:35 Additional Labs: Accuchecks 03/15/20 03/15/20 03/14/20 12:13 05:18 23:55 POC Glucose 160 H 234 H 259 H 03/14/20 03/12/20 18:10 10:05 POC Glucose 239 H 235 H Laboratory Tests 03/07/20 03/11/20 03/11/20 07:15 05:40 09:07 WBC 25.9 H Hgb 9.8 L Plt Count 77 L Lactic Acid 2.1 Magnesium Ammonia SARS-CoV-2 (PCR) DETECTED A* 03/12/20 03/13/20 03/14/20 03:30 04:20 01:17 CANDLES POURER WBC 29.7 H 30.4 H Hgb 9.4 L 8.7 L Plt Count 82 L 93 L Lactic Acid Magnesium 2.4 Ammonia SARS-CoV-2 (PCR) 03/14/20 03/14/20 01:17 CANDLES POURER 01:35 CANDLES POURER WBC Hgb Plt Count Lactic Acid 2.6 H Magnesium Ammonia 34 SARS-CoV-2 (PCR) Microbiology 03/14/20 02:28 Venous blood - Right Hand Blood Culture - Preliminary Specimen has been received and culture in progress . No Growth to date. 03/14/20 02:23 Central Line - Left Internal Jugular Vein Blood Culture - Preliminary Specimen has been received and culture in progress. No Growth to date. Radiology Reviewed by me: Yes (CT brain - no acute process, chronic isch changes bilat) EKG Reviewed by me: Yes (Tele - SR) Hospitalist ROS - Medication Medications: Active Medications Generic Name Dose Route Start Last Admin Trade Name Freq PRN Reason Stop Dose Admin Albumin Human 25 gm 03/14/20 17:15 03/15/20 08:08 Albumin 25% 25 Gm/100 Ml Bot IVPB 03/15/20 17:16 25 gm ASDIR GAGANDEEP Administration Albuterol/Ipratropium 3 ml 03/12/20 13:00 03/15/20 13:43 Ipratropium/Albuterol Sulfate 3 Ml Neb EZPAP 3 ml [id number] GAGANDEEP Administration Diphenoxylate HCl/Atropine 1 tab 03/06/20 14:54 03/09/20 13:50 Diphenoxylate Hcl/Atropine Tablet PO 1 tab Q6H PRN Administration Diarrhea/Loose Stools Famotidine 20 mg 03/03/20 21:00 03/14/20 22:22 Famotidine/Pf 20 Mg/2ml Vial SLOW IVP 20 mg QPM GAGANDEEP Administration Fluconazole 100 mg 03/08/20 09:00 03/15/20 10:24 Fluconazole 100 Mg Tab PO Not Given DAILY GAGANDEEP Guaifenesin 600 mg 03/11/20 21:00 03/15/20 10:25 Guaifenesin Er 600 Mg Tab PO Not Given Q12HR GAGANDEEP Heparin Sodium (Porcine) 5,000 units 03/03/20 09:00 03/15/20 10:27 Heparin 5,000 Units/Ml Vial SC Not Given BID GAGANDEEP Cefepime HCl 0.5 gm/ 100 mls @ 200 mls/hr 03/12/20 20:00 03/14/20 22:22 Miscellaneous Medication 1 IVPB 100 mls each/ Sodium Chloride 2000 GAGANDEEP Administration Insulin Human Lispro 0 units 03/03/20 02:14 03/15/20 05:19 Humalog 300 Units/3 Ml Vial SC 3 unit .MILD SLIDING SCALE PRN Administration Mild Correctional Scale Saccharomyces Boulardii 250 mg 03/06/20 09:00 03/15/20 10:27 Saccharomyces Boulardii 250 Mg Cap PO Not Given DAILY GAGANDEEP Sodium Chloride 10 ml 03/03/20 09:00 03/15/20 10:27 Flush - Normal Saline 10 Ml Syringe IVF 10 ml Q12HR GAGANDEEP Administration - Exam General Appearance: ill appearing General - other findings: somnolent Eye: PERRL, anicteric sclera ENT: normocephalic atraumatic, no oropharyngeal lesions Neck: supple, symmetric, no JVD, no thyromegaly, no lymphadenopathy Heart: RRR, no gallops, no rubs, normal peripheral pulses Heart - other findings: S1, S2 Respiratory: tachypneic Respiratory - other findings: diminished in bases, occ rhonchi Gastrointestinal: non-tender, no palpable masses, no guarding, distended Extremities: no cyanosis, 2+ LE edema Skin: normal turgor Musculoskeletal: generalized weakness Psychiatric: flat affect, somnolent, lethargic Hosp A/P (1) Acute respiratory failure with hypoxia Code(s): J96.01 - ACUTE RESPIRATORY FAILURE WITH HYPOXIA Status: Acute Plan: Continue O2 support, volume removal with HD (2) Pneumonia due to COVID-19 virus Code(s): U07.1 - COVID-19; J12.89 - OTHER VIRAL PNEUMONIA Status: Acute (3) Acute metabolic encephalopathy Code(s): G93.41 - METABOLIC ENCEPHALOPATHY Status: Acute Plan: Persistent, multifactorial with likely uremic influence, supportive mgmt (4) Acute worsening of stage 3 chronic kidney disease Code(s): N18.30 - CHRONIC KIDNEY DISEASE, STAGE 3 UNSPECIFIED Status: Acute Plan: HD per Renal service (5) Leukocytosis Code(s): D72.829 - ELEVATED WHITE BLOOD CELL COUNT, UNSPECIFIED Status: Acute Plan: Secondary to steroids, serial monitoring - Plan plan discussed w/ family, continue antibiotics, PT/OT, nursing home social worker, respiratory therapy Consults: Palliative Care Continue supportive mgmt Continue Cefepime HD per Renal service today Continue NGT Consider Palliative care Limit sedation/pain meds Heparin 5,000u BID AM lab: BMP, CBC
--- NOTE | 2020-03-15 16:43 | PRG ---
DATE OF SERVICE: 03/15/2020 SUBJECTIVE: The patient is seen and examined. Still very somnolent, noted with the following vital signs. OBJECTIVE: VITAL SIGNS: Blood pressure 143/41, pulse 84, respiratory rate of 21, O2 saturation of 97%. HEENT: Unremarkable except wide open. CARDIOVASCULAR: First and second heart sounds. RESPIRATORY: Revealed lot of transmitted sounds. DIGESTIVE SYSTEM: Revealed an obese abdomen without ascites. EXTREMITIES: Showed peripheral edema. IMPRESSION: 1. Acute on chronic kidney disease culminating to end-stage renal disease. 2. Generalize fluid overload/anasarca. 3. Cardiopulmonary failure in the context of COVID pneumonitis. 4. Labile hemodynamics. PLAN: 1. The patient to be dialyzed today with ultrafiltration as tolerated by hemodynamics. 2. Optimize ultrafiltration. We will infuse albumin prior and during dialysis of this patient. However, remains impossible despite these maneuvers, we will plan on starting this patient on pressors, plus or minus mannitol to mobilize due for dialysis. 3. Renally dose all medications. 4. Avoid heparinization of this patient during dialysis given the thrombocytopenia in this patient. 5. Consider CAT scan of the brain given the mental status change in this patient that could not be explained entirely by renal failure. Job ID: [id number]
[2020-03-15] MEDS: Metoclopramide HCl 10 MG/2 ML VIAL IVP SCH (20:58)
[2020-03-15] MEDS: Famotidine/PF 20 mg/2ml Vial SLOW IVP SCH (20:59)
[2020-03-15] MEDS: Cefepime 0.5 GM, Admixture Fee 1 EACH in Sodium Chloride 0.9% 100 ML IVPB SCH (20:59)
--- NOTE | 2020-03-15 21:04 | EKG ---
Test Reason : Blood Pressure : / mmHG Vent. Rate : 142 BPM Atrial Rate : 153 BPM P-R Int : 000 ms QRS Dur : 102 ms QT Int : 320 ms P-R-T Axes : 000 -18 159 degrees QTc Int : 492 ms Atrial fibrillation with rapid ventricular response Voltage criteria for left ventricular hypertrophy Abnormal ECG When compared with ECG of 14-MAR-2020 01:05, (Unconfirmed) Atrial fibrillation has replaced Sinus rhythm Confirmed by Anshul FLOYD ([id number]) on 03/15/2020 9:04:11 PM Referred By: TOAN Confirmed By:Anshul FLOYD
[2020-03-15 21:48] LABS: Actual Bicarbonate (HCO3a) 28.9 mEq/L (22-28); Base Excess (BEa) 0.5 mEq/L (-2.0 to +3.0); Calcium, Ionized (arterial) 1.19 mmol/L (1.12-1.30); Carboxyhemoglobin (COHb) 0.5 gm% (0.0-3.0); Potassium - ABG Lab 3.85 mmol/L (3.70-5.30)
[2020-03-15 21:53] LABS: CO2 Tension 70.5 mmHg (35.0-45.0); pH, Arterial 7.23 (7.35-7.45)
[2020-03-15 21:54] LABS: ALV-art Gradient 573.475 mmHg (0-20); O2 Tension (PaO2), arterial 51.4 mmHg (> 70.0)
[2020-03-16] MEDS: Metoclopramide HCl 10 MG/2 ML VIAL IVP SCH ×3 (01:56→12:16)
[2020-03-16 04:08] LABS: Band 12 % (5-11); Hypochromia SLIGHT = 6-15 cells (100X) (0-5/hpf); Lymphocytes 4 % (21-51); MDiff Complete? YES; Mean Corpuscular HGB CONC 30.9 g/dL (32.0-36.0); Mean Corpuscular Hemoglobin 30.6 pg (27.0-31.0); Mean Corpuscular Volume 98.9 fL (78.0-98.0); Mean Platelet Volume 11.3 fL (7.4-10.4); Monocytes 3 % (0-10); Neutrophil 81 % (42-75); Platelet Count 50 thou/uL (130-400); Platelet Morphology Comment Appears Decreased; RBC Distribution Width 17.8 % (11.5-14.5); Red Blood Cell (RBC) Count 2.62 mill/uL (4.20-5.40); White Blood Cell (WBC) Count 23.6 thou/uL (4.8-10.8)
[2020-03-16 04:10] LABS: Anion Gap 20 mmol/L (10-20); BUN (Urea Nitrogen) 37 mg/dL (9.8-20.1); Calc. Creatinine Clearance 26 mL/min (70-130); Calcium 9.1 mg/dL (7.8-10.44); Carbon Dioxide 27 mmol/L (23-31); Chloride 99 mmol/L (98-107); Estimated GFR-MDRD 16; Glucose 228 mg/dL (83-110); Potassium 3.9 mmol/L (3.5-5.1); Sodium 142 mmol/L (136-145)
[2020-03-16] MEDS: HumaLOG 300 UNITS/3 ML VIAL SC PRN (05:27)
[2020-03-16] MEDS ORDERED: Albumin 25% 100 ML ONE (07:17)
[2020-03-16] MEDS ORDERED: Albumin 25% 25 GM/100 ML BOT IVPB ONE ×2 (08:00→10:00)
--- NOTE | 2020-03-16 11:13 | PRG ---
DATE OF SERVICE: 03/16/2020 SUBJECTIVE: Erika Guerrier is a 74-year-old female, remains on the BiPAP, being dialyzed this morning, appears to be much more encephalopathic. OBJECTIVE: VITAL SIGNS: Temperature 96, blood pressure 126/97, saturations are 95% on a BiPAP, respiratory rate 18. CHEST: Extensive rhonchi. CARDIAC: Normal S1 and S2. No gallops. ABDOMEN: No masses. LABORATORY DATA: pO2 was 51 last night, pCO2 of70, pH 7.23. Respiratory failure, respiratory acidosis. White count 23,000, H and H 8 and 26, platelet count is 50. Creatinine 2, BUN 37. ASSESSMENT AND PLAN: Multiorgan failure, respiratory failure, thrombocytopenia, hypoventilation. I agree with comfort care, DNR. Job ID: [id number]
[2020-03-16] MEDS: Fluconazole 100 MG TAB PO SCH (12:03)
[2020-03-16] MEDS: Saccharomyces boulardii 250 MG CAP PO SCH (12:04)
[2020-03-16] MEDS: guaiFENesin ER 600 MG TAB PO SCH (12:04)
[2020-03-16] MEDS: Heparin 5,000 UNITS/ML VIAL SC SCH (12:04)
[2020-03-16] MEDS ORDERED: Digoxin 0.5 MG/2 ML AMP ONE (13:09)
[2020-03-16] MEDS ORDERED: Digoxin 0.5 MG/2 ML AMP SLOW IVP SCH (13:30)
[2020-03-16] MEDS ORDERED: Heparin 10,000 UNITS/ 10 ML VIAL ONE (13:31)
--- NOTE | 2020-03-16 13:40 | PDOC.HOSPP ---
- Subjective Encounter Date: 03/16/20 Encounter Time: 13:30 Subjective: f/u for LALA receiving serial HD with approx 1.8L removed today. Nursing reports A-fib RVR. Was placed on BiPAP NIMV overnight and remains on same today. - Objective Vital Signs & Weight: Vital Signs (12 hours) Temp Pulse Resp Pulse Ox 03/16/20 13:22 137 H 03/16/20 13:12 137 H 03/16/20 12:41 135 H 28 H 87 L 03/16/20 10:36 75 03/16/20 08:01 84 03/16/20 08:00 95 03/16/20 07:13 96.8 F L 03/16/20 04:00 97.2 F L 03/16/20 02:38 75 Weight Admit Weight 175 lb 11.2 oz Weight 211 lb 10.3 oz Most Recent Monitor Data Heart Rate from ECG 87 NIBP 133/52 NIBP BP-Mean 79 Respiration from ECG 29 SpO2 93 I&O: 03/15/20 03/16/20 03/17/20 06:59 06:59 06:59 Intake Total 480 150 Output Total 1850 700 Balance -1370 -550 Result Diagrams: 03/16/20 03:30 03/16/20 03:30 Additional Labs: Accuchecks 03/16/20 03/15/20 00:04 20:57 POC Glucose 197 H 213 H Microbiology 03/14/20 02:28 Venous blood - Right Hand Blood Culture - Preliminary Specimen has been received and culture in progress. No Growth to date. 03/14/20 02:23 Central Line - Left Internal Jugular Vein Blood Culture - Preliminary Specimen has been received and culture in progress. No Growth to date. Laboratory Tests 03/07/20 03/11/20 03/11/20 07:15 05:40 09:07 WBC 25.9 H Hgb 9.8 L Plt Count 77 L Lactic Acid 2.1 Magnesium Ammonia SARS-CoV-2 (PCR) DETECTED A* 03/12/20 03/13/20 03/14/20 03:30 04:20 01:17 WORKFORCE SPECIALIST WBC 29.7 H 30.4 H Hgb 9.4 L 8.7 L Plt Count 82 L 93 L Lactic Acid Magnesium 2.4 Ammonia SARS-CoV-2 (PCR) 03/14/20 03/14/20 01:17 WORKFORCE SPECIALIST 01:35 WORKFORCE SPECIALIST WBC Hgb Plt Count Lactic Acid 2.6 H Magnesium Ammonia 34 SARS-CoV-2 (PCR) EKG Reviewed by me: Yes (Tele - A-fib RVR in 120's) Hospitalist ROS - Medication Medications: Active Medications Generic Name Dose Route Start Last Admin Trade Name Freq PRN Reason Stop Dose Admin Albuterol/Ipratropium 3 ml 03/12/20 13:00 03/16/20 12:41 Ipratropium/Albuterol Sulfate 3 Ml Neb EZPAP 3 ml [id number] GAGANDEEP Administration Digoxin 0.25 mg 03/16/20 13:30 03/16/20 13:22 Digoxin 0.5 Mg/2 Ml Amp SLOW IVP 03/16/20 16:00 Not Given NOW GAGANDEEP Diphenoxylate HCl/Atropine 1 tab 03/06/20 14:54 03/09/20 13:50 Diphenoxylate Hcl/Atropine Tablet PO 1 tab Q6H PRN Administration Diarrhea/Loose Stools Epoetin Kehinde-epbx 2,000 unit 03/15/20 09:00 03/15/20 17:31 Epoetin Kehinde-Epbx (Esrd) 2,000 Unit/Ml Vial IVP 2,000 unit MoWeFr GAGANDEEP Administration Epoetin Kehinde-epbx 3,000 unit 03/15/20 09:00 03/15/20 17:31 Epoetin Kehinde-Epbx (Esrd) 3,000 Unit/Ml Vial IVP 3,000 unit MoWeFr GAGANDEEP Administration Famotidine 20 mg 03/03/20 21:00 03/15/20 20:59 Famotidine/Pf 20 Mg/2ml Vial SLOW IVP 20 mg QPM GAGANDEEP Administration Fluconazole 100 mg 03/08/20 09:00 03/16/20 12:03 Fluconazole 100 Mg Tab PO Not Given DAILY GAGANDEEP Guaifenesin 600 mg 03/11/20 21:00 03/16/20 12:04 Guaifenesin Er 600 Mg Tab PO Not Given Q12HR GAGANDEEP Heparin Sodium (Porcine) 5,000 units 03/03/20 09:00 03/16/20 12:04 Heparin 5,000 Units/Ml Vial SC Not Given BID GAGANDEEP Cefepime HCl 0.5 gm/ 100 mls @ 200 mls/hr 03/12/20 20:00 03/15/20 20:59 Miscellaneous Medication 1 IVPB 100 mls each/ Sodium Chloride 2000 GAGANDEEP Administration Insulin Human Lispro 0 units 03/03/20 02:14 03/16/20 05:27 Humalog 300 Units/3 Ml Vial SC 3 unit .MILD SLIDING SCALE PRN Administration Mild Correctional Scale Metoclopramide HCl 10 mg 03/15/20 18:00 03/16/20 12:16 Metoclopramide Hcl 10 Mg/2 Ml Vial IVP 10 mg Q6HR GAGANDEEP Administration Saccharomyces Boulardii 250 mg 03/06/20 09:00 03/16/20 12:04 Saccharomyces Boulardii 250 Mg Cap PO Not Given DAILY GAGANDEEP Sodium Chloride 10 ml 03/03/20 09:00 03/16/20 13:14 Flush - Normal Saline 10 Ml Syringe IVF 10 ml Q12HR GAGANDEEP Administration - Exam General Appearance: ill appearing General - other findings: BiPAP NIMV, somnolent Eye: PERRL, anicteric sclera ENT: normocephalic atraumatic, no oropharyngeal lesions Neck: supple, symmetric, no JVD, no thyromegaly, no lymphadenopathy Heart: no gallops, no rubs, normal peripheral pulses, irregular Heart - other findings: S1, S2 irregular, tachycardic Respiratory - other findings: diminished in bases bilat Gastrointestinal: soft, non-distended, normal bowel sounds, no palpable masses Extremities: no cyanosis, 1+ LE edema Skin: normal turgor Neurological: no new deficit Musculoskeletal: generalized weakness Psychiatric: somnolent, lethargic Hosp A/P (1) Acute respiratory failure with hypoxia Code(s): J96.01 - ACUTE RESPIRATORY FAILURE WITH HYPOXIA Status: Acute Plan: Remains on BiPAP NIMV, continue pulmonary support, check PCXR, continue Cefepime (2) Atrial fibrillation with RVR Code(s): I48.91 - UNSPECIFIED ATRIAL FIBRILLATION Status: Acute Plan: Digoxin 0.25mg IV x 1 dose now, Cardizem 10mg IVP x 1, NS 250ml IV bolus (3) Pneumonia due to COVID-19 virus Code(s): U07.1 - COVID-19; J12.89 - OTHER VIRAL PNEUMONIA Status: Acute (4) Acute metabolic encephalopathy Code(s): G93.41 - METABOLIC ENCEPHALOPATHY Status: Acute Plan: Persistent and multifactorial (5) Acute worsening of stage 3 chronic kidney disease Code(s): N18.30 - CHRONIC KIDNEY DISEASE, STAGE 3 UNSPECIFIED Status: Acute Plan: Continue HD per Renal service (6) Leukocytosis Code(s): D72.829 - ELEVATED WHITE BLOOD CELL COUNT, UNSPECIFIED Status: Acute Plan: Improved, continue serial monitoring, Cefepime IV - Plan plan discussed w/ family, continue antibiotics, [employer] school social science teacher, respiratory therapy Consults: Hospice, Palliative Care Continue supportive mgmt Continue Cefepime HD per Renal service today Continue NGT LIWS Palliative/hospice consult Limit sedation/pain meds Heparin 5,000u BID AM lab: BMP, CBC Likely home with hospice in 24h
--- NOTE | 2020-03-16 14:35 | PDOC.FMACP ---
Advance Care Planning - Problem (1) Acute respiratory failure with hypoxia Status: Acute Code(s): J96.01 - ACUTE RESPIRATORY FAILURE WITH HYPOXIA (2) Atrial fibrillation with RVR Status: Acute Code(s): I48.91 - UNSPECIFIED ATRIAL FIBRILLATION (3) Pneumonia due to COVID-19 virus Status: Acute Code(s): U07.1 - COVID-19; J12.89 - OTHER VIRAL PNEUMONIA (4) Acute metabolic encephalopathy Status: Acute Code(s): G93.41 - METABOLIC ENCEPHALOPATHY (5) Acute worsening of stage 3 chronic kidney disease Status: Acute Code(s): N18.30 - CHRONIC KIDNEY DISEASE, STAGE 3 UNSPECIFIED (6) Leukocytosis Status: Acute Code(s): D72.829 - ELEVATED WHITE BLOOD CELL COUNT, UNSPECIFIED - Note Participants: patient, family Summary: Advanced Care Planning was discussed. The diagnosis, prognosis and goals of care were discussed. Appropriate forms and documentation to accomplish the g oals of care were discussed. All questions were answered. The Palliative Care Team will be engaged to assist with completion of any outstanding forms that are needed. Discussed goals of care with and daughter. Family wanting to take patient home with hospice given continued clinical deterioration and pt's wish to return home. Code status confirmed DNAR. Will pursue hospice options as they will meet with the family today. Likely can transition home in 24h. Time Spent (mins): 25
[2020-03-16] MEDS ORDERED: Sodium Chloride 0.9% 250 ML IV SCH (14:45)
[2020-03-16 15:16] VITALS: TEMP 97
--- NOTE | 2020-03-16 15:19 | RAD ---
PORTABLE CHEST: Date: 03/16/2020 HISTORY: Respiratory failure. Atrial fibrillation. COMPARISON: 03/13/2020 study. FINDINGS: Right-sided HemoSplit catheter is present. Left-sided central line is noted. NG tube is below the hem idiaphragm. Heart size is enlarged. Pulmonary vessels are engorged with increased parahilar lung patsy ings. There is increased density in the bases, right greater than left, suggestion effusions. These c hanges have worsened compared to prior exam. IMPRESSION: Cardiomegaly with worsening pulmonary edema-type changes. Asymmetry in the right parahilar region swati es it difficult to exclude associated infiltrative change. POS: ONOFRE
[2020-03-16 17:36] LABS: Neutral Fats And/Or Soaps Normal (.)
--- NOTE | 2020-03-16 18:54 | PRG ---
DATE OF SERVICE: 03/16/2020 SUBJECTIVE: The patient is still very somewhat obtunded. Noted with following vital signs. OBJECTIVE: VITAL SIGNS: Blood pressure that continued to deteriorate. HEENT: Remarkable for mouth that is open on face mask. CARDIOVASCULAR SYSTEM: First and second sounds were heard. RESPIRATORY SYSTEM: Revealed a lot of transmitted sounds. DIGESTIVE SYSTEM: Showed evidence of ascites. EXTREMITIES: Showed peripheral edema. IMPRESSION: 1. Renal failure in the context of COVID infection. 2. Cardiopulmonary failure. PLAN: 1. The patient is to undergo dialysis today; however, the prognosis of this patient is very poor. 2. Further management will be dependent on the clinical course. Job ID: [id number]
--- NOTE | 2020-03-17 02:43 | DIS ---
DATE OF ADMISSION: 03/03/2020 DATE OF DISCHARGE: 03/16/2020 This is a summary. DATE OF EXPIRATION: 03/16/2020. FINAL DIAGNOSES: 1. Acute hypoxic respiratory failure, multifactorial. 2. Pneumonia secondary to COVID-19 virus. 3. Atrial fibrillation with rapid ventricular response. 4. Acute metabolic encephalopathy, multifactorial. 5. Acute on chronic kidney disease, stage 3. 6. Diabetes mellitus type 2. 7. Hypertension. CONSULTATIONS: 1. Dr. Fuchs. 2. Dr. Bowling with Pulmonology Critical Care Service. 3. Dr. Lillian Hayes with Nephrology Service. 4. Dr. Clemons with General Surgery Service. PERTINENT LABORATORY AND X-RAY FINDINGS: Creatinine ranged between 2.85 to 6.28. Estimated GFR ranged between 6 to 16. Lactic acid level ranged between 1.9 to 3.5, ferritin ranged between 414 to 514. CRP ranged between 15.3 to 23. D-dimer ranged between 7.97 to 16.42. CBC showed a white blood cell count ranging between 9.8 to 31.7, hemoglobin ranged between 8.0 to 12.0. COVID-19 PCR detected on 03/07/2020. Blood cultures x2 dated 03/02/2020, showed no growth at 5 days. C. difficile antigen and toxin dated 03/03/2020 negative. Stool culture dated 03/05/2020 showed presumptive Rylee albicans. Respiratory viral panel dated 03/07/2020 negative. Blood cultures x2 dated 03/14/2020, showed no growth at 48 hours. Portable chest x-ray dated 03/02/2020 showed bilateral pneumonia, left greater than right. CT angiogram of the chest dated 03/06/2020, showed no pulmonary embolus. Moderate ascites with splenomegaly noted. Abdominal radiographs dated 03/12/2020, showed gastric catheter in place. CT of the abdomen and pelvis dated on 03/14/2020, showed large amount of ascites. Cirrhotic morphology of the liver. Splenomegaly. Diffuse wall thickening of the colon. Diffuse body wall edema. CT of the brain without contrast dated 03/15/2020 showed no acute intracranial process. Chronic ischemic white matter changes noted. Portable chest x-ray dated on 03/16/2020, showed cardiomegaly with worsening pulmonary edema and asymmetry in the right parahilar region. HOSPITAL COURSE: The patient was initially admitted after presenting with shortness of breath, diarrhea, and general weakness with positive COVID-19 panel. The patient was initially noted with pneumonia suspicious for healthcare associated; however, was treated initially with broad-spectrum IV antibiotic therapy with cefepime, vancomycin, and metronidazole. The patient also underwent evaluation and received convalescent plasma and an aggressive pulmonary supportive management. The patient was slow to clinically improve with aggressive pulmonary supportive care, requiring intermittent use of BiPAP noninvasive mechanical ventilation. The patient continued on IV steroids; however, continued to have difficulty with respiratory compromise. The patient was also noted with acute kidney injury requiring hemodialysis due to worsening acidosis and uremia. The patient underwent multiple hemodialysis sessions after placement of a temporary hemodialysis catheter without specific improvement in overall mentation and/or encephalopathy. The patient received supplemental nutrition through NG tube methods. However, this was discontinued due to increasing gastric residuals. The patient continued to receive broad-spectrum IV antibiotic therapy, however, did not clinically improve. The patient was noted with hypotension and initiated on hydrocortisone intravenously for support of blood pressure as well as inflammatory process of the COVID-19 virus. The patient continued to clinically decline despite all aggressive and comprehensive interventions at which point, discussions were had with the family regarding goals of care. The patient's family decided to pursue hospice at home and the discussions were centered regarding transfer of the patient home potentially on 03/17/2020. The patient suddenly developed hypotension and worsening hypoxia on BiPAP noninvasive mechanical ventilation. The patient was also noted in atrial fibrillation with rapid ventricular response, not amenable to IV digoxin or Cardizem. The patient at 1719 p.m. on 03/16/2020 with family at the bedside. Decedent affairs were notified with release of the body to the [facility]. Job ID: [id number]
--- NOTE | 2020-03-17 19:31 | EKG ---
Test Reason : STAT Blood Pressure : / mmHG Vent. Rate : 099 BPM Atrial Rate : 099 BPM P-R Int : 148 ms QRS Dur : 098 ms QT Int : 354 ms P-R-T Axes : 044 -10 161 degrees QTc Int : 454 ms Normal sinus rhythm Left ventricular hypertrophy with repolarization abnormality Abnormal ECG When compared with ECG of 06-MAR-2020 07:05, Sinus rhythm has replaced Atrial flutter ST no longer depressed in Inferior leads ST no longer depressed in Lateral leads Confirmed by ILIR STONE, DR. Cade ([id number]) on 03/17/2020 7:30:59 PM Referred By: OMAR REYNA Confirmed By:DR. Rayo HAZEL MD
--- NOTE | 2020-03-18 03:55 | PQF ---
Dear : Wale Frost Date 03/18/2020 Please exercise your independent, professional judgment in responding to the clarification form. Clinical indicators are provided on the bottom of this form for your review Can you please further clarify if Sepsis is ruled in or ruled out? Sepsis [ ] Ruled in diagnosis [ ] Continue to treat [ ] Resolved [ x ] Ruled out diagnosis [ ] Improving [ ] Cannot rule out diagnosis [ ] Other diagnosis [ ] Unable to determine Physician Signature: Date/Time: For continuity of documentation, please document condition throughout progress notes and discharge summary. Thank You. To be completed by CDI/Coding staff for physician review: Present Clinical Indicators - Signs / Symptoms / Labs Results and Location in Medical Record [ x ] VS: BP 158/41, P: 95, RR: 29, T: 98.4 ED Provider pg.2 [ x ] Consistent with severe sepsis, acute renal failure, bilateral pneumonia ED Provider pg.3 [ x ] Sepsis ED Provider pg.3 [ x ] Diagnosed with covid-19 two weeks agoFound to have elevated WBC count of 27.8, Elevated lactic acid H and P pg.2 [ x ] Lactic acidosis H and P pg.3 [ x ] WBC: 27.8H. 24.4H, 9.8, 13.7H, 21.4H, 26.8H, 330.8H Laboratory [ x ] Blood culture no growth at 5 days Microbiology [ x ] Lactic acid 3.4H, 3.5H, 3.3H, 2.9H Laboratory [ x ] Metabolic encephalopathy DS pg.1 Present Risk Factors Results and Location in Medical Record [ x ] 74 years old H and P pg.1 [ x ] COVID19 Pneumonia H and P pg.1 [ x ] Acute on chronic CKD 3 DS pg.1 [ x ] Acute respiratory failure DS pg.1 [ x ] HTN DS pg.1 [ x ] DM DS pg.1 Present Treatments Results and Location in Medical Record [ x ] Chest X ray 03/04 Chest X ray 03/04 [ x ] Pulmonary Consult Dr. Fuchs 03/03 [ x ] IV Fluids MAR [ x ] WBC monitoring Laboratory [ x ] Lactic acid monitoring Laboratory [ x ] Blood culture Microbiology [ x ] BIPAP DS pg.2 [ x ] Cefepime 2gm IV MAR [ x ] Vancomycin 1gm IV MAR [ x ] Levaquin 750mg IV MAR CDS/Clipper Operator Signature: Jared Knox Phone #: ext [phone] Date 03/18/2020 This is a permanent part of the Medical Record [facility]
== END 2020-03-16 17:19 | disposition expired | DRG 177 ==
LOC: ERS 21:35 → IMCU/EMU 03-03 01:33 → T4-B 03-05 18:14 → IMCU/EMU 03-06 17:25
PROVIDERS: ADMIT Internal Medicine; ATTEND Family Medicine
PROC: 8E0ZXY6 Isolation (ICD-10-PCS; 2020-03-03)
PROC: 06HY33Z Insertion of Infusion Device into Lower Vein, Percutaneous Approach (ICD-10-PCS; 2020-03-03)
PROC: 05PYX3Z Removal of Infusion Device from Upper Vein, External Approach (ICD-10-PCS; 2020-03-03)
PROC: 5A1D70Z Performance of Urinary Filtration, Intermittent, Less than 6 Hours Per Day (ICD-10-PCS; 2020-03-03)
PROC: XW13325 Transfusion of Convalescent Plasma (Nonautologous) into Peripheral Vein, Percutaneous Approach, New Technology Group 5 (ICD-10-PCS; principal; 2020-03-08)
PROC: 0JH63XZ Insertion of Tunneled Vascular Access Device into Chest Subcutaneous Tissue and Fascia, Percutaneous Approach (ICD-10-PCS; 2020-03-12)
PROC: 02HV33Z Insertion of Infusion Device into Superior Vena Cava, Percutaneous Approach (ICD-10-PCS; 2020-03-12)
PROC: B548ZZA Ultrasonography of Superior Vena Cava, Guidance (ICD-10-PCS; 2020-03-12)
PROC: 5A09457 Assistance with Respiratory Ventilation, 24-96 Consecutive Hours, Continuous Positive Airway Pressure (ICD-10-PCS; 2020-03-15)
DX: U07.1 COVID-19 (principal); J12.89 Other viral pneumonia; J96.01 Acute respiratory failure with hypoxia; K85.90 Acute pancreatitis without necrosis or infection, unspecified; G92 Toxic encephalopathy; N17.9 Acute kidney failure, unspecified; E87.2 Acidosis; E87.1 Hypo-osmolality and hyponatremia; E46 Unspecified protein-calorie malnutrition; I48.92 Unspecified atrial flutter; Z66 Do not resuscitate; Z51.5 Encounter for palliative care; E78.5 Hyperlipidemia, unspecified; N18.30 Chronic kidney disease, stage 3 unspecified; E11.22 Type 2 diabetes mellitus with diabetic chronic kidney disease; I12.9 Hypertensive chronic kidney disease with stage 1 through stage 4 chronic kidney disease, or unspecified chronic kidney disease; F41.9 Anxiety disorder, unspecified; E83.51 Hypocalcemia; D63.1 Anemia in chronic kidney disease; E66.01 Morbid (severe) obesity due to excess calories; E88.81 Metabolic syndrome and other insulin resistance; T38.0X5A Adverse effect of glucocorticoids and synthetic analogues, initial encounter; D72.829 Elevated white blood cell count, unspecified; D69.6 Thrombocytopenia, unspecified; I48.91 Unspecified atrial fibrillation; R09.2 Respiratory arrest; E87.70 Fluid overload, unspecified; Z88.2 Allergy status to sulfonamides; Z98.51 Tubal ligation status; Z90.710 Acquired absence of both cervix and uterus; Z90.49 Acquired absence of other specified parts of digestive tract; Z68.38 Body mass index [BMI] 38.0-38.9, adult
CPT/HCPCS: 36415; 36416; 36430; 51701; 70450; 71045; 71275; 74018; 74176; 80048; 80053; 80076; 80202; 81003; 81015; 82040; 82140; 82550; 82553; 82705; 82728; 82805; 82947; 83605; 83630; 83690; 83735; 84484; 85025; 85379; 85652; 86140; 86706; 86850; 86900; 86901; 87040; 87045; 87046; 87081; 87324; 87340; 87427; 87449; 87633; 87635; 90935; 93005; 93010; 93970; 94640; 94660; 96365; 96367; C1751; C1752; G0257; J0692; J1100; J1160; J1642; J1644; J1650; J1720; J1956; J2001; J2060; J2543; J2765; J3370; J3490; J7030; J7050; J7070; J7620; P9017; P9047; Q5105; Q9967; S0028; U0003